=== PATIENT | male | born 1955 | race Caucasian/White ===

== ENCOUNTER 2017-08-27 12:43 | Emergency (ER) | payer OTHER ==
[2017-08-27] MEDS: DERMABOND TOPICAL SKIN ADHESIVE TOP (13:15)
[2017-08-27] MEDS: NS 1,000 ML IV (13:25)
[2017-08-27] MEDS: levETIRAcetam INJection 1,000 MG in D5W 100 ML IV (13:29)
[2017-08-27 13:32] LABS: BASO % 0.2 % (0.0-1.0); EOS % 0.2 % (0.0-3.0); HEMATOCRIT 36.1 % (42.0-52.0); HEMOGLOBIN 12.3 g/dl (13.5-17.5); IMMATURE GRANULOCYTE % 0.4 % (0-3.0); LYMPH # 0.7 10^3/uL (1.5-4.5); MEAN CORPUSCULAR HGB CONC 34.1 g/dl (32.0-36.5); MEAN CORPUSCULAR VOLUME 105.6 fl (80.0-96.0); MONO # 0.2 10^3/uL (0.0-0.8); MONO % 3.3 % (0.0-5.0); NEUTROPHILS # 4.6 10^3/uL (1.8-7.7); NEUTROPHILS % 83.9 % (36.0-66.0); PLATELET COUNT, AUTOMATED 140 10^3/uL (150-450); RED BLOOD COUNT 3.42 10^6/uL (4.30-6.10); RED CELL DISTRIBUTION WIDTH 13.7 % (11.5-14.5); WHITE BLOOD COUNT 5.4 10^3/uL (4.0-10.0)
[2017-08-27 14:31] LABS: LACTIC ACID SEPSIS PROTOCOL 1.2 MMOL/L (0.4-2.0)
[2017-08-27 14:34] LABS: ALBUMIN 3.8 GM/DL (3.2-5.2); ALBUMIN/GLOBULIN RATIO 1.03 (1.00-1.93); ALKALINE PHOSPHATASE 37 U/L (45-117); ALT/SGPT 77 U/L (12-78); ANION GAP 6 MEQ/L (8-16); AST/SGOT 67 U/L (7-37); BILIRUBIN,DIRECT 0.3 MG/DL (0.0-0.2); BILIRUBIN,TOTAL 0.6 MG/DL (0.2-1.0); BLOOD UREA NITROGEN 18 MG/DL (7-18); CALCIUM LEVEL 8.1 MG/DL (8.8-10.2); CARBON DIOXIDE LEVEL 29 MEQ/L (21-32); CHLORIDE LEVEL 107 MEQ/L (98-107); CPK CREATINE PHOSPHOKINASE 45 U/L (39-308); CREATININE FOR GFR 0.82 MG/DL (0.70-1.30); ETHYL ALCOHOL (ETHANOL) 0.007 % (0.000-0.010); GLOMERULAR FILTRATION RATE > 60.0 (>49); GLUCOSE, FASTING 134 MG/DL (70-100); POTASSIUM SERUM 4.5 MEQ/L (3.5-5.1); SALICYLATE LEVEL 3.4 MG/DL (5.0-30.0); SODIUM LEVEL 142 MEQ/L (136-145); TOTAL PROTEIN 7.5 GM/DL (6.4-8.2); TROPONIN I < 0.02 NG/ML (< 0.10)
[2017-08-27 14:37] LABS: ACETAMINOPHEN LEVEL < 2.0 UG/ML (10.0-30.0)
[2017-08-27 14:39] LABS: CK-MB VALUE MASS < 1.0 NG/ML (<3.6); MB/CK RELATIVE INDEX 2.22 (< OR =4); THYROID STIMULATING HORMONE 0.721 uIU/ML (0.358-3.740)
== END 2017-08-27 15:23 | disposition home or self-care (01) ==
LOC: M ED 12:43
DX: G40.209 Localization-related (focal) (partial) symptomatic epilepsy and epileptic syndromes with complex partial seizures, not intractable, without status epilepticus (principal); S01.81XA Laceration without foreign body of other part of head, initial encounter; X58.XXXA Exposure to other specified factors, initial encounter; Y92.89 Other specified places as the place of occurrence of the external cause; R00.1 Bradycardia, unspecified; I51.9 Heart disease, unspecified; Z87.891 Personal history of nicotine dependence
CPT/HCPCS: J1953

== ENCOUNTER 2020-10-27 16:31 | Inpatient (IN) | payer OTHER ==
[2020-10-27] VITALS (20 sets, daily range): BP systolic 70–131; BP diastolic 50–77
[~2020-10-27] VITALS: Ht 172.7 cm; Wt 75.2 kg
[2020-10-27] MEDS ORDERED: LORazepam 2 MG/ML VIAL IV STA (16:40)
[2020-10-27] MEDS ORDERED: LORazepam 2 MG/ML VIAL As Ordered ONE (16:41)
[2020-10-27] MEDS ORDERED: PROPOFOL 1,000 MG/100 ML VIAL As Ordered ONE (17:04)
[2020-10-27 17:13] LABS: BASO # 0.1 10^3/uL (0.0-0.2); BASO % 0.5 % (0.0-1.0); EOS # 0.1 10^3/uL (0.0-0.5); EOS % 0.7 % (0.0-3.0); HEMOGLOBIN 13.8 g/dl (13.5-17.5); LYMPH % 18.8 % (24.0-44.0); MEAN CORPUSCULAR HEMOGLOBIN 36.3 pg (27.0-33.0); MEAN CORPUSCULAR HGB CONC 32.1 g/dl (32.0-36.5); MEAN CORPUSCULAR VOLUME 113.2 fl (80.0-96.0); MONO # 1.2 10^3/uL (0.0-0.8); MONO % 11.3 % (2.0-8.0); NEUTROPHILS # 6.9 10^3/uL (1.5-8.5); NEUTROPHILS % 66.5 % (36.0-66.0); PLATELET COUNT, AUTOMATED 137 10^3/uL (150-450); WHITE BLOOD COUNT 10.4 10^3/uL (4.0-10.0)
[2020-10-27] MEDS ORDERED: propofoL 1,000 MG in IV 1 EA IV SCH (17:20)
[2020-10-27 17:47] LABS: ALBUMIN 3.9 GM/DL (3.2-5.2); ALT/SGPT 59 U/L (12-78); BILIRUBIN,DIRECT 0.3 MG/DL (0.0-0.2); BILIRUBIN,TOTAL 0.8 MG/DL (0.2-1.0); BLOOD UREA NITROGEN 10 MG/DL (7-18); CALCIUM LEVEL 9.4 MG/DL (8.8-10.2); CARBON DIOXIDE LEVEL 8 MEQ/L (21-32); CHLORIDE LEVEL 96 MEQ/L (98-107); CK-MB VALUE MASS 15.2 NG/ML (<3.6); CPK CREATINE PHOSPHOKINASE 526 U/L (39-308); CREATININE FOR GFR 1.32 MG/DL (0.70-1.30); GLOMERULAR FILTRATION RATE 58.1 (>49); GLUCOSE, FASTING 162 MG/DL (70-100); MB/CK RELATIVE INDEX 2.89 (< OR =4); SODIUM LEVEL 138 MEQ/L (136-145); TOTAL PROTEIN 7.5 GM/DL (6.4-8.2); TROPONIN I < 0.02 NG/ML (< 0.10)
--- NOTE | 2020-10-27 18:00 | REPVR ---
PROCEDURE INFORMATION: Exam: XR Chest Exam date and time: 10/27/2020 5:28 PM Age: 65 years old Clinical indication: Other: Post intubation TECHNIQUE: Imaging protocol: XR of the chest. Views: 1 view. COMPARISON: No relevant prior studies available. FINDINGS: Tubes, catheters and devices: Tip of endotracheal tube 4 cm proximal to the cruzito. Lungs: Well inflated lungs may indicate COPD. No acute infiltrates. Prominent pulmonary hilar bilaterally with increased density suggesting calcified lymphadenopathy. Pleural spaces: Unremarkable. No pleural effusion. No pneumothorax. Heart/Mediastinum: See "Lungs" finding. Bones/joints: Status post sternotomy. IMPRESSION: 1. Well inflated lungs may indicate COPD. 2. Prominent pulmonary hilar bilaterally with increased density suggesting calcified lymphadenopathy. 3. No acute findings. Electronically signed by: Toni Thompson On 10/27/2020 18:00:25 PM
--- NOTE | 2020-10-27 18:02 | REPVR ---
PROCEDURE INFORMATION: Exam: XR Chest Exam date and time: 10/27/2020 5:28 PM Age: 65 years old Clinical indication: Other: Change of the tube; Additional info: Change of tube position TECHNIQUE: Imaging protocol: XR of the chest. Views: 1 view. COMPARISON: No relevant prior studies available. FINDINGS: Tubes, catheters and devices: Tip of endotracheal tube 4.3 cm proximal to the cruzito. Lungs: COPD. Pleural spaces: Unremarkable. No pleural effusion. No pneumothorax. Heart/Mediastinum: Prominent pulmonary hilar bilaterally with probable bilateral calcified lymphadenopathy. Bones/joints: Status post sternotomy. IMPRESSION: 1. COPD. 2. Prominent pulmonary hilar bilaterally with probable bilateral calcified lymphadenopathy. 3. No acute findings. Electronically signed by: Toni Thompson On 10/27/2020 18:02:09 PM
[2020-10-27 18:04] LABS: ETHYL ALCOHOL (ETHANOL) 0.042 % (0.000-0.010)
--- NOTE | 2020-10-27 18:12 | REPVR ---
PROCEDURE INFORMATION: Exam: CT Chest Without Contrast; Diagnostic Exam date and time: 10/27/2020 5:38 PM Age: 65 years old Clinical indication: Injury or trauma; Fall; Blunt trauma (contusions or hematomas) TECHNIQUE: Imaging protocol: Diagnostic computed tomography of the chest without contrast. 3D rendering (Not supervised by radiologist): MIP and/or 3D reconstructed images were created by the technologist. Radiation optimization: All CT scans at this facility use at least one of these dose optimization techniques: automated exposure control; mA and/or kV adjustment per patient size (includes targeted exams where dose is matched to clinical indication); or iterative reconstruction. COMPARISON: CR Chest, 1 view 10/27/2020 4:55 PM FINDINGS: Tubes, catheters and devices: Tip of endotracheal tube 3.7 cm proximal to the cruzito. NG tube tip located in the stomach. Lungs: Coarse parenchymal stranding with small foci of ground-glass opacity demonstrated in the posterior segment of the right upper lobe, superior segment of the right lower lobe, and right middle lobe. Findings may represent a combination of chronic fibrotic scarring associated with atelectasis. A small focus of pneumonitis not absolutely excluded. Calcified granuloma right lower lobe. Pleural spaces: Unremarkable. No pneumothorax. No pleural effusion. Heart: There is moderate atherosclerotic calcification of the coronary arteries. Aorta: There is fusiform dilatation of the supravalvular ascending thoracic aorta which measures 3.7 cm. maximally. There is no saccular component. There is mild atherosclerosis in the thoracic aorta. Lymph nodes: Calcified right hilar lymphadenopathy. Bones/joints: The spine demonstrates mild degenerative changes. Status post sternotomy. Soft tissues: Unremarkable. IMPRESSION: 1. Coarse parenchymal infiltrates with ground-glass opacities as described above. Finding likely chronic although the possibility of an acute pneumonitis not absolutely excluded. 2. There is fusiform dilatation of the supravalvular ascending thoracic aorta which measures 3.7 cm. maximally. There is no saccular component. 3. Calcified right hilar lymphadenopathy. 4. Findings consistent with remote intrathoracic granulomatous infection. Electronically signed by: Toni Thompson On 10/27/2020 18:12:26 PM
--- NOTE | 2020-10-27 18:18 | REPVR ---
PROCEDURE INFORMATION: Exam: CT Head Without Contrast Exam date and time: 10/27/2020 5:38 PM Age: 65 years old Clinical indication: Injury or trauma; Fall; Blunt trauma (contusions or hematomas) TECHNIQUE: Imaging protocol: Computed tomography of the head without contrast. Axial and coronal reformatted images were created and reviewed. Radiation optimization: All CT scans at this facility use at least one of these dose optimization techniques: automated exposure control; mA and/or kV adjustment per patient size (includes targeted exams where dose is matched to clinical indication); or iterative reconstruction. COMPARISON: CT Head without contrast 08/27/2017 1:25 PM FINDINGS: Brain: Patchy areas of hypoattenuation in the periventricular and subcortical white matter, consistent with chronic small vessel ischemic disease. No CT evidence of acute intracranial hemorrhage or acute territorial infarction. No significant mass effect or midline shift. Basal cisterns patent. Cerebral ventricles: Prominence of the cortical sulci, cisterns and ventricular system, consistent with cerebral and cerebellar volume loss. Paranasal sinuses: Unremarkable. No fluid levels. Mastoid air cells: Partial opacification of the right mastoid air cells. Vasculature: Calcific atherosclerotic disease in the cavernous internal carotid arteries, as well as the vertebro-basilar system. Bones/joints: No acute osseous abnormality. Soft tissues: Grossly unremarkable. IMPRESSION: 1. No CT evidence of acute intracranial pathology. 2. Additional findings, as above. Electronically signed by: Jose Ordonez On 10/27/2020 18:18:15 PM
[2020-10-27] MEDS ORDERED: MIDAZOLAM INJ 2MG/2ML VIAL (J2250 PER 1MG) As Ordered ONE ×2 (18:19→18:20)
--- NOTE | 2020-10-27 18:23 | REPVR ---
PROCEDURE INFORMATION: Exam: CT Cervical Spine Without Contrast Exam date and time: 10/27/2020 5:38 PM Age: 65 years old Clinical indication: Injury or trauma; Fall; Blunt trauma TECHNIQUE: Imaging protocol: Computed tomography images of the cervical spine without contrast. Axial, coronal and sagittal reformatted images were created and reviewed. Radiation optimization: All CT scans at this facility use at least one of these dose optimization techniques: automated exposure control; mA and/or kV adjustment per patient size (includes targeted exams where dose is matched to clinical indication); or iterative reconstruction. COMPARISON: CT Head without contrast 08/27/2017 1:25 PM FINDINGS: Bones/joints: Osteopenia. Exaggeration of the normal cervical lordosis. No CT evidence of acute fracture, dislocation or subluxation. Alignment anatomic. Vertebral body heights maintained. Discs/Spinal canal/Neural foramina: Mild multilevel degenerative changes, characterized by disc space narrowing, osteophytosis and uncovertebral and facet joint hypertrophy. Mild multilevel spinal canal and neural foraminal narrowing. Lungs: Grossly unremarkable. Soft tissues: Grossly unremarkable. IMPRESSION: 1. No CT evidence of acute cervical spine traumatic injury. 2. Additional findings, as above. Electronically signed by: Jose Ordonez On 10/27/2020 18:22:31 PM
[2020-10-27 18:32] LABS: AMPHETAMINES LEVEL URINE NEGATIVE (NEGATIVE); BARBITURATES URINE NEGATIVE (NEGATIVE); BENZODIAZEPINES URINE NEGATIVE (NEGATIVE); CANNABINOIDS URINE POSITIVE (NEGATIVE); COCAINE METABOLITE URINE NEGATIVE (NEGATIVE); METHADONE URINE NEGATIVE (NEGATIVE); OPIATES URINE NEGATIVE (NEGATIVE); PHENCYCLIDINE URINE NEGATIVE (NEGATIVE)
[2020-10-27] MEDS ORDERED: MIDAZOLAM HCL 50 MG in D5W 40 ML IV SCH (18:35)
[2020-10-27 18:59] LABS: RSV AMPLIFICATION NEGATIVE (NEGATIVE)
[2020-10-27] MEDS ORDERED: LR 1,000 ML IV ONE (19:05)
--- NOTE | 2020-10-27 19:32 | HPEPDOC ---
[facility] Medical History & Physical Date of Admission Oct 27, 2020 Date of Service: Oct 27, 2020 Attending Physician: RAYMON CARLOS MD History and Physical CHIEF COMPLAINT: Seizure, altered mental status, respiratory failure HISTORY OF PRESENT ILLNESS: This is a 65-year-old gentleman with past medical history of heart valve replacement, polysubstance abuse, alcohol dependency, seizure disorder who was brought in by EMS for altered mental status and seizure. Per EMS report, patient was found in the hallway of his apartment having witnessed seizure by his neighbor. EMS administered Ativan and his seizure broke. However, when he was brought into the emergency department, he had another generalized tonic-clonic seizure that required Ativan and Versed. He was also intubated for airway protection by emergency department. No other information was able to be obtained as there was no family member. I spoke with Jocelyn Rojas who was his partner but broke up 3 years ago. I was not able to obtain any other useful information from her as they have been for the last 3 years. She did tell me that patient had a heart valve placed at [facility]. Based on chart review available, patient had history of polysubstance abuse most notable for cannabinoid and alcohol. He does frequently visit to the emergency department for alcohol intoxication. Upon arrival to the hospital, patient had a tonic-clonic seizure therefore patient was intubated for airway protection. Vital signs stable on admission other than tachycardia. CBC with slight leukocytosis of WBC 10,000. He has slight MITCH with creatinine of 1.3. However, his anion gap is 32. Lactic acid level is 27. He has slight mild rhabdomyolysis with CK of 500s. Serum alcohol level is 4 times the upper limit of normal. Urine toxicology also positive for cannabinoid. [id number] troponin was negative. CT scan of the brain chest and cervical spine showed no gross abnormality. ICU was consulted for further management. PAST MEDICAL HISTORY: Unverified, based on chart review, patient has history of heart valve repl acement, seizure disorder, history of polysubstance abuse and alcoholism. PAST SURGICAL HISTORY: Heart valve replacement SOCIAL HISTORY: Patient is from his partner. He has history of cannabinoid use. He is an alcoholic. FAMILY HISTORY: Unable to obtain as patient is currently intubated and sedated. ALLERGIES: Please see below. REVIEW OF SYSTEMS: Unable to obtain as patient is currently intubated and sedated. HOME MEDICATIONS: Please see below. PHYSICAL EXAMINATION: VITAL SIGNS: See below. GENERAL APPEARANCE: Chronically ill-appearing. Agitated. HEENT: No evidence of JVD or cervical adenopathy. Intubated. CARDIOVASCULAR: Systolic murmur with no evidence of extra heart sounds. LUNGS: Clear to auscultation bilaterally with no evidence of wheezing, rhonchi, crackles. ABDOMEN: Soft nontender with active bowel sounds. MUSCULOSKELETAL: No evident joint effusion or joint swelling. EXTREMITIES: No evidence of clubbing or pedal edema. NEUROLOGICAL: Nonfocal. PSYCHIATRIC: Cannot be assessed. LABORATORY DATA: See below. MICROBIOLOGY: Please see below. ASSESSMENT: This is a 65-year-old gentleman with past medical history of heart valve replacement, polysubstance abuse, alcohol dependency, seizure disorder who was brought in by EMS for altered mental status and seizure. #Acute respiratory failure secondary to inability to protect airway -We will remain intubated on mechanical ventilator. Setting at respiratory rate of 18, tidal volume 450, PEEP 5, FiO2 50%. Post intubation ABG has been ordered. #Metabolic encephalopathy secondary to postictal state -Patient will remain intubated and sedated with propofol and Versed plus Versed as needed. He will most likely need EEG. #MITCH -Likely secondary to prerenal component with intrinsic renal secondary from rh abdomyolysis. Patient received 1 L of isotonic crystalloid in the emergency department. He will receive additional 1 L of lactated Ringer's along with lactic ringer at 100 cc/h. We will continue monitor urine output. #Anion gap metabolic acidosis secondary to severe lactic acidosis -This is likely from seizure activity. We will continue to trend lactate until normalized. He will continue with maintenance IV fluid ministration. #Alcohol intoxication -Patient will be sedated on Versed and propofol at this point. He will need to be monitored for CIWA when she is extubated. #History of seizure disorder -It appears that patient was taking Keppra in the past as evident by supratherapeutic Keppra level. I have sent Keppra level. I will get a more information from [facility] neurology department which antiepileptic medication that he is taking. -He may need to have EEG before he gets extubated. #Rhabdomyolysis -From seizure activity. We will continue with maintenance IV fluid ministration. #Macrocytosis -Likely secondary to folate deficiency. Patient will receive thiamine and folate acid supplementation. #History of the heart valve replacement -It appears based on the CT scan of the chest he has a bioprosthetic mitral valve placed. However I do not have any information on this. I have requested [facility] to obtain and fax records of his heart surgery. It appears he is not on any anticoagulant. DVT prophylaxis: Heparin subcutaneous GI prophylaxis: Protonix Diet: N.p.o. Vital Signs Vital Signs Date Time Temp Pulse Resp B/P (MAP) Pulse Ox O2 Delivery O2 Flow Rate FiO2 10/27/20 18:52 146 115/70 99 Ventilator 10/27/20 17:20 40 10/27/20 17:19 98.8 10/27/20 17:15 16 Laboratory Data Labs 24H Laboratory Tests 2 10/27/20 16:53: Immature Granulocyte % (Auto) 2.2, Neutrophils (%) (Auto) 66.5H, Lymphocytes (%) (Auto) 18.8L, Monocytes (%) (Auto) 11.3H, Eosinophils (%) (Auto) 0.7, Basophils (%) (Auto) 0.5, Neutrophils # (Auto) 6.9, Lymphocytes # (Auto) 2.0, Monocytes # (Auto) 1.2H, Eosinophils # (Auto) 0.1, Basophils # (Auto) 0.1, Nucleated Red Blood Cells % (auto) 0.0, Anion Gap 34H, Glomerular Filtration Rate 58.1, Calcium Level 9.4, Total Bilirubin 0.8, Direct Bilirubin 0.3H, Aspartate Amino Transf (AST/SGOT) 65H, Alanine Aminotransferase (ALT/SGPT) 59, Alkaline Phosphatase 63, Total Creatine Kinase 526H, Creatine Kinase MB 15.2H, Creatine Kinase MB Relative Index 2.89, Troponin I < 0.02, Total Protein 7.5, Albumin 3.9, Albumin/Globulin Ratio 1.1, Thyroid Stimulating Hormone (TSH) 2.320, Ethyl Alcohol Level 0.042H 10/27/20 16:54: Urine Opiates Screen NEGATIVE, Urine Methadone Screen NEGATIVE, Urine Barbiturates Screen NEGATIVE, Urine Phencyclidine Screen NEGATIVE, Urine Amphetamines Screen NEGATIVE, Urine Benzodiazepines Screen NEGATIVE, Urine Cocaine Metabolite Screen NEGATIVE, Urine Cannabinoids Screen POSITIVEH 10/27/20 16:55: Lactic Acid Level 27.5*H 10/27/20 17:31: POC Troponin I (Misc) 0.01 10/27/20 17:36: Bedside Glucose (Misc Panel) 147H 10/27/20 17:41: Coronavirus (COVID-19)(PCR) NEGATIVE, Influenza Type A (RT-PCR) NEGATIVE, Influenza Type B (RT-PCR) NEGATIVE, Respiratory Syncytial Virus (PCR) NEGATIVE CBC/BMP Laboratory Tests 10/27/20 16:53 Allergies Coded Allergies: No Known Allergies (Unverified , 08/27/17) A-FIB/CHADSVASC A-FIB History Current/History of A-Fib/PAF?: No Current PO Anticoag Therapy: No RAYMON CARLOS MD Oct 27, 2020 19:31
[2020-10-27] MEDS ORDERED: ROCURONIUM BROMIDE 50 MG/5 ML VIAL IV SCH (19:40)
[2020-10-27] MEDS ORDERED: MIDAZOLAM INJ 2MG/2ML VIAL (J2250 PER 1MG) IV ONE (19:40)
[2020-10-27] MEDS ORDERED: ETOMIDATE INJ 20MG/10ML VIAL IV STA (19:40)
[2020-10-27] MEDS ORDERED: LR 1,000 ML IV SCH (19:45)
[2020-10-27 19:59] LABS: ACETAMINOPHEN LEVEL < 2.0 UG/ML (10.0-30.0); SALICYLATE LEVEL 3.6 MG/DL (5.0-30.0)
[2020-10-27] MEDS: HEPARIN SOD (PORCINE) 5000UNITS/ML 1ML VIAL/SYRINGE SC SCH (21:11)
[2020-10-27] MEDS: MIDAZOLAM INJ 2MG/2ML VIAL (J2250 PER 1MG) IV PRN (21:17)
[2020-10-27] MEDS: CHLORHEXIDINE GLUCONATE 0.12 % 15ML UDC (PERIDEX ORAL RINSE) MT SCH (21:18)
[2020-10-27] MEDS ORDERED: REFRIGERATOR IV KEYS XX PRN (21:30)
[2020-10-27] MEDS: NOREPINEPHRINE BITARTRATE 8 MG in D5W 492 ML IV SCH (21:46)
[2020-10-27] MEDS: MIDAZOLAM HCL 100 MG in D5W 80 ML IV SCH (22:14)
[2020-10-27] MEDS: propofoL 1,000 MG in IV 1 EA IV SCH (22:17)
[2020-10-28] VITALS (91 sets, daily range): BP systolic 87–144; BP diastolic 56–89
[2020-10-28] MEDS: propofoL 1,000 MG in IV 1 EA IV SCH ×3 (03:45→18:26)
[2020-10-28 05:24] LABS: BASO % 0.2 % (0.0-1.0); EOS % 0.2 % (0.0-3.0); HEMATOCRIT 33.1 % (42.0-52.0); HEMOGLOBIN 11.7 g/dl (13.5-17.5); LYMPH # 1.1 10^3/uL (1.5-5.0); LYMPH % 9.6 % (24.0-44.0); MEAN CORPUSCULAR HEMOGLOBIN 35.7 pg (27.0-33.0); MEAN CORPUSCULAR HGB CONC 35.3 g/dl (32.0-36.5); MEAN CORPUSCULAR VOLUME 100.9 fl (80.0-96.0); MONO # 1.1 10^3/uL (0.0-0.8); MONO % 9.6 % (2.0-8.0); NEUTROPHILS # 8.9 10^3/uL (1.5-8.5); PLATELET COUNT, AUTOMATED 101 10^3/uL (150-450); RED BLOOD COUNT 3.28 10^6/uL (4.30-6.10); WHITE BLOOD COUNT 11.2 10^3/uL (4.0-10.0)
[2020-10-28 05:53] LABS: ALT/SGPT 56 U/L (12-78); BLOOD UREA NITROGEN 13 MG/DL (7-18); CALCIUM LEVEL 8.2 MG/DL (8.8-10.2); CARBON DIOXIDE LEVEL 27 MEQ/L (21-32); CHLORIDE LEVEL 102 MEQ/L (98-107); CREATININE FOR GFR 0.92 MG/DL (0.70-1.30); GLOMERULAR FILTRATION RATE > 60.0 (>49); GLUCOSE, FASTING 118 MG/DL (70-100); POTASSIUM SERUM 3.2 MEQ/L (3.5-5.1); SODIUM LEVEL 138 MEQ/L (136-145); TOTAL PROTEIN 5.7 GM/DL (6.4-8.2)
[2020-10-28] MEDS: HEPARIN SOD (PORCINE) 5000UNITS/ML 1ML VIAL/SYRINGE SC SCH ×3 (06:15→21:15)
[2020-10-28] MEDS ORDERED: POTASSIUM CHLORIDE 10% LIQ 20 MEQ/15 ML UDC PO ONE (06:40)
[2020-10-28] MEDS ORDERED: ASPI-161 PO (07:10)
[2020-10-28] MEDS ORDERED: LEVE750T5 PO (07:10)
[2020-10-28] MEDS ORDERED: METO1TAB32 PO (07:10)
[2020-10-28] MEDS ORDERED: D31000TA2 PO (07:10)
[2020-10-28] MEDS ORDERED: ROSU40TA4 PO (07:10)
[2020-10-28] MEDS ORDERED: COMMENTS (07:11)
[2020-10-28] MEDS ORDERED: HOME MED LIST COMPLETE! XX SCH (07:15)
--- NOTE | 2020-10-28 08:09 | IPNPDOC ---
Subjective Date Seen The patient was seen on 10/28/20. Subjective Chief Complaint/HPI Patient remains intubated and sedated. General: Reports: ROS Unobtainable Objective Physical Examination General Exam: Positive: No Acute Distress Eye Exam: Negative: Sclera icteric ENT Exam: Positive: Atraumatic Neck Exam: Positive: Supple; Negative: JVD Chest Exam: Positive: Clear to auscultation, Normal air movement Heart Exam: Positive: Rate Normal, Regular Rhythm, Murmurs Abdomen Exam: Positive: Normal bowel sounds, Soft, Tenderness Extremity Exam: Negative: Clubbing, Cyanosis, Edema Skin Exam: Positive: Other skin issue (Multiple skin breakdown on his lower extremity and scalp); Negative: Rash Neuro Exam: Positive: Other (Unable to assess) Psych Exam: Positive: Other (Unable to assess) Assessment /Plan Assessment This is a 65-year-old gentleman with past medical history of heart valve replacement, hepatitis C treated, polysubstance abuse, alcohol dependency, seizure disorder who was brought in by EMS for altered mental status and seizure. Plan/VTE VTE Prophylaxis Ordered?: Yes Plan #Acute respiratory failure secondary to inability to protect airway -We will remain intubated on mechanical ventilator. Setting at respiratory rate of 18, tidal volume 450, PEEP 5, FiO2 50%. #Metabolic encephalopathy secondary to postictal state -Patient will remain intubated and sedated with propofol and Versed plus Versed as needed. He will most likely need EEG. -We will perform sedation holiday tomorrow. #MITCH - resolved -Likely secondary to prerenal component with intrinsic renal secondary from rhabdomyolysis. Patient received 1 L of isotonic crystalloid in the emergency department. He will receive additional 1 L of lactated Ringer's along with lactic ringer at 100 cc/h which has been discontinued. Creatinine back to normal. #Scalp laceration from mechanical fall -Surgery consulted for suture. #Anion gap metabolic acidosis secondary to severe lactic acidosis -This has been resolved with administration of IV fluid. #Alcohol intoxication -Patient will be sedated on Versed and propofol at this point. He will need to be monitored for CIWA when she is extubated. #History of seizure disorder -It appears that patient was taking Keppra in the past as evident by supratherapeutic Keppra level back in 2018. I have sent Keppra level. I will get a more information from [facility] on which antiepileptic medication that he was taking. -He may need to have EEG before he gets extubated. #Rhabdomyolysis -From seizure activity. #Macrocytosis -Likely secondary to folate deficiency. Patient will receive thiamine and fol ate acid supplementation. #History of the heart valve replacement -It appears based on the CT scan of the chest he has a bioprosthetic mitral valve placed. However I do not have any information on this. I have requested [facility] to obtain and fax records of his heart surgery. It appears he is not on any anticoagulant. #Hypokalemia-repleted #History of hepatitis C treated (treated) DVT prophylaxis: Heparin subcutaneous GI prophylaxis: Protonix Diet: N.p.o. Total critical care time excluding procedures 30 minutes. Disposition Continue ICU care. VS, I&O, 24H, Kory Vital Signs/I&O Vital Signs Date Time Temp Pulse Resp B/P (MAP) Pulse Ox O2 Delivery O2 Flow Rate FiO2 10/28/20 06:00 50 10/28/20 06:00 77 97/59 (72) 100 Ventilator 10/28/20 04:00 98.0 18 I&O- Last 24 Hours up to 6 AM 10/28/20 06:00 Intake Total 2019.5 ml Output Total 755 ml Balance 1264.5 ml Laboratory Data 24H LABS Laboratory Tests 2 10/27/20 16:53: Immature Granulocyte % (Auto) 2.2, Neutrophils (%) (Auto) 66.5H, Lymphocytes (%) (Auto) 18.8L, Monocytes (%) (Auto) 11.3H, Eosinophils (%) (Auto) 0.7, Basophils (%) (Auto) 0.5, Neutrophils # (Auto) 6.9, Lymphocytes # (Auto) 2.0, Monocytes # (Auto) 1.2H, Eosinophils # (Auto) 0.1, Basophils # (Auto) 0.1, Nucleated Red Blood Cells % (auto) 0.0, Anion Gap 34H, Glomerular Filtration Rate 58.1, Calcium Level 9.4, Total Bilirubin 0.8, Direct Bilirubin 0.3H, Aspartate Amino Transf (AST/SGOT) 65H, Alanine Aminotransferase (ALT/SGPT) 59, Alkaline Phosphatase 63, Total Creatine Kinase 526H, Creatine Kinase MB 15.2H, Creatine Kinase MB Relative Index 2.89, Troponin I < 0.02, Total Protein 7.5, Albumin 3.9, Albumin/Globulin Ratio 1.1, Thyroid Stimulating Hormone (TSH) 2.320, Salicylates Level 3.6L, Acetaminophen Level < 2.0L, Ethyl Alcohol Level 0.042H 10/27/20 16:54: Urine Opiates Screen NEGATIVE, Urine Methadone Screen NEGATIVE, Urine Barbiturates Screen NEGATIVE, Urine Phencyclidine Screen NEGATIVE, Urine Amphetamines Screen NEGATIVE, Urine Benzodiazepines Screen NEGATIVE, Urine Cocaine Metabolite Screen NEGATIVE, Urine Cannabinoids Screen POSITIVEH 10/27/20 16:55: Lactic Acid Level 27.5*H 10/27/20 17:31: POC Troponin I (Misc) 0.01 10/27/20 17:36: Bedside Glucose (Misc Panel) 147H 10/27/20 17:41: Coronavirus (COVID-19)(PCR) NEGATIVE, Influenza Type A (RT-PCR) NEGATIVE, Influenza Type B (RT-PCR) NEGATIVE, Respiratory Syncytial Virus (PCR) NEGATIVE 10/27/20 21:45: 10/27/20 23:01: Lactic Acid Followup at 4 Hours 1.7 10/28/20 05:09: Immature Granulocyte % (Auto) 0.4, Neutrophils (%) (Auto) 80.0H, Lymphocytes (%) (Auto) 9.6L, Monocytes (%) (Auto) 9.6H, Eosinophils (%) (Auto) 0.2, Basophils (%) (Auto) 0.2, Neutrophils # (Auto) 8.9H, Lymphocytes # (Auto) 1.1L, Monocytes # (Auto) 1.1H, Eosinophils # (Auto) 0.0, Basophils # (Auto) 0.0, Nucleated Red Blood Cells % (auto) 0.0, Anion Gap 9, Glomerular Filtration Rate > 60.0, Calcium Level 8.2L, Total Bilirubin 1.0, Aspartate Amino Transf (AST/SGOT) 108H, Alanine Aminotransferase (ALT/SGPT) 56, Alkaline Phosphatase 41L, Total Protein 5.7#L, Albumin 3.0#L, Albumin/Globulin Ratio 1.1 CBC/BMP Laboratory Tests 10/27/20 16:53 10/28/20 05:09 Microbiology Microbiology 10/27/20 Blood Culture, Received Pending 10/27/20 Blood Culture, Received Pending RAYMON CARLOS MD Oct 28, 2020 08:09
--- NOTE | 2020-10-28 08:55 | ROOPDOC ---
[facility] Report Of Operation Report of Operation DATE OF PROCEDURE: 10/28/20 PROCEDURE PERFORMED: Left subclavian central venous catheter insertion. PREPROCEDURE DIAGNOSES: Hypotension POSTPROCEDURE DIAGNOSES: Hypotension SURGEON: Dr. Stevenson MD Procedure consent obtained from: Jocelyn Crystal (verbal consent) ANESTHESIA: Local with 1% lidocaine. ESTIMATED BLOOD LOSS: Approximately 1 mL. COMPLICATIONS: None. PROCEDURE NOTE: A time out was performed. My hands were washed immediately prior to the procedure. I wore a surgical cap, mask with protective eyewear, sterile gown and sterile gloves throughout the procedure. The patient was placed in Trendelenburg position. The left chest region was prepped using chlorhexidine scrub and draped in sterile fashion using a full drape and sterile probe cover and sterile gel employed. Anesthesia was achieved with 1% lidocaine. The introducer needle was inserted approximately two centimeters lateral to and 1 cm inferior to the normal curvature of the patient's clavicle. Venous blood was withdrawn. The syringe was removed and a guidewire was advanced into the introducer needle. A small incision was made at the skin surface with a scalpel and the introducer needle was exchanged for a dilator over the guidewire. After appropriate dilation was obtained, the dilator was exchanged over the wire for a triple lumen central venous catheter. The wire was removed and the catheter was sutured in place at 18 cm. A sterile sorbaview shield was placed over the catheter at the insertion site. The patient tolerated the procedure without any hemodynamic compromise. At time of procedure completion, all ports aspirated and flushed properly. Post-procedure chest x-ray show catheter tip is in SVC and there is no evidence of pneumothorax. Estimaged blood loss is 1 cc. RAYMON CARLOS MD Oct 28, 2020 08:55
--- NOTE | 2020-10-28 08:59 | REP ---
INDICATION: Line insertion. COMPARISON: Portable chest, 10/27/2020. TECHNIQUE: Upright AP portable chest image was obtained. FINDINGS: The lungs are clear. There are benign calcified hilar lymph nodes bilaterally. Endotracheal tube is again noted in good position. There has been interval placement of a nasogastric tube the tip of which cannot be seen. There is also been placement of a left subclavian deep line with the tip in the area of the superior vena cava. The heart size is normal. There is calcific vascular disease of the thoracic aorta. Status post median sternotomy. IMPRESSION: Interval placement of nasogastric tube and left subclavian deep line. No evidence of acute cardiopulmonary pathology. Other findings as noted. <Electronically signed by Gómez Lin > 10/28/20 [id number]
[2020-10-28] MEDS: FOLIC ACID 1 MG TAB NG SCH (09:14)
[2020-10-28] MEDS: PANTOPRAZOLE 40MG VIAL (C9113 PER 1) IV SCH (09:14)
[2020-10-28] MEDS: THIAMINE 100 MG TAB NG SCH (09:15)
[2020-10-28] MEDS: CHLORHEXIDINE GLUCONATE 0.12 % 15ML UDC (PERIDEX ORAL RINSE) MT SCH ×2 (09:15→21:14)
[2020-10-28] MEDS: NOREPINEPHRINE BITARTRATE 8 MG in D5W 492 ML IV SCH (10:11)
[2020-10-28 10:32] LABS: CENTRAL VEN BASE EXCESS 1.4
[2020-10-28] MEDS: MIDAZOLAM HCL 100 MG in D5W 80 ML IV SCH (11:58)
[2020-10-28 14:51] LABS: VENOUS BASE EXCESS 2.3 (-2.0-2.0); VENOUS HCO3 27.1 MEQ/L (23.0-27.0); VENOUS O2 SATURATION 89.6 % (60.0-80.0); VENOUS PARTIAL PRESSURE CO2 42.7 mmHg (38.0-50.0); VENOUS STANDARD HCO3 26.3 MEQ/L; VENOUS TOTAL CO2 28.4 MEQ/L (24.0-28.0)
[2020-10-28] MEDS: MIDAZOLAM INJ 2MG/2ML VIAL (J2250 PER 1MG) IV PRN ×2 (20:08→22:42)
[2020-10-28] MEDS: levETIRAcetam ORAL SOLUTION 500 MG/5 ML UDC NG SCH (21:15)
[2020-10-29] VITALS (59 sets, daily range): BP systolic 82–129; BP diastolic 55–81
[2020-10-29] MEDS: propofoL 1,000 MG in IV 1 EA IV SCH ×5 (00:42→23:00)
[2020-10-29] MEDS: NOREPINEPHRINE BITARTRATE 8 MG in D5W 492 ML IV SCH (04:54)
[2020-10-29] MEDS: HEPARIN SOD (PORCINE) 5000UNITS/ML 1ML VIAL/SYRINGE SC SCH ×3 (05:34→20:29)
[2020-10-29 05:45] LABS: BASO % 0.2 % (0.0-1.0); EOS % 0.4 % (0.0-3.0); HEMATOCRIT 31.5 % (42.0-52.0); LYMPH # 1.3 10^3/uL (1.5-5.0); LYMPH % 11.8 % (24.0-44.0); MEAN CORPUSCULAR HEMOGLOBIN 35.8 pg (27.0-33.0); MEAN CORPUSCULAR HGB CONC 34.9 g/dl (32.0-36.5); MEAN CORPUSCULAR VOLUME 102.6 fl (80.0-96.0); MONO # 0.8 10^3/uL (0.0-0.8); MONO % 7.7 % (2.0-8.0); NEUTROPHILS # 8.5 10^3/uL (1.5-8.5); NEUTROPHILS % 79.1 % (36.0-66.0); PLATELET COUNT, AUTOMATED 108 10^3/uL (150-450); RED BLOOD COUNT 3.07 10^6/uL (4.30-6.10); WHITE BLOOD COUNT 10.7 10^3/uL (4.0-10.0)
[2020-10-29 06:00] LABS: ALBUMIN 2.5 GM/DL (3.2-5.2); ALT/SGPT 44 U/L (12-78); BLOOD UREA NITROGEN 12 MG/DL (7-18); CALCIUM LEVEL 8.1 MG/DL (8.8-10.2); CARBON DIOXIDE LEVEL 29 MEQ/L (21-32); CHLORIDE LEVEL 105 MEQ/L (98-107); GLOMERULAR FILTRATION RATE > 60.0 (>49); GLUCOSE, FASTING 136 MG/DL (70-100); SODIUM LEVEL 139 MEQ/L (136-145); TOTAL PROTEIN 5.9 GM/DL (6.4-8.2)
[2020-10-29] MEDS: MIDAZOLAM HCL 100 MG in D5W 80 ML IV SCH (06:50)
[2020-10-29] MEDS ORDERED: POTASSIUM CHLORIDE 10% LIQ 20 MEQ/15 ML UDC PO ONE ×2 (08:45→10:00)
[2020-10-29] MEDS: THIAMINE 100 MG TAB NG SCH (09:44)
[2020-10-29] MEDS: FOLIC ACID 1 MG TAB NG SCH (09:44)
[2020-10-29] MEDS: CHLORHEXIDINE GLUCONATE 0.12 % 15ML UDC (PERIDEX ORAL RINSE) MT SCH ×2 (09:44→20:26)
[2020-10-29] MEDS: PANTOPRAZOLE 40MG VIAL (C9113 PER 1) IV SCH (09:45)
[2020-10-29] MEDS: levETIRAcetam ORAL SOLUTION 500 MG/5 ML UDC NG SCH ×2 (09:45→20:26)
[2020-10-29] MEDS: MIDAZOLAM INJ 2MG/2ML VIAL (J2250 PER 1MG) IV PRN ×2 (12:04→15:37)
--- NOTE | 2020-10-29 12:53 | IPNPDOC ---
Subjective Date Seen The patient was seen on 10/29/20. Subjective Chief Complaint/HPI Patient does wake up and spontaneously move all 4 extremities, no sedation. There is no evidence of seizure. However she is still intubated. General: Reports: ROS Unobtainable Objective Physical Examination General Exam: Positive: No Acute Distress Eye Exam: Negative: Sclera icteric ENT Exam: Positive: Atraumatic Neck Exam: Positive: Supple; Negative: JVD Chest Exam: Positive: Clear to auscultation, Normal air movement Heart Exam: Positive: Rate Normal, Regular Rhythm, Murmurs Abdomen Exam: Positive: Normal bowel sounds, Soft; Negative: Tenderness Extremity Exam: Negative: Clubbing, Cyanosis, Edema Skin Exam: Positive: Other skin issue (Scalp laceration with kalee); Negative: Rash Neuro Exam: Positive: Other (Unable to assess) Psych Exam: Positive: Other (Unable to assess) Assessment /Plan Assessment This is a 65-year-old gentleman with past medical history of heart valve replacement, hepatitis C treated, polysubstance abuse, alcohol dependency, seizure disorder who was brought in by EMS for altered mental status and seizure. Plan/VTE VTE Prophylaxis Ordered?: Yes Plan #Acute respiratory failure secondary to inability to protect airway -We will remain intubated on mechanical ventilator. Setting at respiratory rate of 18, tidal volume 450, PEEP 5, FiO2 30%. #Metabolic encephalopathy secondary to postictal state -Patient will remain intubated and sedated with propofol and Versed plus Versed as needed. He will most likely need EEG. -Daily sedation holiday #MITCH - resolved -Likely secondary to prerenal component with intrinsic renal secondary from rhabdomyolysis. Patient received 1 L of isotonic crystalloid in the emergency department. He will receive additional 1 L of lactated Ringer's along with lactic ringer at 100 cc/h which has been discontinued. Creatinine back to normal. #Scalp laceration from mechanical fall -Appreciate surgery intervention/kalee. #Anion gap metabolic acidosis secondary to severe lactic acidosis -This has been resolved with administration of IV fluid. #Alcohol intoxication -Patient will be sedated on Versed and propofol at this point. He will need to be monitored for CIWA when he is extubated. #Seizure episode with history of seizure disorder -Records obtained from [facility] shows that patient was taking 700 mg of Keppra. This has been restarted yesterday. There is no evidence of clinical seizure noted today while coming off sedation. -We will continue to monitor. He may need EEG prior to extubation. #Sedation related hypotension -Low-dose Levophed support. #Rhabdomyolysis -From seizure activity. Resolved with IV fluid ministration. #Macrocytosis -Likely secondary to folate deficiency. Patient is receiving thiamine and folate acid supplementation. #History of the mitral heart valve repair -Records from [facility] cardiology department shows that patient had a mitral valve repair and chordae tendon repair back in [address] [facility]. Post operati ve echocardiogram show intact mitral valve with severely dilated left atrium. He was on beta-dante which you are currently being held due to hypotension #Hypokalemia-repleted #History of hepatitis C treated (treated) DVT prophylaxis: Heparin subcutaneous GI prophylaxis: Protonix Diet: N.p.o. Total critical care time excluding procedures 30 minutes. Disposition ICU care. [facility] Vital Signs Date Time Temp Pulse Resp B/P (MAP) Pulse Ox O2 Delivery O2 Flow Rate FiO2 10/29/20 11:56 108 22 125/67 (86) 94 Ventilator 21 10/29/20 08:00 98.6 I&O- Last 24 Hours up to 6 AM 10/29/20 06:00 Intake Total 836.1 ml Output Total 1965 ml Balance -1128.9 ml Laboratory Data 24H LABS Laboratory Tests 2 10/28/20 14:36: Blood Gas Bicarbonate Standard 26.3, Venous Blood pH 7.420, Venous Blood Partial Pressure CO2 42.7, Venous Blood Partial Pressure O2 59.0H, Venous Blood Total Carbon Dioxide 28.4H, Venous Blood HCO3 27.1H, Venous Blood Oxygen Saturation 89.6H, Venous Blood Base Excess 2.3H 10/29/20 05:27: Immature Granulocyte % (Auto) 0.8, Neutrophils (%) (Auto) 79.1H, Lymphocytes (%) (Auto) 11.8L, Monocytes (%) (Auto) 7.7, Eosinophils (%) (Auto) 0.4, Basophils (%) (Auto) 0.2, Neutrophils # (Auto) 8.5, Lymphocytes # (Auto) 1.3L, Monocytes # (Auto) 0.8, Eosinophils # (Auto) 0.0, Basophils # (Auto) 0.0, Nucleated Red Blood Cells % (auto) 0.0 10/29/20 05:28: Anion Gap 5L, Glomerular Filtration Rate > 60.0, Calcium Level 8.1L, Total Bilirubin 1.0, Aspartate Amino Transf (AST/SGOT) 61H, Alanine Aminotransferase (ALT/SGPT) 44, Alkaline Phosphatase 45, Total Protein 5.9L, Albumin 2.5L, Albumin/Globulin Ratio 0.7 CBC/BMP Laboratory Tests 10/29/20 05:27 10/29/20 05:28 Microbiology Microbiology 10/27/20 Blood Culture - Preliminary, Resulted No growth after 24 hours . All specim... 10/27/20 Blood Culture - Preliminary, Resulted No growth after 24 hours . All specim... RAYMON CARLOS MD Oct 29, 2020 12:53
[2020-10-29] MEDS ORDERED: ACETAMINOPHEN 325 MG TAB PO PRN (16:15)
[2020-10-29] MEDS: AMPICILLIN SOD/SULBACTAM SOD 1.5 GM in D5W MINI-BAG PLUS 50 ML IV SCH (18:32)
[2020-10-30] VITALS (14 sets, daily range): BP systolic 82–141; BP diastolic 56–83
[2020-10-30] MEDS: NOREPINEPHRINE BITARTRATE 8 MG in D5W 492 ML IV SCH ×2
[2020-10-30] MEDS: AMPICILLIN SOD/SULBACTAM SOD 1.5 GM in D5W MINI-BAG PLUS 50 ML IV SCH ×5 (00:31→23:19)
[2020-10-30 04:58] LABS: BASO % 0.2 % (0.0-1.0); EOS # 0.1 10^3/uL (0.0-0.5); EOS % 1.1 % (0.0-3.0); HEMATOCRIT 29.6 % (42.0-52.0); HEMOGLOBIN 10.1 g/dl (13.5-17.5); LYMPH # 0.8 10^3/uL (1.5-5.0); LYMPH % 12.2 % (24.0-44.0); MEAN CORPUSCULAR HEMOGLOBIN 35.6 pg (27.0-33.0); MEAN CORPUSCULAR HGB CONC 34.1 g/dl (32.0-36.5); MEAN CORPUSCULAR VOLUME 104.2 fl (80.0-96.0); MONO # 0.5 10^3/uL (0.0-0.8); MONO % 8.1 % (2.0-8.0); NEUTROPHILS # 4.8 10^3/uL (1.5-8.5); NEUTROPHILS % 78.1 % (36.0-66.0); RED BLOOD COUNT 2.84 10^6/uL (4.30-6.10); WHITE BLOOD COUNT 6.2 10^3/uL (4.0-10.0)
[2020-10-30 05:26] LABS: PLATELET COUNT, AUTOMATED 96 10^3/uL (150-450)
[2020-10-30 05:33] LABS: ALBUMIN 2.5 GM/DL (3.2-5.2); ALT/SGPT 42 U/L (12-78); BILIRUBIN,TOTAL 1.1 MG/DL (0.2-1.0); BLOOD UREA NITROGEN 17 MG/DL (7-18); CALCIUM LEVEL 8.4 MG/DL (8.8-10.2); CARBON DIOXIDE LEVEL 29 MEQ/L (21-32); CHLORIDE LEVEL 106 MEQ/L (98-107); CREATININE FOR GFR 0.92 MG/DL (0.70-1.30); GLOMERULAR FILTRATION RATE > 60.0 (>49); GLUCOSE, FASTING 81 MG/DL (70-100); POTASSIUM SERUM 3.6 MEQ/L (3.5-5.1); SODIUM LEVEL 141 MEQ/L (136-145); TOTAL PROTEIN 5.5 GM/DL (6.4-8.2)
[2020-10-30] MEDS: HEPARIN SOD (PORCINE) 5000UNITS/ML 1ML VIAL/SYRINGE SC SCH ×3 (06:12→21:22)
[2020-10-30] MEDS: propofoL 1,000 MG in IV 1 EA IV SCH (06:12)
[2020-10-30] MEDS: PANTOPRAZOLE 40MG VIAL (C9113 PER 1) IV SCH (08:05)
[2020-10-30] MEDS: THIAMINE 100 MG TAB NG SCH (08:06)
[2020-10-30] MEDS: FOLIC ACID 1 MG TAB NG SCH (08:06)
[2020-10-30] MEDS: levETIRAcetam ORAL SOLUTION 500 MG/5 ML UDC NG SCH (08:06)
[2020-10-30] MEDS: CHLORHEXIDINE GLUCONATE 0.12 % 15ML UDC (PERIDEX ORAL RINSE) MT SCH ×2 (08:06→21:00)
[2020-10-30] MEDS ORDERED: LORazepam 2 MG TAB PO PRN ×2 (09:40)
--- NOTE | 2020-10-30 10:18 | IPNPDOC ---
Subjective Date Seen The patient was seen on 10/30/20. Subjective Chief Complaint/HPI Patient was awake and alert this morning. He has a strong gag and cough. He is moving all 4 extremities and following commands. Therefore patient was extubated this morning. General: Reports: ROS Unobtainable (Patient was intubated at the time of my examination.) Objective Physical Examination General Exam: Positive: No Acute Distress Eye Exam: Negative: Sclera icteric ENT Exam: Positive: Atraumatic Neck Exam: Positive: Supple; Negative: JVD Chest Exam: Positive: Clear to auscultation, Normal air movement Heart Exam: Positive: Rate Normal, Regular Rhythm, Murmurs Abdomen Exam: Positive: Normal bowel sounds, Soft; Negative: Tenderness Extremity Exam: Negative: Clubbing, Cyanosis, Edema Skin Exam: Positive: Other skin issue (Scalp laceration with kalee); Negative: Rash Neuro Exam: Positive: Other (Unable to assess) Psych Exam: Positive: Other (Unable to assess) Assessment /Plan Assessment This is a 65-year-old gentleman with past medical history of heart valve replacement, hepatitis C treated, polysubstance abuse, alcohol dependency, seizure disorder who was brought in by EMS for altered mental status and seizure. Plan/VTE VTE Prophylaxis Ordered?: Yes Plan #Acute respiratory failure secondary to inability to protect airway -He has very good gas exchange. He was following command this morning and moving all 4 extremities. He has strong gag and cough this morning. Therefore patient was extubated. #Metabolic encephalopathy secondary to postictal state -Resolved #MITCH -resolved after IV fluid administration. #Scalp laceration from mechanical fall -Appreciate surgery intervention/kalee. #Anion gap metabolic acidosis secondary to severe lactic acidosis -This has been resolved with administration of IV fluid. #Alcohol intoxication -Monitor CIWA and withdrawal. Ativan as needed. #Seizure episode with history of seizure disorder -Patient was not compliant with Keppra. Keppra 750 mg twice daily home dose was restarted on admission. The level drawn on admission is pending. #Rhabdomyolysis -From seizure activity. Resolved with IV fluid ministration. #Macrocytosis -Likely secondary to folate deficiency. Patient is receiving thiamine and folate acid supplementation. #History of the mitral heart valve repair -Records from [facility] cardiology department shows that patient had a mitral valve repair and chordae tendon repair back in [address] [facility]. Post operative echocardiogram show intact mitral valve with severely dilated left atrium. He was on beta-dante which you are currently being held due to hypotension #Hypokalemia-repleted #History of hepatitis C treated (treated) DVT prophylaxis: Heparin subcutaneous GI prophylaxis: Not indicated Diet: N.p.o. until he passes bedside swallow eval. Disposition Continue ICU care. VS, I&O, 24H, Fishbone Vital Signs/I&O Vital Signs Date Time Temp Pulse Resp B/P (MAP) Pulse Ox O2 Delivery O2 Flow Rate FiO2 10/30/20 08:00 30 10/30/20 07:08 80 0 99 10/30/20 04:00 98.9 115/70 (85) Ventilator I&O- Last 24 Hours up to 6 AM 10/30/20 06:00 Intake Total 387 ml Output Total 1570 ml Balance -1183 ml Laboratory Data 24H LABS Laboratory Tests 2 10/30/20 04:41: Immature Granulocyte % (Auto) 0.3, Neutrophils (%) (Auto) 78.1H, Lymphocytes (%) (Auto) 12.2L, Monocytes (%) (Auto) 8.1H, Eosinophils (%) (Auto) 1.1, Basophils (%) (Auto) 0.2, Neutrophils # (Auto) 4.8, Lymphocytes # (Auto) 0.8L, Monocytes # (Auto) 0.5, Eosinophils # (Auto) 0.1, Basophils # (Auto) 0.0, Nucleated Red Blood Cells % (auto) 0.0, Immature Platelet Fraction 3.7, Anion Gap 6L, Glomerular Filtration Rate > 60.0, Calcium Level 8.4L, Total Bilirubin 1.1H, Aspartate Amino Transf (AST/SGOT) 102H, Alanine Aminotransferase (ALT/SGPT) 42, Alkaline Phosphatase 51, Total Protein 5.5L, Albumin 2.5L, Albumin/Globulin Ratio 0.8 CBC/BMP Laboratory Tests 10/30/20 04:41 Microbiology Microbiology 10/29/20 Gram Stain - Final, Resulted 10/29/20 Sputum Culture, Resulted Pending 10/27/20 Blood Culture - Preliminary, Resulted No Growth after 48 hours. All Specime... 10/27/20 Blood Culture - Preliminary, Resulted No Growth after 48 hours. All Specime... RAYMON CARLOS MD Oct 30, 2020 10:17
[2020-10-30] MEDS: levETIRAcetam ORAL SOLUTION 500 MG/5 ML UDC PO SCH (21:21)
[2020-10-30] MEDS: dexmedeTOMidine 200 MCG in IV 1 EA IV SCH (21:24)
[2020-10-31] VITALS (8 sets, daily range): BP systolic 107–142; BP diastolic 60–92
[2020-10-31] MEDS: dexmedeTOMidine 200 MCG in IV 1 EA IV SCH (03:27)
--- NOTE | 2020-10-31 04:26 | ECGEPIP ---
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
[2020-10-31 04:52] LABS: BASO % 0.2 % (0.0-1.0); EOS % 0.6 % (0.0-3.0); HEMATOCRIT 28.8 % (42.0-52.0); HEMOGLOBIN 9.9 g/dl (13.5-17.5); LYMPH # 0.5 10^3/uL (1.5-5.0); LYMPH % 9.8 % (24.0-44.0); MEAN CORPUSCULAR HEMOGLOBIN 35.6 pg (27.0-33.0); MEAN CORPUSCULAR HGB CONC 34.4 g/dl (32.0-36.5); MEAN CORPUSCULAR VOLUME 103.6 fl (80.0-96.0); MONO # 0.6 10^3/uL (0.0-0.8); NEUTROPHILS # 3.9 10^3/uL (1.5-8.5); PLATELET COUNT, AUTOMATED 130 10^3/uL (150-450); RED BLOOD COUNT 2.78 10^6/uL (4.30-6.10)
[2020-10-31 05:14] LABS: ALBUMIN 2.6 GM/DL (3.2-5.2); ALT/SGPT 64 U/L (12-78); BILIRUBIN,TOTAL 1.3 MG/DL (0.2-1.0); BLOOD UREA NITROGEN 17 MG/DL (7-18); CALCIUM LEVEL 8.3 MG/DL (8.8-10.2); CARBON DIOXIDE LEVEL 28 MEQ/L (21-32); CHLORIDE LEVEL 109 MEQ/L (98-107); CREATININE FOR GFR 0.67 MG/DL (0.70-1.30); GLOMERULAR FILTRATION RATE > 60.0 (>49); GLUCOSE, FASTING 96 MG/DL (70-100); POTASSIUM SERUM 3.8 MEQ/L (3.5-5.1); SODIUM LEVEL 143 MEQ/L (136-145); TOTAL PROTEIN 5.6 GM/DL (6.4-8.2)
[2020-10-31] MEDS: AMPICILLIN SOD/SULBACTAM SOD 1.5 GM in D5W MINI-BAG PLUS 50 ML IV SCH (05:29)
[2020-10-31] MEDS: HEPARIN SOD (PORCINE) 5000UNITS/ML 1ML VIAL/SYRINGE SC SCH ×3 (05:31→22:00)
[2020-10-31] MEDS: CHLORHEXIDINE GLUCONATE 0.12 % 15ML UDC (PERIDEX ORAL RINSE) MT SCH (09:00)
[2020-10-31] MEDS: cefTRIAXone SOD 2 GM in D5W MINI-BAG PLUS 50 ML IV SCH (10:06)
[2020-10-31] MEDS: levETIRAcetam ORAL SOLUTION 500 MG/5 ML UDC PO SCH (10:06)
[2020-10-31] MEDS: FOLIC ACID 1 MG TAB NG SCH (10:06)
[2020-10-31] MEDS: THIAMINE 100 MG TAB NG SCH (10:06)
--- NOTE | 2020-10-31 10:35 | IPNPDOC ---
Subjective Date Seen The patient was seen on 10/31/20. Subjective Chief Complaint/HPI Patient was reported to be confused last night trying to climb out of bed. He was transiently put on Precedex drip. This morning he is claiming that he was start drinking alcohol. He denies of everything else. General: Denies: Chills Constitutional: Denies: Chills, Fever Eyes: Denies: Pain ENT: Denies: Head Aches, Sore Throat Skin: Denies: Rash Pulmonary: Denies: Dyspnea, Cough Cardiovascular: Denies: Chest Pain, Palpitations, Orthopnea Gastrointestinal: Denies: Nausea, Vomiting, Abdominal Pain, Diarrhea Neurological: Denies: Weakness, Numbness Psych: Reports: Anxiety Objective Physical Examination General Exam: Positive: No Acute Distress Eye Exam: Negative: Sclera icteric ENT Exam: Positive: Atraumatic Neck Exam: Positive: Supple; Negative: JVD Chest Exam: Positive: Clear to auscultation, Normal air movement Heart Exam: Positive: Rate Normal, Regular Rhythm, Murmurs Abdomen Exam: Positive: Normal bowel sounds, Soft; Negative: Tenderness Extremity Exam: Negative: Clubbing, Cyanosis, Edema Skin Exam: Positive: Other skin issue (Scalp laceration with kalee); Negative: Rash Neuro Exam: Positive: Other (Unable to assess) Psych Exam: Positive: Other (Unable to assess) Assessment /Plan Assessment This is a 65-year-old gentleman with past medical history of heart valve replacement, hepatitis C treated, polysubstance abuse, alcohol dependency, seizure disorder who was brought in by EMS for altered mental status and seizure. Plan/VTE VTE Prophylaxis Ordered?: Yes Plan #Acute respiratory failure secondary to inability to protect airway due to seizure -He has been extubated and saturating well on room air. He is protecting his airway. #Metabolic encephalopathy secondary to postictal state -Resolved #MITCH -resolved after IV fluid administration. #Scalp laceration from mechanical fall -Appreciate surgery intervention/kalee. #Anion gap metabolic acidosis secondary to severe lactic acidosis -This has been resolved with administration of IV fluid. #Aspiration pneumonia -Sputum culture with Enterobacter Colace. He received 2 days of Unasyn. Based on sensitivity his antibiotic was switched to ceftriaxone. To complete for to zoe of 7 days. #Alcohol intoxication -Monitor CIWA and withdrawal. Ativan as needed. Frequent reorientation. Needs extensive counseling and referral to AA or rehab on discharge. #Seizure episode with history of seizure disorder -Patient was not compliant with Keppra. Keppra 750 mg twice daily home dose was restarted on admission. The level drawn on admission is pending. #Rhabdomyolysis -From seizure activity. Resolved with IV fluid ministration. #Macrocytosis -Likely secondary to folate deficiency. Patient is receiving thiamine and folate acid supplementation. #History of the mitral heart valve repair -Records from [facility] cardiology department shows that patient had a mitral valve repair and chordae tendon repair back in 2014 in [facility]. Post operative echocardiogram show intact mitral valve with severely dilated left atrium. He was on beta-dante which you are currently being held due to hypotension #Hypokalemia-repleted #History of hepatitis C treated (treated) DVT prophylaxis: Heparin subcutaneous GI prophylaxis: Not indicated Diet: Currently on clear liquid diet but will advance. Disposition Patient is stable to be transfer to [facility] floor. VS, I&O, 24H, [facility] Vital Signs/I&O Vital Signs Date Time Temp Pulse Resp B/P (MAP) Pulse Ox O2 Delivery O2 Flow Rate FiO2 10/31/20 08:00 97.7 75 17 121/76 (91) 98 Room Air 10/30/20 08:00 30 I&O- Last 24 Hours up to 6 AM 10/31/20 06:00 Intake Total 205 ml Output Total 1215 ml Balance -1010 ml Laboratory Data 24H LABS Laboratory Tests 2 10/31/20 04:26: Immature Granulocyte % (Auto) 0.4, Neutrophils (%) (Auto) 77.0H, Lymphocytes (%) (Auto) 9.8L, Monocytes (%) (Auto) 12.0H, Eosinophils (%) (Auto) 0.6, Basophils (%) (Auto) 0.2, Neutrophils # (Auto) 3.9, Lymphocytes # (Auto) 0.5L, Monocytes # (Auto) 0.6, Eosinophils # (Auto) 0.0, Basophils # (Auto) 0.0, Nucleated Red Blood Cells % (auto) 0.0, Anion Gap 6L, Glomerular Filtration Rate > 60.0, Calcium Level 8.3L, Total Bilirubin 1.3H, Aspartate Amino Transf (AST/SGOT) 247H, Alanine Aminotransferase (ALT/SGPT) 64, Alkaline Phosphatase 47, Total Protein 5.6L, Albumin 2.6L, Albumin/Globulin Ratio 0.9 CBC/BMP Laboratory Tests 10/31/20 04:26 Microbiology Microbiology 10/29/20 Gram Stain - Final, Complete 10/29/20 Sputum Culture - Final, Complete Enterobacter Cloacae Complex Corynebacterium Species 10/27/20 Blood Culture - Preliminary, Resulted No Growth after 72 hours. All specime... 10/27/20 Blood Culture - Preliminary, Resulted No Growth after 72 hours. All specime... RAYMON CARLOS MD Oct 31, 2020 10:35
--- NOTE | 2020-10-31 15:45 | IPNPDOC ---
Subjective Date Seen The patient was seen on 10/31/20. Subjective Chief Complaint/HPI Patient is awake and alert, cooperative and pleasant. He says that he drinks 2 6 packs of beer daily but indicates this is the end and he is nt going to drink any more. He also smokes but says he is quitting. Reports no appetite. Denies any cough or phlegm. Objective Physical Examination General Exam: Positive: Alert, Cooperative, No Acute Distress Eye Exam: Negative: Sclera icteric ENT Exam: Positive: Atraumatic, Mucous membr. moist/pink, Pharynx Normal Neck Exam: Positive: Supple; Negative: JVD Chest Exam: Positive: Clear to auscultation, Normal air movement Heart Exam: Positive: Rate Normal, Regular Rhythm, Normal S1, Normal S2 Abdomen Exam: Positive: Normal bowel sounds, Soft; Negative: Tenderness Extremity Exam: Negative: Clubbing, Cyanosis, Edema Skin Exam: Positive: Other skin issue (Scalp laceration with kalee); Negative: Rash Neuro Exam: Positive: Other (Unable to assess) Assessment /Plan Assessment This is a 65-year-old gentleman with past medical history of heart valve repair, hepatitis C treated, polysubstance abuse, alcohol dependency, seizure disorder who was brought in by EMS for altered mental status and seizure. Acute respiratory failure secondary to inability to protect airway due to seizure He has been extubated 0n 10/30/20 Seizure episode with history of seizure disorder Patient was not compliant with Keppra. Keppra 750 mg twice daily home dose was restarted on admission. The level drawn on admission is pending. Metabolic encephalopathy secondary to postictal state and alcohol withdrawal improving CIWA protocol Has a sitter. Aspiration pneumonia Sputum culture with Enterobacter Cloacae Continue ceftriaxone. To complete for total of 7 days. MITCH resolved Scalp laceration from mechanical fall Appreciate surgery intervention/kalee. Anion gap metabolic acidosis secondary to severe lactic acidosis resolved Alcohol Use disorder/ with withdrawal Monitor CIWA and withdrawal. Ativan as needed. Frequent reorientation. History of the mitral heart valve repair Records from [facility] cardiology department shows that patient had a mitral valve repair and chordae tendon repair back in 2014 in [facility]. Post operative echocardiogram show intact mitral valve with severely dilated left atrium. He was on beta-dante which is currently being held due to hypotension Hypokalemia-repleted History of hepatitis C treated (treated) Plan/VTE VTE Prophylaxis Ordered?: Yes VS, I&O, 24H, Fishbone Vital Signs/I&O Vital Signs Date Time Temp Pulse Resp B/P (MAP) Pulse Ox O2 Delivery O2 Flow Rate FiO2 10/31/20 08:00 97.7 75 17 121/76 (91) 98 Room Air 10/30/20 08:00 30 I&O- Last 24 Hours up to 6 AM 10/31/20 06:00 Intake Total 205 ml Output Total 1215 ml Balance -1010 ml Laboratory Data 24H LABS Laboratory Tests 2 10/31/20 04:26: Immature Granulocyte % (Auto) 0.4, Neutrophils (%) (Auto) 77.0H, Lymphocytes (%) (Auto) 9.8L, Monocytes (%) (Auto) 12.0H, Eosinophils (%) (Auto) 0.6, Basophils (%) (Auto) 0.2, Neutrophils # (Auto) 3.9, Lymphocytes # (Auto) 0.5L, Monocytes # (Auto) 0.6, Eosinophils # (Auto) 0.0, Basophils # (Auto) 0.0, Nucleated Red Blood Cells % (auto) 0.0, Anion Gap 6L, Glomerular Filtration Rate > 60.0, Calcium Level 8.3L, Total Bilirubin 1.3H, Aspartate Amino Transf (AST/SGOT) 2 47H, Alanine Aminotransferase (ALT/SGPT) 64, Alkaline Phosphatase 47, Total Protein 5.6L, Albumin 2.6L, Albumin/Globulin Ratio 0.9 CBC/BMP Laboratory Tests 10/31/20 04:26 Microbiology Microbiology 10/29/20 Gram Stain - Final, Complete 10/29/20 Sputum Culture - Final, Complete Enterobacter Cloacae Complex Corynebacterium Species 10/27/20 Blood Culture - Preliminary, Resulted No Growth after 72 hours. All specime... 10/27/20 Blood Culture - Preliminary, Resulted No Growth after 72 hours. All specime... Libby Benitez MD Oct 31, 2020 13:36
[2020-10-31] MEDS: levETIRAcetam 250MG TABLET (KEPPRA) PO SCH (22:00)
[2020-11-01] VITALS (9 sets, daily range): BP systolic 128–155; BP diastolic 76–93; O2SAT 97
[2020-11-01] MEDS: HEPARIN SOD (PORCINE) 5000UNITS/ML 1ML VIAL/SYRINGE SC SCH ×3 (05:04→20:36)
[2020-11-01 06:40] LABS: BASO % 0.2 % (0.0-1.0); EOS % 0.8 % (0.0-3.0); HEMATOCRIT 28.7 % (42.0-52.0); HEMOGLOBIN 10.2 g/dl (13.5-17.5); LYMPH # 0.6 10^3/uL (1.5-5.0); MEAN CORPUSCULAR HEMOGLOBIN 35.9 pg (27.0-33.0); MEAN CORPUSCULAR HGB CONC 35.5 g/dl (32.0-36.5); MEAN CORPUSCULAR VOLUME 101.1 fl (80.0-96.0); MONO # 0.8 10^3/uL (0.0-0.8); MONO % 16.6 % (2.0-8.0); NEUTROPHILS # 3.3 10^3/uL (1.5-8.5); PLATELET COUNT, AUTOMATED 162 10^3/uL (150-450); RED BLOOD COUNT 2.84 10^6/uL (4.30-6.10); WHITE BLOOD COUNT 4.8 10^3/uL (4.0-10.0)
[2020-11-01 07:13] LABS: ALBUMIN 2.7 GM/DL (3.2-5.2); ALT/SGPT 89 U/L (12-78); BILIRUBIN,TOTAL 1.1 MG/DL (0.2-1.0); BLOOD UREA NITROGEN 15 MG/DL (7-18); CALCIUM LEVEL 8.6 MG/DL (8.8-10.2); CARBON DIOXIDE LEVEL 26 MEQ/L (21-32); CHLORIDE LEVEL 105 MEQ/L (98-107); CREATININE FOR GFR 0.58 MG/DL (0.70-1.30); GLOMERULAR FILTRATION RATE > 60.0 (>49); GLUCOSE, FASTING 104 MG/DL (70-100); POTASSIUM SERUM 3.2 MEQ/L (3.5-5.1); SODIUM LEVEL 140 MEQ/L (136-145); TOTAL PROTEIN 5.7 GM/DL (6.4-8.2)
[2020-11-01] MEDS: THIAMINE 100 MG TAB NG SCH (09:49)
[2020-11-01] MEDS: FOLIC ACID 1 MG TAB NG SCH (09:49)
[2020-11-01] MEDS: levETIRAcetam 250MG TABLET (KEPPRA) PO SCH ×2 (09:49→20:36)
[2020-11-01] MEDS: cefTRIAXone SOD 2 GM in D5W MINI-BAG PLUS 50 ML IV SCH (09:50)
--- NOTE | 2020-11-01 11:48 | IPNPDOC ---
Subjective Date Seen The patient was seen on 11/01/20. Subjective Chief Complaint/HPI Patient seen and examined at bedside. This a.m. he was alert oriented x3 and conversing normally he was feeling okay to go home. Later in the morning about 2 hours later and care of you he was noted to be sitting up on the side of the bed and leaning forward to brain picker something from the floor so nurses were alerted when they went to check on him he was staring blankly was not talking though he was able to be redirected and followed commands but would not answer questions would not talk. I immediately went to the bedside he was following commands. He was able to move all his 4 extremities and hold them up against gravity. There was no facial asymmetry noted. Initially he was tachycardic to 120s. his other vitals were normal he was awake and tracking and initially was not speaking then he started saying 1 or 2 words and some mumbling and then suddenly started speaking clearly again. Whole episode lasted for about 20 minutes. He then said that food fell on the floor and he was trying to brain picker. He did not fall or hit his head or injure himself. I feel the this may have been seizure episode. Objective Physical Examination General Exam: Positive: Alert, Cooperative, No Acute Distress Eye Exam: Negative: Sclera icteric ENT Exam: Positive: Atraumatic, Mucous membr. moist/pink, Pharynx Normal Neck Exam: Positive: Supple; Negative: JVD Chest Exam: Positive: Clear to auscultation, Normal air movement Heart Exam: Positive: Rate Normal, Regular Rhythm, Normal S1, Normal S2 Abdomen Exam: Positive: Normal bowel sounds, Soft; Negative: Tenderness Extremity Exam: Negative: Clubbing, Cyanosis, Edema Skin Exam: Positive: Other skin issue (Scalp laceration with shari); Negative: Rash Neuro Exam: Positive: Other (Unable to assess) Assessment /Plan Assessment This is a 65-year-old gentleman with past medical history of heart valve repair, hepatitis C treated, polysubstance abuse, alcohol dependency, seizure disorder who was brought in by EMS for altered mental status and seizure. Acute respiratory failure secondary to inability to protect airway due to seizure He has been extubated 0n 10/30/20 Seizure episode with history of seizure disorder Patient was not compliant with Keppra. Keppra 750 mg twice daily home dose was restarted on admission. The level drawn on admission is pending. Likely had another seizure episode without any tonic-clonic features on 11/01/2020 Metabolic encephalopathy secondary to postictal state and alcohol withdrawal Improved CIWA protocol Sitter if needed Aspiration pneumonia Sputum culture with Enterobacter Cloacae Continue ceftriaxone. To complete for total of 7 days of antibiotics MITCH resolved Scalp laceration from mechanical fall Appreciate surgery intervention/shari. Shari to be removed in 10 days Anion gap metabolic acidosis secondary to severe lactic acidosis resolved Alcohol Use disorder/ with withdrawal Monitor CIWA and withdrawal. Ativan as needed. Frequent reorientation. History of the mitral heart valve repair Records from [facility] cardiology department shows that patient had a mitral valve repair and chordae tendon repair back in 2014 in [facility]. Post operative echocardiogram show intact mitral valve with severely dilated left atrium. He was on beta-dante which is currently being held due to hypotension. Will resume beta-dante when blood pressure improves Hypokalemia-repleted History of hepatitis C treated (treated) Plan/VTE VTE Prophylaxis Ordered?: Yes VS, I&O, 24H, [facility] Vital Signs/I&O Vital Signs Date Time Temp Pulse Resp B/P (MAP) Pulse Ox O2 Delivery O2 Flow Rate FiO2 11/01/20 06:00 98.3 97 18 128/81 (97) 97 Room Air 10/30/20 08:00 30 I&O- Last 24 Hours up to 6 AM 11/01/20 06:00 Intake Total 685.5 ml Output Total 350 ml Balance 335.5 ml Laboratory Data 24H LABS Laboratory Tests 2 11/01/20 06:21: Immature Granulocyte % (Auto) 0.4, Neutrophils (%) (Auto) 70.0H, Lymphocytes (%) (Auto) 12.0L, Monocytes (%) (Auto) 16.6H, Eosinophils (%) (Auto) 0.8, Basophils (%) (Auto) 0.2, Neutrophils # (Auto) 3.3, Lymphocytes # (Auto) 0.6L, Monocytes # (Auto) 0.8, Eosinophils # (Auto) 0.0, Basophils # (Auto) 0.0, Nucleated Red Blood Cells % (auto) 0.0, Anion Gap 9, Glomerular Filtration Rate > 60.0, Calcium Level 8.6L, Total Bilirubin 1.1H, Aspartate Amino Transf (AST/SGOT) 275H, Alanine Aminotransferase (ALT/SGPT) 89H, Alkaline Phosphatase 47, Total Protein 5.7L, Albumin 2.7L, Albumin/Globulin Ratio 0.9 11/01/20 09:31: Bedside Glucose (Misc Panel) 131H CBC/BMP Laboratory Tests 11/01/20 06:21 Microbiology Microbiology 10/29/20 Gram Stain - Final, Complete 10/29/20 Sputum Culture - Final, Complete Enterobacter Cloacae Complex Corynebacterium Species 10/27/20 Blood Culture - Preliminary, Resulted No Growth after 72 hours. All specime... 10/27/20 Blood Culture - Preliminary, Resulted No Growth after 72 hours. All specime... Libby Benitez MD Nov 01, 2020 11:48
[2020-11-01] MEDS ORDERED: LORazepam 2 MG/ML VIAL IV ONE (13:05)
[2020-11-01] MEDS ORDERED: OXAZEPAM 10 MG CAP PO SCH ×2 (13:30→21:00)
--- NOTE | 2020-11-01 14:36 | REP ---
INDICATION: AMS, not talking intermittent episodes.. COMPARISON: 10/27/2020. TECHNIQUE: CT brain performed in the axial plane. Coronal reconstruction images are performed. FINDINGS: There is again mild atrophy. There is no midline shift or mass effect. There are stable chronic periventricular small vessel ischemic changes. There is no acute intracranial hemorrhage. There is no extra-axial fluid collection. Vascular calcifications are again seen in the carotid siphons. The visualized paranasal sinuses demonstrate no abnormal opacification. There is partial opacification of right mastoid air cells unchanged. IMPRESSION: Stable exam. No evidence of acute intracranial hemorrhage, midline shift or mass effect. <Electronically signed by Ildefonso Giles > 11/01/20 [id number]
[2020-11-01] MEDS ORDERED: POTASSIUM CHLORIDE 10MEQ SR TABLET PO ONE (16:45)
[2020-11-01] MEDS ORDERED: OXAZEPAM 15 MG CAP PO ONE (18:25)
[2020-11-01] MEDS ORDERED: OLANZapine 5 MG TAB PO PRN (22:25)
[2020-11-01] MEDS ORDERED: LORazepam 2 MG/ML VIAL IV STA (22:27)
[2020-11-02] VITALS (63 sets, daily range): BP systolic 69–175; BP diastolic 40–98
[2020-11-02] MEDS ORDERED: LORazepam 2 MG/ML VIAL IV PRN (01:15)
[2020-11-02] MEDS ORDERED: dexmedeTOMidine 200 MCG in IV 1 EA IV SCH (01:35)
[2020-11-02] MEDS ORDERED: LORazepam 2 MG/ML VIAL IV STA ×2 (01:35→15:26)
[2020-11-02] MEDS ORDERED: NS 1,000 ML IV SCH (01:55)
--- NOTE | 2020-11-02 01:58 | IPNPDOC ---
Text Note Date of Service The patient was seen on 11/02/20. NOTE CODE 25 was called because the patient was agitated, fighting with staff and trying to escape from his room. Prior to the code he receive 2mg of IV ativan, 2mg of PO ativan and olanzapine. Per d/w his RN his CIWA score was approximately 22. #metabolic encephalopathy / alcohol w/d We transferred him to ICU and start Precedex drip. #tachycardia IVF / EKG / troponin LATE ENTRY #Hypotension Likely 2/2 meds Per d/w the patient's RN Juan the patient fell asleep while on the Precedex drip and shortly thereafter his MAP dropped to the 50s; the patient also vomited. The trop was 0.08 and the EKG didn't show ST elevation Plan: wean off the drip Precedex drip as tolerated, & administer 2L of IVF / f/u chest xray. #QTC prolongation 480 Plan: f/u repeat EKG tomorrow VS,Flexe, I+O VS, Lokibone, I+O Laboratory Tests 11/01/20 06:21 Vital Signs Date Time Temp Pulse Resp B/P (MAP) Pulse Ox O2 Delivery O2 Flow Rate FiO2 11/02/20 01:15 142 141/98 (112) Room Air 11/01/20 14:00 97.7 18 95 10/30/20 08:00 30 I&O- Last 24 Hours up to 6 AM 11/02/20 06:00 Intake Total 660 ml Output Total 100 ml Balance 560 ml ISHMAEL OLIVEIRA MD Nov 02, 2020 01:58
[2020-11-02] MEDS: NICOTINE 14 MG/24 HR TRANSDERMAL TD SCH ×2 (02:50→21:18)
[2020-11-02 05:08] LABS: BASO % 0.1 % (0.0-1.0); EOS % 0.1 % (0.0-3.0); HEMATOCRIT 30.1 % (42.0-52.0); HEMOGLOBIN 10.5 g/dl (13.5-17.5); LYMPH # 0.8 10^3/uL (1.5-5.0); LYMPH % 11.4 % (24.0-44.0); MEAN CORPUSCULAR HEMOGLOBIN 35.8 pg (27.0-33.0); MEAN CORPUSCULAR HGB CONC 34.9 g/dl (32.0-36.5); MEAN CORPUSCULAR VOLUME 102.7 fl (80.0-96.0); MONO # 1.3 10^3/uL (0.0-0.8); MONO % 18.4 % (2.0-8.0); NEUTROPHILS # 4.7 10^3/uL (1.5-8.5); NEUTROPHILS % 69.7 % (36.0-66.0); PLATELET COUNT, AUTOMATED 206 10^3/uL (150-450); RED BLOOD COUNT 2.93 10^6/uL (4.30-6.10); WHITE BLOOD COUNT 6.8 10^3/uL (4.0-10.0)
[2020-11-02 05:21] LABS: BLOOD UREA NITROGEN 14 MG/DL (7-18); CALCIUM LEVEL 8.9 MG/DL (8.8-10.2); CARBON DIOXIDE LEVEL 29 MEQ/L (21-32); CHLORIDE LEVEL 108 MEQ/L (98-107); CREATININE FOR GFR 0.73 MG/DL (0.70-1.30); GLOMERULAR FILTRATION RATE > 60.0 (>49); GLUCOSE, FASTING 85 MG/DL (70-100); POTASSIUM SERUM 3.5 MEQ/L (3.5-5.1); SODIUM LEVEL 144 MEQ/L (136-145)
[2020-11-02] MEDS ORDERED: NS 1,000 ML IV ONE ×2 (05:50→06:15)
[2020-11-02] MEDS: HEPARIN SOD (PORCINE) 5000UNITS/ML 1ML VIAL/SYRINGE SC SCH ×3 (06:53→21:18)
--- NOTE | 2020-11-02 08:14 | REPVR ---
PROCEDURE INFORMATION: Exam: XR Chest Exam date and time: 11/02/2020 6:34 AM Age: 65 years old Clinical indication: Other: Vomit/suspect aspiration pna; Additional info: Vomiting / suspect aspiration pna TECHNIQUE: Imaging protocol: XR of the chest. Views: 1 view. COMPARISON: CR PORTABLE CHEST X-RAY 10/28/2020 8:37 AM FINDINGS: Tubes, catheters and devices: Left-sided central line just into the SVC as before. Monitoring leads. Interval removal of the endotracheal tube and enteric tube. Lungs: Lungs are hyperinflated with mild prominence of markings but no dense consolidation. Few calcified granulomatous nodes in the chest. Pleural spaces: Apical pleural thickening without pneumothorax or effusion. Heart/Mediastinum: See "Vasculature" finding. Vasculature: Stable cardiomediastinal silhouette and ectatic aorta. Bones/joints: Sternotomy wires. Degenerative changes and osteopenia without acute fracture. IMPRESSION: Interstitial coarsening and hyperinflation. Interval extubation. No focal infiltrate. Follow-up recommended. Electronically signed by: Claus Ag On 11/02/2020 08:13:49 AM
[2020-11-02] MEDS: cefTRIAXone SOD 2 GM in D5W MINI-BAG PLUS 50 ML IV SCH (09:11)
[2020-11-02] MEDS: levETIRAcetam 250MG TABLET (KEPPRA) PO SCH ×2 (09:11→21:17)
[2020-11-02] MEDS: THIAMINE 100 MG TAB NG SCH (09:11)
[2020-11-02] MEDS: LORazepam 2 MG TAB PO PRN ×2 (09:53→14:39)
[2020-11-02] MEDS: OXAZEPAM 15 MG CAP PO SCH ×3 (11:55→23:31)
[2020-11-02] MEDS: MULTIVITAMIN -ADULT INJECTION 10 ML, THIAMINE INJection 100 MG, FOLIC ACID 1 MG in NS 1... IV SCH (11:55)
--- NOTE | 2020-11-02 13:17 | IPNPDOC ---
Subjective Date Seen The patient was seen on 11/02/20. Subjective Chief Complaint/HPI Patient is undergoing through alcohol withdrawal. He has been intermittently agitated trying to get out of bed combative overnight. He was put on Precedex and then we successfully weaned him off in the morning. Objective Physical Examination General Exam: Positive: Alert, No Acute Distress, Other (Intermittently confused and combative.) Eye Exam: Negative: Sclera icteric ENT Exam: Positive: Atraumatic, Mucous membr. moist/pink, Pharynx Normal Neck Exam: Positive: Supple; Negative: JVD Chest Exam: Positive: Clear to auscultation, Normal air movement Heart Exam: Positive: Tachycardic, Regular Rhythm, Normal S1, Normal S2 Abdomen Exam: Positive: Normal bowel sounds, Soft; Negative: Tenderness Extremity Exam: Negative: Clubbing, Cyanosis, Edema Skin Exam: Positive: Other skin issue (Scalp laceration with kalee); Negative: Rash Neuro Exam: Positive: Other (Unable to assess) Psych Exam: Positive: Oriented x 3 Assessment /Plan Assessment This is a 65-year-old gentleman with past medical history of heart valve repair, hepatitis C treated, polysubstance abuse, alcohol dependency, seizure disorder who was brought in by EMS for altered mental status and seizure. Alcohol use disorder/alcohol withdrawal Patient is at present going through withdrawals Was again put on Precedex last night however we have been able to wean him off Precedex We will continue with Serax every 6 hours and Ativan as needed Continue CIWA protocol Will give banana bag 1 daily Acute metabolic encephalopathy Initially due to seizure now due to alcohol withdrawal Sitter as needed Acute respiratory failure resolved secondary to inability to protect airway due to seizure He has been extubated 0n 10/30/20 Seizure episode with history of seizure disorder Patient was not compliant with Keppra. Keppra 750 mg twice daily home dose was restarted on admission. The level drawn on admission is pending. Likely had another seizure episode without any tonic-clonic features on 11/01/2020 Aspiration pneumonia Sputum culture with Enterobacter Cloacae Continue ceftriaxone. To complete for total of 7 days of antibiotics MITCH resolved Scalp laceration from mechanical fall Appreciate surgery intervention/kalee. [place] to be removed in 10 days Anion gap metabolic acidosis secondary to severe lactic acidosis resolved History of the mitral heart valve repair Records from [facility] cardiology department shows that patient had a mitral valve repair and chordae tendon repair back in 2014 in [facility]. Post operative echocardiogram show intact mitral valve with severely dilated left atrium. He was on beta-dante which is currently being held due to hypotension. Will resume beta-dante when blood pressure improves Hypokalemia-repleted History of hepatitis C treated (treated) Plan/VTE VTE Prophylaxis Ordered?: Yes VS, I&O, 24H, Fishbone Vital Signs/I&O Vital Signs Date Time Temp Pulse Resp B/P (MAP) Pulse Ox O2 Delivery O2 Flow Rate FiO2 11/02/20 09:30 108 115/80 (92) 11/02/20 09:15 99 Room Air 11/02/20 08:01 99.7 22 10/30/20 08:00 30 I&O- Last 24 Hours up to 6 AM 11/02/20 06:00 Intake Total 1230 ml Output Total 300 ml Balance 930 ml Laboratory Data 24H LABS Laboratory Tests 2 11/02/20 02:18: Bedside Glucose (Misc Panel) 103 11/02/20 04:50: Immature Granulocyte % (Auto) 0.3, Neutrophils (%) (Auto) 69.7H, Lymphocytes (%) (Auto) 11.4L, Monocytes (%) (Auto) 18.4H, Eosinophils (%) (Auto) 0.1, Basophils (%) (Auto) 0.1, Neutrophils # (Auto) 4.7, Lymphocytes # (Auto) 0.8L, Monocytes # (Auto) 1.3H, Eosinophils # (Auto) 0.0, Basophils # (Auto) 0.0, Nucleated Red Blood Cells % (auto) 0.0, Anion Gap 7L, Glomerular Filtration Rate > 60.0, Calcium Level 8.9, Troponin I 0.08 11/02/20 11:53: Troponin I 0.08 CBC/BMP Laboratory Tests 11/02/20 04:50 Microbiology Microbiology 10/29/20 Gram Stain - Final, Complete 10/29/20 Sputum Culture - Final, Complete Enterobacter Cloacae Complex Corynebacterium Species 10/27/20 Blood Culture - Final, Complete NO GROWTH AFTER 5 DAYS 10/27/20 Blood Culture - Final, Complete NO GROWTH AFTER 5 DAYS Libby Benitez MD Nov 02, 2020 13:17
[2020-11-02] MEDS ORDERED: HALOPERIDOL 5MG/ML VIAL (J1630 PER 1) IV PRN (14:45)
[2020-11-02] MEDS: LORazepam 2 MG/ML VIAL IV PRN ×2 (15:03→22:37)
[2020-11-02] MEDS ORDERED: diphenhydrAMINE 50MG/ML VIAL (J1200) IV STA (15:42)
--- NOTE | 2020-11-02 16:26 | IPNPDOC ---
Text Note Date of Service The patient was seen on 11/02/20. NOTE On going Alcohol withdrawal. Unable to be managed with po and iv benzos, iv h aldol, will have to put back on precedex. Will transfer back to ICU. VS,Fishbone, I+O VS, Fishbone, I+O Laboratory Tests 11/02/20 04:50 Vital Signs Date Time Temp Pulse Resp B/P (MAP) Pulse Ox O2 Delivery O2 Flow Rate FiO2 11/02/20 09:30 108 115/80 (92) 11/02/20 09:15 99 Room Air 11/02/20 08:01 99.7 22 10/30/20 08:00 30 I&O- Last 24 Hours up to 6 AM 11/02/20 06:00 Intake Total 1230 ml Output Total 300 ml Balance 930 ml Libby Benitez MD Nov 02, 2020 16:26
[2020-11-02] MEDS: dexmedeTOMidine 200 MCG in IV 1 EA IV SCH ×2 (16:59→21:46)
[2020-11-03] VITALS (28 sets, daily range): BP systolic 82–144; BP diastolic 51–76
--- NOTE | 2020-11-03 00:28 | ECGEPIP ---
[facility] Test Date: 2020-11-02 Pat Name: VANDA MARES Department: Room: [place] [address] Gender: Male Institutional Custodian: zeinab : 1955 Requested By: ISHMAEL OLIVEIRA Order Number: [id number] Reading MD: Kwadwo Clinton Measurements Intervals [place] Rate: 87 P: 64 ND: 184 QRS: 68 QRSD: 86 T: 67 QT: 400 QTc: 481 Interpretive Statements Normal sinus rhythm Last tracing on 10/27/20 at 18:06, a narrow complex tachycardia was noted Electronically Signed on 11-03-2020 0:27:55 EDT by Kwadwo Clinton
[2020-11-03] MEDS ORDERED: NS 1,000 ML IV ONE (01:15)
[2020-11-03] MEDS: dexmedeTOMidine 200 MCG in IV 1 EA IV SCH ×2 (04:38→18:10)
[2020-11-03] MEDS: OXAZEPAM 15 MG CAP PO SCH ×3 (05:50→18:07)
[2020-11-03] MEDS: HEPARIN SOD (PORCINE) 5000UNITS/ML 1ML VIAL/SYRINGE SC SCH ×3 (05:50→22:13)
[2020-11-03 06:14] LABS: BASO % 0.4 % (0.0-1.0); EOS # 0.1 10^3/uL (0.0-0.5); EOS % 1.4 % (0.0-3.0); HEMATOCRIT 28.4 % (42.0-52.0); HEMOGLOBIN 9.6 g/dl (13.5-17.5); LYMPH # 1.1 10^3/uL (1.5-5.0); LYMPH % 19.6 % (24.0-44.0); MEAN CORPUSCULAR HEMOGLOBIN 35.4 pg (27.0-33.0); MEAN CORPUSCULAR HGB CONC 33.8 g/dl (32.0-36.5); MEAN CORPUSCULAR VOLUME 104.8 fl (80.0-96.0); MONO # 0.8 10^3/uL (0.0-0.8); MONO % 14.9 % (2.0-8.0); NEUTROPHILS # 3.5 10^3/uL (1.5-8.5); NEUTROPHILS % 63.3 % (36.0-66.0); PLATELET COUNT, AUTOMATED 213 10^3/uL (150-450); RED BLOOD COUNT 2.71 10^6/uL (4.30-6.10); WHITE BLOOD COUNT 5.6 10^3/uL (4.0-10.0)
[2020-11-03 06:39] LABS: BLOOD UREA NITROGEN 11 MG/DL (7-18); CALCIUM LEVEL 8.1 MG/DL (8.8-10.2); CARBON DIOXIDE LEVEL 26 MEQ/L (21-32); CHLORIDE LEVEL 112 MEQ/L (98-107); CREATININE FOR GFR 0.54 MG/DL (0.70-1.30); GLOMERULAR FILTRATION RATE > 60.0 (>49); GLUCOSE, FASTING 60 MG/DL (70-100); POTASSIUM SERUM 3.5 MEQ/L (3.5-5.1); SODIUM LEVEL 147 MEQ/L (136-145)
[2020-11-03] MEDS: levETIRAcetam 250MG TABLET (KEPPRA) PO SCH ×2 (08:12→20:46)
[2020-11-03] MEDS: cefTRIAXone SOD 2 GM in D5W MINI-BAG PLUS 50 ML IV SCH (08:12)
[2020-11-03] MEDS: THIAMINE 100 MG TAB NG SCH (08:12)
--- NOTE | 2020-11-03 11:00 | IPNPDOC ---
Subjective Date Seen The patient was seen on 11/03/20. Subjective Chief Complaint/HPI Better this morning with the Precedex. He is very sensitive to Precedex and requiring only minimal dose. But he is alert oriented calm and cooperative. He was asking to go home however seem to understand that he is going through withdrawal and he needs to stay for 3 few more days. Objective Physical Examination General Exam: Positive: Alert, Cooperative, No Acute Distress, Other (Calm and cooperative this morning) Eye Exam: Negative: Sclera icteric ENT Exam: Positive: Atraumatic, Mucous membr. moist/pink, Pharynx Normal Neck Exam: Positive: Supple; Negative: JVD Chest Exam: Positive: Clear to auscultation, Normal air movement Heart Exam: Positive: Tachycardic, Regular Rhythm, Normal S1, Normal S2 Abdomen Exam: Positive: Normal bowel sounds, Soft; Negative: Tenderness Extremity Exam: Negative: Clubbing, Cyanosis, Edema Skin Exam: Positive: Other skin issue (Scalp laceration with shari, large bruising on the left hip and buttock. Bruising on the left side of the leg.); Negative: Rash Neuro Exam: Positive: Other (Unable to assess) Psych Exam: Positive: Oriented x 3 Assessment /Plan Assessment This is a 65-year-old gentleman with past medical history of heart valve repair, hepatitis C treated, polysubstance abuse, alcohol dependency, seizure disorder who was brought in by EMS for altered mental status and seizure. Alcohol use disorder/alcohol withdrawal Patient is at present going through withdrawals Continue Precedex today and will try to take him off overnight. We will continue with Serax every 6 hours and Ativan as needed Continue CIWA protocol Will give banana bag 1 daily Acute metabolic encephalopathy Initially due to seizure now due to alcohol withdrawal Sitter as needed Acute respiratory failure resolved secondary to inability to protect airway due to seizure He has been extubated 0n 10/30/20 Seizure episode with history of seizure disorder Patient was not compliant with Keppra. Keppra 750 mg twice daily home dose was restarted on admission. The level drawn on admission is pending. Likely had another seizure episode without any tonic-clonic features on 11/01/2020 Aspiration pneumonia Sputum culture with Enterobacter Cloacae Continue ceftriaxone. To complete for total of 7 days of antibiotics MITCH resolved Scalp laceration from mechanical fall Appreciate surgery intervention/shari. Shari to be removed in 10 days Anion gap metabolic acidosis secondary to severe lactic acidosis resolved History of the mitral heart valve repair Records from [facility] cardiology department shows that patient had a mitral valve repair and chordae tendon repair back in 2014 in [facility]. Post operative echocardiogram show intact mitral valve with severely dilated left atrium. He was on beta-dante which is currently being held due to hypotension. Will resume beta-dante when blood pressure improves Hypokalemia-repleted History of hepatitis C treated (treated) Plan/VTE VTE Prophylaxis Ordered?: Yes VS, I&O, 24H, Fishbone Vital Signs/I&O Vital Signs Date Time Temp Pulse Resp B/P (MAP) Pulse Ox O2 Delivery O2 Flow Rate FiO2 11/03/20 08:00 86 99/60 11/03/20 02:15 98 Nasal Cannula 2.0 11/03/20 02:00 24 11/03/20 00:00 97.5 10/30/20 08:00 30 I&O- Last 24 Hours up to 6 AM 11/03/20 05:59 Intake Total 5311.6 ml Output Total 1705 ml Balance 3606.6 ml Laboratory Data 24H LABS Laboratory Tests 2 11/02/20 11:53: Troponin I 0.08 11/03/20 05:04: Immature Granulocyte % (Auto) 0.4, Neutrophils (%) (Auto) 63.3, Lymphocytes (%) (Auto) 19.6L, Monocytes (%) (Auto) 14.9H, Eosinophils (%) (Auto) 1.4, Basophils (%) (Auto) 0.4, Neutrophils # (Auto) 3.5, Lymphocytes # (Auto) 1.1L, Monocytes # (Auto) 0.8, Eosinophils # (Auto) 0.1, Basophils # (Auto) 0.0, Nucleated Red Blood Cells % (auto) 0.0, Anion Gap 9, Glomerular Filtration Rate > 60.0, Calcium Level 8.1L CBC/BMP Laboratory Tests 11/03/20 05:04 Microbiology Microbiology 10/29/20 Gram Stain - Final, Complete 10/29/20 Sputum Culture - Final, Complete Enterobacter Cloacae Complex Corynebacterium Species 10/27/20 Blood Culture - Final, Complete NO GROWTH AFTER 5 DAYS 10/27/20 Blood Culture - Final, Complete NO GROWTH AFTER 5 DAYS Libby Benitez MD Nov 03, 2020 11:00
[2020-11-03] MEDS: MULTIVITAMIN -ADULT INJECTION 10 ML, THIAMINE INJection 100 MG, FOLIC ACID 1 MG in NS 1... IV SCH (11:14)
--- NOTE | 2020-11-03 16:57 | ECGEPIP ---
[facility] Test Date: 2020-11-03 Pat Name: VANDA MARES Department: Room: [place] [address] Gender: Male Pheresis Nurse: kirk : 1955 Requested By: IHSMAEL OLIVEIRA Order Number: [id number] Reading MD: Abhay Fan Measurements Intervals [place] Rate: 96 P: 33 OR: 174 QRS: 39 QRSD: 86 T: 52 QT: 392 QTc: 495 Interpretive Statements Sinus rhythm with Frequent premature supraventricular complexes Electronically Signed on 11-03-2020 16:57:23 EDT by Abhay Fan
[2020-11-03] MEDS: NICOTINE 14 MG/24 HR TRANSDERMAL TD SCH (20:52)
[2020-11-04] VITALS (20 sets, daily range): BP systolic 86–145; BP diastolic 53–77; O2SAT 89–96
[2020-11-04] MEDS: OXAZEPAM 15 MG CAP PO SCH ×2 (00:18→05:54)
[2020-11-04 03:29] LABS: BASO % 0.4 % (0.0-1.0); EOS # 0.1 10^3/uL (0.0-0.5); EOS % 2.3 % (0.0-3.0); HEMATOCRIT 26.3 % (42.0-52.0); HEMOGLOBIN 9.2 g/dl (13.5-17.5); LYMPH # 1.1 10^3/uL (1.5-5.0); LYMPH % 21.6 % (24.0-44.0); MEAN CORPUSCULAR HEMOGLOBIN 35.8 pg (27.0-33.0); MEAN CORPUSCULAR VOLUME 102.3 fl (80.0-96.0); MONO # 0.7 10^3/uL (0.0-0.8); NEUTROPHILS # 3.2 10^3/uL (1.5-8.5); NEUTROPHILS % 61.3 % (36.0-66.0); PLATELET COUNT, AUTOMATED 250 10^3/uL (150-450); RED BLOOD COUNT 2.57 10^6/uL (4.30-6.10); WHITE BLOOD COUNT 5.3 10^3/uL (4.0-10.0)
[2020-11-04 04:30] LABS: BLOOD UREA NITROGEN 9 MG/DL (7-18); CALCIUM LEVEL 8.1 MG/DL (8.8-10.2); CARBON DIOXIDE LEVEL 26 MEQ/L (21-32); CHLORIDE LEVEL 110 MEQ/L (98-107); CREATININE FOR GFR 0.45 MG/DL (0.70-1.30); GLOMERULAR FILTRATION RATE > 60.0 (>49); GLUCOSE, FASTING 80 MG/DL (70-100); POTASSIUM SERUM 2.8 MEQ/L (3.5-5.1); SODIUM LEVEL 143 MEQ/L (136-145)
[2020-11-04] MEDS ORDERED: POTASSIUM CHLORIDE 10MEQ SR TABLET PO ONE ×2 (04:35→21:45)
[2020-11-04] MEDS: dexmedeTOMidine 200 MCG in IV 1 EA IV SCH (05:57)
[2020-11-04] MEDS: KCL 10MEQ/100ML SWI (KRUN) 10 MEQ in IV 1 EA IV SCH ×2 (06:00→08:44)
--- NOTE | 2020-11-04 08:34 | REP ---
INDICATION: cough. COMPARISON: 11/02/2020. TECHNIQUE: Single portable AP view of the chest was performed. FINDINGS: Bilateral interstitial prominence is unchanged. No new infiltrate is seen. The heart is normal in size. There is atherosclerotic calcification of the thoracic aorta. The mediastinal silhouette is unchanged. Multiple sternal wires are present. Left central venous catheter has been removed. IMPRESSION: Removal of left central venous catheter. Otherwise no change. <Electronically signed by Ildefonso Giles > 11/04/20 1555
[2020-11-04] MEDS: levETIRAcetam 250MG TABLET (KEPPRA) PO SCH ×2 (09:17→20:38)
[2020-11-04] MEDS: cefTRIAXone SOD 2 GM in D5W MINI-BAG PLUS 50 ML IV SCH (09:17)
[2020-11-04] MEDS: THIAMINE 100 MG TAB NG SCH (09:17)
--- NOTE | 2020-11-04 10:41 | IPNPDOC ---
Subjective Date Seen The patient was seen on 11/04/20. Subjective Chief Complaint/HPI Calm and cooperative this am. Remains on minimal precedex. Will discontinue precedex and increase serax. Objective Physical Examination General Exam: Positive: Alert, Cooperative, No Acute Distress, Other (Calm and cooperative this morning) Eye Exam: Positive: Conjunctiva & lids normal; Negative: Sclera icteric ENT Exam: Positive: Atraumatic, Mucous membr. moist/pink, Pharynx Normal Neck Exam: Positive: Supple; Negative: JVD Chest Exam: Positive: Clear to auscultation, Normal air movement Heart Exam: Positive: Tachycardic, Regular Rhythm, Normal S1, Normal S2 Abdomen Exam: Positive: Normal bowel sounds, Soft; Negative: Tenderness Extremity Exam: Negative: Clubbing, Cyanosis, Edema Skin Exam: Positive: Other skin issue (Scalp laceration with shari, large bruising on the left hip and buttock. Bruising on the left side of the leg.); Negative: Rash Neuro Exam: Positive: Other (Unable to assess) Psych Exam: Positive: Oriented x 3 Assessment /Plan Assessment This is a 65-year-old gentleman with past medical history of heart valve repair, hepatitis C treated, polysubstance abuse, alcohol dependency, seizure disorder who was brought in by EMS for altered mental status and seizure. Alcohol use disorder/alcohol withdrawal Patient is at present going through withdrawals We will continue with Serax every 6 hours and Ativan as needed Will give banana bag 1 daily ativan q 4 hours prn. will discontinue precedex will restart metoprolol Acute metabolic encephalopathy Initially due to seizure now due to alcohol withdrawal Sitter as needed Acute respiratory failure resolved secondary to inability to protect airway due to seizure He has been extubated 0n 10/30/20 Seizure episode with history of seizure disorder Patient was not compliant with Keppra. Keppra 750 mg twice daily home dose was restarted on admission. The level drawn on admission is pending. Likely had another seizure episode without any tonic-clonic features on 11/01/2020 Aspiration pneumonia Sputum culture with Enterobacter Cloacae Continue ceftriaxone. To complete for total of 7 days of antibiotics MITCH resolved Scalp laceration from mechanical fall Appreciate surgery intervention/shari. Shari to be removed in 10 days Anion gap metabolic acidosis secondary to severe lactic acidosis resolved History of the mitral heart valve repair Records from [facility] cardiology department shows that patient had a mitral valve repair and chordae tendon repair back in 2014 in [facility]. Post operative echocardiogram show intact mitral valve with severely dilated left atrium. He was on beta-dante which is currently being held due to hyp otension. Will resume beta-dante when blood pressure improves Hypokalemia-repleted History of hepatitis C treated (treated) Plan/VTE VTE Prophylaxis Ordered?: Yes VS, I&O, 24H, Fishbone Vital Signs/I&O Vital Signs Date Time Temp Pulse Resp B/P (MAP) Pulse Ox O2 Delivery O2 Flow Rate FiO2 11/04/20 06:00 97 145/68 (93) 92 11/04/20 04:00 2.0 11/04/20 04:00 98.0 Nasal Cannula 11/04/20 00:00 27 10/30/20 08:00 30 I&O- Last 24 Hours up to 6 AM 11/04/20 05:59 Intake Total 1066.9 ml Output Total 1480 ml Balance -413.1 ml Laboratory Data 24H LABS Laboratory Tests 2 11/04/20 02:45: Immature Granulocyte % (Auto) 0.4, Neutrophils (%) (Auto) 61.3, Lymphocytes (%) (Auto) 21.6L, Monocytes (%) (Auto) 14.0H, Eosinophils (%) (Auto) 2.3, Basophils (%) (Auto) 0.4, Neutrophils # (Auto) 3.2, Lymphocytes # (Auto) 1.1L, Monocytes # (Auto) 0.7, Eosinophils # (Auto) 0.1, Basophils # (Auto) 0.0, Nucleated Red Blood Cells % (auto) 0.4H, Anion Gap 7L, Glomerular Filtration Rate > 60.0, Calcium Level 8.1L CBC/BMP Laboratory Tests 11/04/20 02:45 Microbiology Microbiology 11/04/20 Stool Occult Blood (SOFIYA) - Final, Complete 10/29/20 Gram Stain - Final, Complete 10/29/20 Sputum Culture - Final, Complete Enterobacter Cloacae Complex Corynebacterium Species 10/27/20 Blood Culture - Final, Complete NO GROWTH AFTER 5 DAYS 10/27/20 Blood Culture - Final, Complete NO GROWTH AFTER 5 DAYS Libby Benitez MD Nov 04, 2020 10:41
[2020-11-04] MEDS: LORazepam 2 MG TAB PO PRN (10:51)
[2020-11-04] MEDS: METOPROLOL TART 12.5 MG PER 1/2 TAB PO SCH ×2 (11:00→20:39)
[2020-11-04] MEDS: MULTIVITAMIN -ADULT INJECTION 10 ML, THIAMINE INJection 100 MG, FOLIC ACID 1 MG in NS 1... IV SCH ×2 (11:00→18:30)
[2020-11-04] MEDS: OXAZEPAM 10 MG CAP PO SCH ×3 (11:04→23:10)
[2020-11-04] MEDS ORDERED: OLANZapine INTRAMUSCULAR 10MG VIAL IM ONE (12:00)
[2020-11-04 20:35] LABS: BLOOD UREA NITROGEN 10 MG/DL (7-18); CALCIUM LEVEL 8.6 MG/DL (8.8-10.2); CARBON DIOXIDE LEVEL 28 MEQ/L (21-32); CHLORIDE LEVEL 110 MEQ/L (98-107); CREATININE FOR GFR 0.58 MG/DL (0.70-1.30); GLOMERULAR FILTRATION RATE > 60.0 (>49); GLUCOSE, FASTING 127 MG/DL (70-100); MAGNESIUM LEVEL 1.4 MG/DL (1.8-2.4); POTASSIUM SERUM 3.5 MEQ/L (3.5-5.1); SODIUM LEVEL 144 MEQ/L (136-145)
[2020-11-04] MEDS: THIAMINE 100 MG TAB PO SCH (20:39)
[2020-11-04] MEDS: HEPARIN SOD (PORCINE) 5000UNITS/ML 1ML VIAL/SYRINGE SQ SCH (20:40)
[2020-11-04] MEDS: NICOTINE 14 MG/24 HR TRANSDERMAL TD SCH (20:40)
[2020-11-04] MEDS ORDERED: MAG SULF 1GM/100ML (MAG RUN) 1 GM in IV 1 EA IV ONE ×2 (21:40→22:40)
[2020-11-05] VITALS (12 sets, daily range): BP systolic 125–147; BP diastolic 68–84; O2SAT 91–96
[2020-11-05] MEDS: OXAZEPAM 10 MG CAP PO SCH ×4 (05:04→22:31)
[2020-11-05 05:23] LABS: BASO % 0.4 % (0.0-1.0); EOS # 0.1 10^3/uL (0.0-0.5); EOS % 2.2 % (0.0-3.0); HEMATOCRIT 27.6 % (42.0-52.0); HEMOGLOBIN 9.5 g/dl (13.5-17.5); LYMPH % 19.3 % (24.0-44.0); MEAN CORPUSCULAR HEMOGLOBIN 35.6 pg (27.0-33.0); MEAN CORPUSCULAR HGB CONC 34.4 g/dl (32.0-36.5); MEAN CORPUSCULAR VOLUME 103.4 fl (80.0-96.0); MONO # 0.7 10^3/uL (0.0-0.8); MONO % 13.4 % (2.0-8.0); NEUTROPHILS # 3.3 10^3/uL (1.5-8.5); NEUTROPHILS % 64.1 % (36.0-66.0); PLATELET COUNT, AUTOMATED 279 10^3/uL (150-450); RED BLOOD COUNT 2.67 10^6/uL (4.30-6.10); WHITE BLOOD COUNT 5.1 10^3/uL (4.0-10.0)
[2020-11-05 05:37] LABS: BLOOD UREA NITROGEN 8 MG/DL (7-18); CALCIUM LEVEL 8.1 MG/DL (8.8-10.2); CARBON DIOXIDE LEVEL 29 MEQ/L (21-32); CHLORIDE LEVEL 110 MEQ/L (98-107); CREATININE FOR GFR 0.46 MG/DL (0.70-1.30); GLOMERULAR FILTRATION RATE > 60.0 (>49); GLUCOSE, FASTING 97 MG/DL (70-100); POTASSIUM SERUM 3.5 MEQ/L (3.5-5.1); SODIUM LEVEL 144 MEQ/L (136-145)
[2020-11-05 08:23] LABS: MAGNESIUM LEVEL 1.8 MG/DL (1.8-2.4); PHOSPHORUS LEVEL 2.6 MG/DL (2.5-4.9)
[2020-11-05] MEDS: levETIRAcetam 250MG TABLET (KEPPRA) PO SCH ×2 (10:14→20:17)
[2020-11-05] MEDS: cefTRIAXone SOD 2 GM in D5W MINI-BAG PLUS 50 ML IV SCH (10:14)
[2020-11-05] MEDS: METOPROLOL TART 12.5 MG PER 1/2 TAB PO SCH ×2 (10:15→20:16)
[2020-11-05] MEDS: HEPARIN SOD (PORCINE) 5000UNITS/ML 1ML VIAL/SYRINGE SQ SCH ×2 (10:15→20:17)
[2020-11-05] MEDS: THIAMINE 100 MG TAB PO SCH ×2 (10:15→20:17)
--- NOTE | 2020-11-05 11:16 | EEG ---
ELECTROENCEPHALOGRAM DATE: 11/01/2020 REFERRING PHYSICIAN: Jericho Gamino MD DIAGNOSIS: Seizure. EEG#: [id number] HISTORY: The patient is a 65-year-old man who was admitted to [facility] due to possible seizure. He has a history of polysubstance abuse, alcohol dependence, seizures. He is currently taking Keppra, oxazepam, thiamine, Ativan, etc. TECHNICAL DESCRIPTION: This digital electroencephalogram (EEG) was recorded by 21 scalp, ear, and two electrocardiogram (EKG) electrodes and was reviewed in bipolar and referential montages following reformatting in 10-20 international electrode placement system. INTERPRETATION: The patient was noted to be in awake and drowsy states during this EEG. Resting and awake background rhythm consisted of 10 Hz alpha activity measuring 15-40 microvolts in amplitude which was symmetric and reactive to eye opening. Attenuation of posterior dominant rhythm was seen during transition to drowsiness. No sleep was achieved. Hyperventilation was not performed. Photic stimulation remained unremarkable. EKG revealed normal sinus rhythm. No focal, lateralizing, or epileptiform abnormalities were seen. No relevant clinical activity was noted. Excessive muscle artifact was noted throughout this EEG, especially on the right side. CONCLUSION: This EEG in awake and drowsy states is within normal limits.
--- NOTE | 2020-11-05 12:39 | IPNPDOC ---
Subjective Date Seen The patient was seen on 11/05/20. Subjective Chief Complaint/HPI Patient is awake, alert and oriented this morning asking when he can go home. He does understand why he cannot go home today. He is agreeing to work with physical therapy. Mcmahon will be discontinued today. Objective Physical Examination General Exam: Positive: Alert, Cooperative, No Acute Distress, Other (Calm and cooperative this morning) Eye Exam: Positive: Conjunctiva & lids normal; Negative: Sclera icteric ENT Exam: Positive: Atraumatic, Mucous membr. moist/pink, Pharynx Normal Neck Exam: Positive: Supple; Negative: JVD Chest Exam: Positive: Clear to auscultation, Normal air movement Heart Exam: Positive: Tachycardic, Regular Rhythm, Normal S1, Normal S2 Abdomen Exam: Positive: Normal bowel sounds, Soft; Negative: Tenderness Extremity Exam: Negative: Clubbing, Cyanosis, Edema Skin Exam: Positive: Other skin issue (Scalp laceration with kalee, large bruising on the left hip and buttock. Bruising on the left side of the leg.); Negative: Rash Neuro Exam: Positive: Other (Unable to assess) Psych Exam: Positive: Oriented x 3 Assessment /Plan Assessment This is a 65-year-old gentleman with past medical history of heart valve repair, hepatitis C treated, polysubstance abuse, alcohol dependency, seizure disorder w ho was brought in by EMS for altered mental status and seizure. Alcohol use disorder with alcohol withdrawal Patient is at present going through withdrawals We will continue with Serax every 6 hours and Ativan as needed. thiamine, folate PT/OT Acute metabolic encephalopathy Initially due to seizure now due to alcohol withdrawal Sitter as needed Acute respiratory failure resolved secondary to inability to protect airway due to seizure He has been extubated 0n 10/30/20 Seizure episode with history of seizure disorder On Keppra 750 mg twice daily home dose was restarted on admission. The level drawn on admission is in normal range which suggests patient has been taking it. The break through seizure may have been due to alcohol withdrawal. EEG as inpatient was normal. Aspiration pneumonia Sputum culture with Enterobacter Cloacae Continue ceftriaxone. To complete for total of 7 days of antibiotics MITCH resolved Scalp laceration from mechanical fall/ Large bruising on the left hip and back and also on legs Appreciate surgery intervention/kalee. [place] to be removed in 10 days Anion gap metabolic acidosis secondary to severe lactic acidosis resolved History of the mitral heart valve repair Records from [facility] cardiology department shows that patient had a mitral valve repair and chordae tendon repair back in 2014 in [facility]. Post operative echocardiogram show intact mitral valve with severely dilated left atrium. He was on beta-dante which is currently being held due to hypotension. Will resume beta-dante when blood pressure improves Hypomagnesemia and Hypokalemia replaced History of hepatitis C treated (treated) Plan/VTE VTE Prophylaxis Ordered?: Yes [facility]O Vital Signs Date Time Temp Pulse Resp B/P (MAP) Pulse Ox O2 Delivery O2 Flow Rate FiO2 11/05/20 11:15 96 94 Room Air 11/05/20 10:15 26 2.0 11/05/20 10:15 160/77 11/05/20 08:00 99.1 10/30/20 08:00 30 I&O- Last 24 Hours up to 6 AM 11/05/20 05:59 Intake Total 1960 ml Output Total 975 ml Balance 985 ml Laboratory Data 24H LABS Laboratory Tests 2 11/04/20 19:58: Anion Gap 6L, Glomerular Filtration Rate > 60.0, Calcium Level 8.6L, Magnesium Level 1.4L 11/05/20 05:02: Anion Gap 5L, Glomerular Filtration Rate > 60.0, Calcium Level 8.1L, Magnesium Level 1.8, Immature Granulocyte % (Auto) 0.6, Neutrophils (%) (Auto) 64.1, Lymphocytes (%) (Auto) 19.3L, Monocytes (%) (Auto) 13.4H, Eosinophils (%) (Auto) 2.2, Basophils (%) (Auto) 0.4, Neutrophils # (Auto) 3.3, Lymphocytes # (Auto) 1.0L, Monocytes # (Auto) 0.7, Eosinophils # (Auto) 0.1, Basophils # (Auto) 0.0, Nucleated Red Blood Cells % (auto) 0.0, Phosphorus Level 2.6 CBC/BMP Laboratory Tests 11/04/20 19:58 11/05/20 05:02 Microbiology Microbiology 11/04/20 Stool Occult Blood (SOFIYA) - Final, Complete 10/29/20 Gram Stain - Final, Complete 10/29/20 Sputum Culture - Final, Complete Enterobacter Cloacae Complex Corynebacterium Species 10/27/20 Blood Culture - Final, Complete NO GROWTH AFTER 5 DAYS 10/27/20 Blood Culture - Final, Complete NO GROWTH AFTER 5 DAYS Libby Benitez MD Nov 05, 2020 12:39
[2020-11-05] MEDS: LORazepam 2 MG TAB PO PRN (14:35)
[2020-11-05] MEDS: NICOTINE 14 MG/24 HR TRANSDERMAL TD SCH (20:16)
[2020-11-06 06:00] VITALS: BP 134/86
[2020-11-06] MEDS: OXAZEPAM 10 MG CAP PO SCH (06:08)
[2020-11-06 06:21] LABS: BASO % 0.5 % (0.0-1.0); EOS # 0.1 10^3/uL (0.0-0.5); EOS % 2.2 % (0.0-3.0); HEMOGLOBIN 9.6 g/dl (13.5-17.5); LYMPH # 1.1 10^3/uL (1.5-5.0); LYMPH % 17.7 % (24.0-44.0); MEAN CORPUSCULAR HGB CONC 34.3 g/dl (32.0-36.5); MEAN CORPUSCULAR VOLUME 102.2 fl (80.0-96.0); MONO # 0.7 10^3/uL (0.0-0.8); MONO % 10.2 % (2.0-8.0); NEUTROPHILS # 4.4 10^3/uL (1.5-8.5); NEUTROPHILS % 68.9 % (36.0-66.0); PLATELET COUNT, AUTOMATED 337 10^3/uL (150-450); RED BLOOD COUNT 2.74 10^6/uL (4.30-6.10); WHITE BLOOD COUNT 6.4 10^3/uL (4.0-10.0)
[2020-11-06 06:50] LABS: BLOOD UREA NITROGEN 8 MG/DL (7-18); CALCIUM LEVEL 8.9 MG/DL (8.8-10.2); CARBON DIOXIDE LEVEL 28 MEQ/L (21-32); CHLORIDE LEVEL 106 MEQ/L (98-107); CREATININE FOR GFR 0.47 MG/DL (0.70-1.30); GLOMERULAR FILTRATION RATE > 60.0 (>49); GLUCOSE, FASTING 88 MG/DL (70-100); POTASSIUM SERUM 3.2 MEQ/L (3.5-5.1); SODIUM LEVEL 140 MEQ/L (136-145)
[2020-11-06] MEDS: levETIRAcetam 250MG TABLET (KEPPRA) PO SCH (08:04)
[2020-11-06] MEDS: cefTRIAXone SOD 2 GM in D5W MINI-BAG PLUS 50 ML IV SCH (08:04)
[2020-11-06] MEDS: THIAMINE 100 MG TAB PO SCH (08:04)
[2020-11-06] MEDS: HEPARIN SOD (PORCINE) 5000UNITS/ML 1ML VIAL/SYRINGE SQ SCH (08:04)
[2020-11-06 08:06] VITALS: BP 132/77
[2020-11-06] MEDS: METOPROLOL TART 12.5 MG PER 1/2 TAB PO SCH (08:06)
[2020-11-06] MEDS ORDERED: POTASSIUM CHLORIDE 10MEQ SR TABLET PO ONE (09:45)
[2020-11-06] MEDS ORDERED: OXAZEPAM 10 MG CAP PO SCH (14:00)
== END 2020-11-06 11:25 | disposition left against medical advice (07) | DRG 208 ==
LOC: M ED 16:31 → EDBD 16:31 → M ED INP 19:01 → M PCU 20:28 → M MSPAV 10-31 16:45 → M PCU 11-02 01:50 → M MSPAV 11-05 23:20
PROVIDERS: ADMIT Internal Medicine Critical Care Medicine; ATTEND Internal Medicine
PROC: 5A1945Z Respiratory Ventilation, 24-96 Consecutive Hours (ICD-10-PCS; principal; 2020-10-27)
PROC: 0BH17EZ Insertion of Endotracheal Airway into Trachea, Via Natural or Artificial Opening (ICD-10-PCS; 2020-10-27)
PROC: 02HV33Z Insertion of Infusion Device into Superior Vena Cava, Percutaneous Approach (ICD-10-PCS; 2020-10-28)
DX: J96.00 Acute respiratory failure, unspecified whether with hypoxia or hypercapnia (principal); G93.41 Metabolic encephalopathy; J69.0 Pneumonitis due to inhalation of food and vomit; N17.9 Acute kidney failure, unspecified; E87.2 Acidosis; M62.82 Rhabdomyolysis; F10.139 Alcohol abuse with withdrawal, unspecified; G40.909 Epilepsy, unspecified, not intractable, without status epilepticus; Z95.2 Presence of prosthetic heart valve; F10.120 Alcohol abuse with intoxication, uncomplicated; D75.89 Other specified diseases of blood and blood-forming organs; Z20.822 Contact with and (suspected) exposure to COVID-19; Z79.82 Long term (current) use of aspirin; Z79.899 Other long term (current) drug therapy; S01.01XA Laceration without foreign body of scalp, initial encounter; W01.0XXA Fall on same level from slipping, tripping and stumbling without subsequent striking against object, initial encounter; Y92.9 Unspecified place or not applicable; E87.6 Hypokalemia; I95.2 Hypotension due to drugs; F17.210 Nicotine dependence, cigarettes, uncomplicated

== ENCOUNTER 2021-08-20 07:32 | Emergency (ER) | payer MEDICARE, OTHER ==
[~2021-08-20] VITALS: Ht 182.9 cm; Wt 67.5 kg
[~2021-08-20 07:32] MED LIST: ASPI-161 PO; COMMENTS; LEVE750T5 PO; METO1TAB32 PO; ROSU40TA4 PO; VITA100093 PO
[2021-08-20] MEDS ORDERED: ACETAMINOPHEN 500 MG TAB PO ONE (08:55)
[2021-08-20 09:19] VITALS: BP 135/68
== END 2021-08-20 09:21 | disposition home or self-care (01) ==
LOC: M ED 07:32
DX: S22.41XA Multiple fractures of ribs, right side, initial encounter for closed fracture (principal); J44.9 Chronic obstructive pulmonary disease, unspecified; W07.XXXA Fall from chair, initial encounter; I10 Essential (primary) hypertension; I25.2 Old myocardial infarction; R56.9 Unspecified convulsions; E78.5 Hyperlipidemia, unspecified; F17.200 Nicotine dependence, unspecified, uncomplicated; Z79.82 Long term (current) use of aspirin; Z79.899 Other long term (current) drug therapy

== ENCOUNTER 2021-09-02 20:52 | Emergency (ER) | payer MEDICARE, OTHER ==
[~2021-09-02] VITALS: Ht 182.9 cm; Wt 71.0 kg
[2021-09-02 22:01] LABS: BASO # 0.1 10^3/uL (0.0-0.2); BASO % 0.5 % (0.0-1.0); EOS % 0.4 % (0.0-3.0); HEMATOCRIT 36.9 % (42.0-52.0); HEMOGLOBIN 13.1 g/dl (13.5-17.5); LYMPH # 1.5 10^3/uL (1.5-5.0); LYMPH % 15.8 % (24.0-44.0); MEAN CORPUSCULAR HEMOGLOBIN 36.1 pg (27.0-33.0); MEAN CORPUSCULAR HGB CONC 35.5 g/dl (32.0-36.5); MEAN CORPUSCULAR VOLUME 101.7 fl (80.0-96.0); MONO # 0.8 10^3/uL (0.0-0.8); NEUTROPHILS # 7.3 10^3/uL (1.5-8.5); PLATELET COUNT, AUTOMATED 203 10^3/uL (150-450); RED BLOOD COUNT 3.63 10^6/uL (4.30-6.10); WHITE BLOOD COUNT 9.8 10^3/uL (4.0-10.0)
[2021-09-02 22:24] LABS: BLOOD UREA NITROGEN 8 MG/DL (7-18); CALCIUM LEVEL 8.7 MG/DL (8.8-10.2); CARBON DIOXIDE LEVEL 27 MEQ/L (21-32); CHLORIDE LEVEL 102 MEQ/L (98-107); CREATININE FOR GFR 0.67 MG/DL (0.70-1.30); ETHYL ALCOHOL (ETHANOL) 0.311 % (0.000-0.010); GLOMERULAR FILTRATION RATE > 60.0 (>49); GLUCOSE, FASTING 91 MG/DL (70-100); POTASSIUM SERUM 3.9 MEQ/L (3.5-5.1); SODIUM LEVEL 138 MEQ/L (136-145)
[2021-09-02 22:33] LABS: AMPHETAMINES URINE REFLEX NEGATIVE (NEGATIVE); BARBITURATES URINE REFLEX NEGATIVE (NEGATIVE); BENZODIAZEPINES URINE REFLEX NEGATIVE (NEGATIVE); COCAINE METABOLITE URINE REFLE NEGATIVE (NEGATIVE); METHADONE URINE REFLEX NEGATIVE (NEGATIVE); OPIATES URINE REFLEX NEGATIVE (NEGATIVE); PHENCYCLIDINE URINE REFLEX NEGATIVE (NEGATIVE)
[2021-09-02 22:34] LABS: CANNABINOIDS URINE REFLEX PENDING CONFIRMATION (NEGATIVE)
[2021-09-02 23:03] VITALS: BP 136/75
== END 2021-09-02 23:21 | disposition home or self-care (01) ==
LOC: M ED 20:52 → EDBD 20:52 → M ED 23:21
DX: S00.03XA Contusion of scalp, initial encounter (principal); S80.211A Abrasion, right knee, initial encounter; W19.XXXA Unspecified fall, initial encounter; Y92.099 Unspecified place in other non-institutional residence as the place of occurrence of the external cause; I51.9 Heart disease, unspecified; R56.9 Unspecified convulsions; F17.200 Nicotine dependence, unspecified, uncomplicated; Z79.82 Long term (current) use of aspirin; Z79.899 Other long term (current) drug therapy
CPT/HCPCS: 70450; 72125; 80048; 80307; 82077; 85025; 93005; 99284; G0480

== ENCOUNTER 2021-10-14 07:22 | Emergency (ER) | payer MEDICARE, OTHER ==
[~2021-10-14] VITALS: Ht 182.9 cm; Wt 67.5 kg
[2021-10-14 07:22] VITALS: BP 145/80
[2021-10-14 08:45] LABS: BASO % 0.5 % (0.0-1.0); EOS % 0.6 % (0.0-3.0); HEMATOCRIT 39.7 % (42.0-52.0); HEMOGLOBIN 14.1 g/dl (13.5-17.5); LYMPH # 1.1 10^3/uL (1.5-5.0); LYMPH % 16.2 % (24.0-44.0); MEAN CORPUSCULAR HEMOGLOBIN 36.1 pg (27.0-33.0); MEAN CORPUSCULAR HGB CONC 35.5 g/dl (32.0-36.5); MEAN CORPUSCULAR VOLUME 101.5 fl (80.0-96.0); MONO # 0.6 10^3/uL (0.0-0.8); MONO % 9.5 % (2.0-8.0); NEUTROPHILS # 4.8 10^3/uL (1.5-8.5); PLATELET COUNT, AUTOMATED 202 10^3/uL (150-450); RED BLOOD COUNT 3.91 10^6/uL (4.30-6.10); WHITE BLOOD COUNT 6.5 10^3/uL (4.0-10.0)
[2021-10-14 09:49] LABS: INR 1.13; PROTHROMBIN TIME 14.9 SECONDS (12.7-14.5)
[2021-10-14 09:50] LABS: PARTIAL THROMBOPLASTIN TIME 25.7 SECONDS (25.9-37.0)
[2021-10-14 10:04] LABS: ALBUMIN 4.2 GM/DL (3.2-5.2); BILIRUBIN,DIRECT 0.3 MG/DL (0.0-0.2); BILIRUBIN,TOTAL 0.8 MG/DL (0.2-1.0); TOTAL PROTEIN 7.7 GM/DL (6.4-8.2)
== END 2021-10-14 10:24 | disposition home or self-care (01) ==
LOC: M ED 07:22
DX: R58 Hemorrhage, not elsewhere classified (principal); I25.2 Old myocardial infarction; I10 Essential (primary) hypertension; R56.9 Unspecified convulsions; Z87.442 Personal history of urinary calculi; Z79.899 Other long term (current) drug therapy

== ENCOUNTER 2021-10-16 18:57 | Emergency (ER) | payer MEDICARE, OTHER ==
[~2021-10-16] VITALS: Ht 182.9 cm; Wt 65.0 kg
[2021-10-16 19:45] VITALS: BP 121/74
[2021-10-16 22:17] VITALS: O2SAT 98
== END 2021-10-16 21:15 | disposition home or self-care (01) ==
LOC: M ED 18:57
DX: S42.002A Fracture of unspecified part of left clavicle, initial encounter for closed fracture (principal); W19.XXXA Unspecified fall, initial encounter; F10.129 Alcohol abuse with intoxication, unspecified; F19.10 Other psychoactive substance abuse, uncomplicated; G40.909 Epilepsy, unspecified, not intractable, without status epilepticus; Z79.899 Other long term (current) drug therapy

== ENCOUNTER 2021-10-20 17:11 | Emergency (ER) | payer MEDICARE, OTHER ==
[~2021-10-20] VITALS: Ht 182.9 cm; Wt 73.0 kg
== END 2021-10-20 19:17 | disposition left against medical advice (07) ==
LOC: M ED 17:11
DX: Z53.21 Procedure and treatment not carried out due to patient leaving prior to being seen by health care provider (principal)

== ENCOUNTER 2021-10-22 18:59 | Emergency (ER) | payer MEDICARE, OTHER ==
[2021-10-22] MEDS ORDERED: NS 500 ML IV ONE (19:30)
[2021-10-22] MEDS ORDERED: levETIRAcetam INJection 1,000 MG in D5W 100 ML IV ONE (19:35)
[2021-10-22 19:53] LABS: BASO % 0.8 % (0.0-1.0); EOS # 0.1 10^3/uL (0.0-0.5); EOS % 1.5 % (0.0-3.0); HEMATOCRIT 35.6 % (42.0-52.0); HEMOGLOBIN 12.9 g/dl (13.5-17.5); LYMPH # 1.6 10^3/uL (1.5-5.0); LYMPH % 29.2 % (24.0-44.0); MEAN CORPUSCULAR HEMOGLOBIN 35.9 pg (27.0-33.0); MEAN CORPUSCULAR HGB CONC 36.2 g/dl (32.0-36.5); MEAN CORPUSCULAR VOLUME 99.2 fl (80.0-96.0); MONO # 0.6 10^3/uL (0.0-0.8); MONO % 11.3 % (2.0-8.0); PLATELET COUNT, AUTOMATED 212 10^3/uL (150-450); RED BLOOD COUNT 3.59 10^6/uL (4.30-6.10); WHITE BLOOD COUNT 5.3 10^3/uL (4.0-10.0)
[2021-10-22 20:21] LABS: RSV AMPLIFICATION NEGATIVE (NEGATIVE)
[2021-10-22 20:24] LABS: CK-MB VALUE MASS 3.1 NG/ML (<3.6); MB/CK RELATIVE INDEX 1.4 (< OR =4)
[2021-10-22 20:33] LABS: OSMOLALITY SERUM 353 MOSM/KG (280-301)
[2021-10-22 20:46] LABS: ACETAMINOPHEN LEVEL < 2.0 UG/ML (10.0-30.0); ALBUMIN 3.5 GM/DL (3.2-5.2); ALT/SGPT 33 U/L (12-78); BILIRUBIN,DIRECT 0.4 MG/DL (0.0-0.2); BILIRUBIN,TOTAL 0.9 MG/DL (0.2-1.0); BLOOD UREA NITROGEN 9 MG/DL (7-18); CALCIUM LEVEL 8.5 MG/DL (8.8-10.2); CARBON DIOXIDE LEVEL 26 MEQ/L (21-32); CHLORIDE LEVEL 103 MEQ/L (98-107); CREATININE FOR GFR 0.66 MG/DL (0.70-1.30); ETHYL ALCOHOL (ETHANOL) 0.286 % (0.000-0.010); GLOMERULAR FILTRATION RATE > 60.0 (>49); GLUCOSE, FASTING 91 MG/DL (70-100); POTASSIUM SERUM 3.8 MEQ/L (3.5-5.1); SALICYLATE LEVEL 4.1 MG/DL (5.0-30.0); SODIUM LEVEL 138 MEQ/L (136-145); THYROID STIMULATING HORMONE 0.671 uIU/ML (0.358-3.740); TOTAL PROTEIN 7.1 GM/DL (6.4-8.2)
[2021-10-22 21:27] LABS: AMPHETAMINES LEVEL URINE NEGATIVE (NEGATIVE); BARBITURATES URINE NEGATIVE (NEGATIVE); BENZODIAZEPINES URINE NEGATIVE (NEGATIVE); CANNABINOIDS URINE POSITIVE (NEGATIVE); COCAINE METABOLITE URINE NEGATIVE (NEGATIVE); METHADONE URINE NEGATIVE (NEGATIVE); OPIATES URINE NEGATIVE (NEGATIVE); PHENCYCLIDINE URINE NEGATIVE (NEGATIVE)
[2021-10-22 23:15] VITALS: BP 124/70
== END 2021-10-23 00:24 | disposition home or self-care (01) ==
LOC: M ED 18:59 → EDBD 18:59 → M ED 10-23 00:24
DX: G40.909 Epilepsy, unspecified, not intractable, without status epilepticus (principal); F10.129 Alcohol abuse with intoxication, unspecified; B88.9 Infestation, unspecified; Z79.899 Other long term (current) drug therapy
CPT/HCPCS: 70450; 71045; 80048; 80076; 80143; 80180; 80307; 82077; 82550; 82553; 83930; 84443; 84484; 85025; 87040; 87631; 93005; 93041; 94760; 96365; 96366; 99285; J1953

== ENCOUNTER 2021-11-25 19:14 | Inpatient (IN) | payer MEDICARE, OTHER ==
[~2021-11-25] VITALS: Ht 182.9 cm; Wt 67.1 kg
[2021-11-25] MEDS ORDERED: NS 1,000 ML IV ONE (21:40)
[2021-11-25] MEDS ORDERED: NORCO, ANEXSIA 5/325MG TABLET (HYDROcodone/ACETAMINOPHEN) PO ONE (21:40)
[2021-11-25 22:28] LABS: BASO % 0.2 % (0.0-1.0); HEMATOCRIT 36.9 % (42.0-52.0); HEMOGLOBIN 12.5 g/dl (13.5-17.5); LYMPH # 1.2 10^3/uL (1.5-5.0); LYMPH % 13.1 % (24.0-44.0); MEAN CORPUSCULAR HEMOGLOBIN 35.4 pg (27.0-33.0); MEAN CORPUSCULAR HGB CONC 33.9 g/dl (32.0-36.5); MEAN CORPUSCULAR VOLUME 104.5 fl (80.0-96.0); MONO # 0.6 10^3/uL (0.0-0.8); MONO % 6.2 % (2.0-8.0); NEUTROPHILS # 7.1 10^3/uL (1.5-8.5); NEUTROPHILS % 80.2 % (36.0-66.0); PLATELET COUNT, AUTOMATED 221 10^3/uL (150-450); RED BLOOD COUNT 3.53 10^6/uL (4.30-6.10); WHITE BLOOD COUNT 8.9 10^3/uL (4.0-10.0)
[2021-11-25 22:31] LABS: APPEARANCE, URINE MANUAL CLEAR (CLEAR); COLOR, URINE MANUAL YELLOW (YELLOW)
[2021-11-25 22:32] LABS: SPECIFIC GRAVITY,URINE MANUAL 1.015 (1.002-1.035)
[2021-11-25 22:33] LABS: GLUCOSE, URINE (UA) MANUAL NEGATIVE (NEGATIVE); KETONE, URINE MANUAL NEGATIVE (NEGATIVE); PROTEIN, URINE MANUAL NEGATIVE (NEGATIVE)
[2021-11-25 22:34] LABS: BILIRUBIN, URINE MANUAL NEGATIVE (NEGATIVE); BLOOD URINE MANUAL NEGATIVE (NEGATIVE); LEUKOCYTE ESTERASE, URINE MAN TRACE (NEGATIVE); NITRITE, URINE MANUAL NEGATIVE (NEGATIVE); UROBILINOGEN, URINE MANUAL NORMAL (NORMAL)
[2021-11-25 22:40] LABS: INR 1.18; PARTIAL THROMBOPLASTIN TIME 28.1 SECONDS (25.9-37.0); PROTHROMBIN TIME 15.4 SECONDS (12.7-14.5)
[2021-11-25 22:48] LABS: RBC, URINE NONE SEEN /hpf (0-3); SQUAMOUS EPITHELIAL CELL URINE SMALL AMOUNT /hpf (SMALL AMT); WBC, URINE 0-1 /hpf (0-3)
[2021-11-25 22:49] LABS: AMORPHOUS SEDIMENT, URINE SMALL AMOUNT (NEGATIVE); BACTERIA, URINE NONE SEEN; HYALINE CAST, URINE NONE SEEN /lpf (0-1); MUCUS, URINE SMALL AMOUNT (NEGATIVE)
[2021-11-25 22:55] LABS: ALBUMIN 3.9 GM/DL (3.2-5.2); BILIRUBIN,DIRECT 0.1 MG/DL (0.0-0.2); BILIRUBIN,TOTAL 0.5 MG/DL (0.2-1.0); ETHYL ALCOHOL (ETHANOL) 0.144 % (0.000-0.010); TOTAL PROTEIN 7.1 GM/DL (6.4-8.2)
[2021-11-25 22:56] LABS: CK-MB VALUE MASS 2.1 NG/ML (<3.6); MB/CK RELATIVE INDEX 0.97 (< OR =4)
[2021-11-25 23:05] LABS: AMPHETAMINES LEVEL URINE NEGATIVE (NEGATIVE); BARBITURATES URINE NEGATIVE (NEGATIVE); BENZODIAZEPINES URINE NEGATIVE (NEGATIVE); CANNABINOIDS URINE POSITIVE (NEGATIVE); COCAINE METABOLITE URINE POSITIVE (NEGATIVE); METHADONE URINE NEGATIVE (NEGATIVE); OPIATES URINE NEGATIVE (NEGATIVE); PHENCYCLIDINE URINE NEGATIVE (NEGATIVE)
[2021-11-25] MEDS ORDERED: ISOVUE-370 76% 100ML VIAL As Ordered ONE (23:19)
[2021-11-25] MEDS ORDERED: NS 1,000 ML IV SCH (23:35)
[2021-11-26] VITALS (15 sets, daily range): BP systolic 138–149; BP diastolic 70–84; O2SAT 90–96
[2021-11-26] MEDS ORDERED: ONDANSETRON 4MG 2ML VIAL IV PRN (01:20)
[2021-11-26] MEDS ORDERED: MORPHINE 2 MG/ML 1ML VIAL IV PRN (01:20)
[2021-11-26] MEDS ORDERED: LEVE750T5 PO (01:57)
[2021-11-26] MEDS ORDERED: ROSU40TA4 PO (01:57)
[2021-11-26] MEDS ORDERED: METO1TAB32 PO (01:57)
[2021-11-26] MEDS ORDERED: VITA100093 PO (01:57)
[2021-11-26] MEDS ORDERED: HOME MED LIST COMPLETE! XX SCH (02:00)
[2021-11-26] MEDS: KETOROLAC 30 MG/ML 1ML VIAL IV PRN ×2 (02:47→09:24)
[2021-11-26] MEDS ORDERED: NORCO, ANEXSIA 5/325MG TABLET (HYDROcodone/ACETAMINOPHEN) PO PRN (04:00)
[2021-11-26] MEDS ORDERED: NS 1,000 ML IV SCH (04:55)
[2021-11-26] MEDS ORDERED: levETIRAcetam 250MG TABLET (KEPPRA) PO SCH (09:00)
[2021-11-26] MEDS ORDERED: PANTOPRAZOLE 40MG TAB (PROTONIX) PO SCH (09:00)
[2021-11-26] MEDS ORDERED: ROSUVASTATIN 10 MG TAB (CRESTOR) PO SCH (09:00)
[2021-11-26] MEDS ORDERED: ENOXAPARIN 40MG/0.4ML SYRINGE (J1650 PER 10MG) SC SCH (09:00)
[2021-11-26] MEDS ORDERED: VITAMIN D 1,000 INTERNATIONAL UNITS TABLET PO SCH (09:00)
[2021-11-26] MEDS ORDERED: ALBUTEROL SULFATE 2.5 MG/0.5 ML INH NEB SOLN NEB PRN (10:20)
[2021-11-26 10:43] LABS: HEMOGLOBIN 13.1 g/dl (13.5-17.5); MEAN CORPUSCULAR HEMOGLOBIN 36.1 pg (27.0-33.0); MEAN CORPUSCULAR HGB CONC 34.5 g/dl (32.0-36.5); MEAN CORPUSCULAR VOLUME 104.7 fl (80.0-96.0); PLATELET COUNT, AUTOMATED 206 10^3/uL (150-450); RED BLOOD COUNT 3.63 10^6/uL (4.30-6.10)
[2021-11-26] MEDS ORDERED: METOPROLOL SUCC *XL* 12.5MG PER 1/2 TAB (TopROL *XL*) PO SCH (21:00)
[2021-11-27] MEDS ORDERED: FLUBLOK(EGG FREE)(QUAD)INFLUENZA VACC 0.5ML SYRINGE 18YRS & OLDER IM.IMMUN ONE (09:00)
[2021-11-27] MEDS ORDERED: PREVNAR-20 VACCINE 0.5ML SYRINGE IM.IMMUN ONE (09:00)
== END 2021-11-26 16:18 | disposition left against medical advice (07) | DRG 183 ==
LOC: M ED 19:14 → M ED INP 11-26 01:16 → ENRESERV 11-26 01:34 → M PCU 11-26 02:14
PROVIDERS: ADMIT Surgery; ATTEND Surgery
DX: S22.42XA Multiple fractures of ribs, left side, initial encounter for closed fracture (principal); S27.1XXA Traumatic hemothorax, initial encounter; E87.20 Acidosis, unspecified; I48.91 Unspecified atrial fibrillation; F17.210 Nicotine dependence, cigarettes, uncomplicated; Z95.1 Presence of aortocoronary bypass graft; E78.5 Hyperlipidemia, unspecified; Y04.2XXA Assault by strike against or bumped into by another person, initial encounter; J45.909 Unspecified asthma, uncomplicated; G40.909 Epilepsy, unspecified, not intractable, without status epilepticus; Z79.899 Other long term (current) drug therapy; Z79.01 Long term (current) use of anticoagulants; Z20.822 Contact with and (suspected) exposure to COVID-19; Z91.199 Patient's noncompliance with other medical treatment and regimen due to unspecified reason

== ENCOUNTER 2022-01-25 08:29 | Inpatient (IN) | payer MEDICARE, OTHER ==
[~2022-01-25] VITALS: Ht 180.3 cm; Wt 62.6 kg
[2022-01-25] MEDS ORDERED: LORazepam 2 MG TAB PO PRN (08:50)
[2022-01-25] MEDS ORDERED: NS 1,000 ML IV ONE ×2 (08:50→12:00)
[2022-01-25] MEDS: levETIRAcetam 250MG TABLET (KEPPRA) PO SCH ×2 (09:00→19:47)
[2022-01-25] MEDS ORDERED: FOLIC ACID 1MG TAB PO SCH (09:00)
[2022-01-25] MEDS ORDERED: THIAMINE 100 MG TAB PO SCH (09:00)
[2022-01-25] MEDS ORDERED: MULTIVITAMINS/MINERALS THERAP 1 TAB PO SCH (09:00)
[2022-01-25 09:45] LABS: BASO % 0.1 % (0.0-1.0); HEMATOCRIT 29.7 % (42.0-52.0); HEMOGLOBIN 10.7 g/dl (13.5-17.5); LYMPH # 0.4 10^3/uL (1.5-5.0); MEAN CORPUSCULAR HEMOGLOBIN 35.4 pg (27.0-33.0); MEAN CORPUSCULAR VOLUME 98.3 fl (80.0-96.0); MONO # 0.9 10^3/uL (0.0-0.8); MONO % 7.9 % (2.0-8.0); NEUTROPHILS # 10.3 10^3/uL (1.5-8.5); NEUTROPHILS % 88.7 % (36.0-66.0); PLATELET COUNT, AUTOMATED 156 10^3/uL (150-450); RED BLOOD COUNT 3.02 10^6/uL (4.30-6.10); VENOUS BASE EXCESS 2.5 (-2.0-2.0); VENOUS HCO3 26.1 MEQ/L (23.0-27.0); VENOUS O2 SATURATION 86.1 % (60.0-80.0); VENOUS PARTIAL PRESSURE CO2 36.9 mmHg (38.0-50.0); VENOUS PARTIAL PRESSURE O2 48.1 mmHg (30.0-50.0); VENOUS PH 7.468 UNITS (7.330-7.430); VENOUS STANDARD HCO3 26.5 MEQ/L; VENOUS TOTAL CO2 27.3 MEQ/L (24.0-28.0); WHITE BLOOD COUNT 11.6 10^3/uL (4.0-10.0)
[2022-01-25 10:13] LABS: INR 1.12; PROTHROMBIN TIME 14.6 SECONDS (12.5-14.5)
[2022-01-25 10:22] LABS: ETHYL ALCOHOL (ETHANOL) 0.004 % (0.000-0.010); RSV AMPLIFICATION NEGATIVE (NEGATIVE)
[2022-01-25 10:24] LABS: BILIRUBIN,DIRECT 0.6 MG/DL (<0.4)
[2022-01-25 10:28] LABS: THYROID STIMULATING HORMONE 0.819 uIU/ML (0.55-4.78)
[2022-01-25 10:39] LABS: AMPHETAMINES LEVEL URINE NEGATIVE (NEGATIVE); BARBITURATES URINE NEGATIVE (NEGATIVE); BENZODIAZEPINES URINE NEGATIVE (NEGATIVE)
[2022-01-25 10:40] LABS: METHADONE URINE NEGATIVE (NEGATIVE); OPIATES URINE NEGATIVE (NEGATIVE); PHENCYCLIDINE URINE NEGATIVE (NEGATIVE)
[2022-01-25 10:41] LABS: OSMOLALITY SERUM 270 MOSM/KG (280-301)
[2022-01-25 10:51] LABS: ALBUMIN 3.6 G/DL (3.2-5.2); ALKALINE PHOSPHATASE 75 U/L (46-116); ALT/SGPT 30 U/L (7.0-40); AST/SGOT 35 U/L (<34); BILIRUBIN,TOTAL 1.5 MG/DL (0.3-1.2); BLOOD UREA NITROGEN 14 MG/DL (9-23); CALCIUM LEVEL 8.9 MG/DL (8.3-10.6); CANNABINOIDS URINE POSITIVE (NEGATIVE); CARBON DIOXIDE LEVEL 27 MMOL/L (20-31); CHLORIDE LEVEL 94 MMOL/L (98-107); COCAINE METABOLITE URINE POSITIVE (NEGATIVE); CREATININE FOR GFR 0.58 MG/DL (0.70-1.30); GLOMERULAR FILTRATION RATE > 60.0 (>49); GLUCOSE, FASTING 109 MG/DL (74-106); POTASSIUM SERUM 3.7 MMOL/L (3.5-5.1); SODIUM LEVEL 132 MMOL/L (136-145); TOTAL PROTEIN 6.4 G/DL (5.7-8.2)
[2022-01-25 11:56] LABS: CPK CREATINE PHOSPHOKINASE 219 U/L (46-171)
[2022-01-25] MEDS ORDERED: MAG SULF 1GM/100ML (MAG RUN) 1 GM in IV 1 EA IV ONE (12:00)
[2022-01-25] MEDS ORDERED: BOOSTRIX/ADACEL VACCINE (DIPHTH/PERTUSS/ACELL/TETANUS) 0.5ML SYR IM.IMMUN ONE (14:25)
[2022-01-25] MEDS ORDERED: ACETAMINOPHEN TAB 650MG DOSE (2X325MG) PO PRN (14:45)
[2022-01-25] MEDS ORDERED: HOME MED LIST COMPLETE! XX SCH (15:25)
[2022-01-25] MEDS: ENOXAPARIN 40MG/0.4ML SYRINGE (J1650 PER 10MG) SC SCH (16:41)
[2022-01-25] MEDS: KETOROLAC 30 MG/ML 1ML VIAL IV PRN (16:42)
[2022-01-25] MEDS: NS 1,000 ML IV SCH (16:43)
[2022-01-25] MEDS: NICOTINE 21MG/24HR 1 EA TRANSDERMAL TD SCH (16:43)
[2022-01-25 17:40] VITALS: BP 108/75
[2022-01-25 18:28] VITALS: BP_SYST 102; BP_SYST 104; BP_SYST 95; BP_DIAS 64; BP_DIAS 71; BP_DIAS 72
[2022-01-25] MEDS: THIAMINE 100 MG TAB PO SCH (19:47)
[2022-01-25] MEDS: PANTOPRAZOLE 40MG TAB (PROTONIX) PO SCH (19:48)
[2022-01-25 20:20] VITALS: BP 112/69
[2022-01-25 21:08] VITALS: BP 112/69
[2022-01-26] MEDS: NS 1,000 ML IV SCH (00:59)
[2022-01-26] MEDS ORDERED: TEMAZEPAM 7.5 MG CAP PO PRN (02:00)
[2022-01-26] MEDS: KETOROLAC 30 MG/ML 1ML VIAL IV PRN ×2 (05:55→18:22)
[2022-01-26 06:00] VITALS: BP 109/68
[2022-01-26 06:19] LABS: BASO % 0.2 % (0.0-1.0); HEMATOCRIT 23.5 % (42.0-52.0); LYMPH # 0.8 10^3/uL (1.5-5.0); LYMPH % 12.9 % (24.0-44.0); MEAN CORPUSCULAR HEMOGLOBIN 36.6 pg (27.0-33.0); MEAN CORPUSCULAR HGB CONC 36.2 g/dl (32.0-36.5); MEAN CORPUSCULAR VOLUME 101.3 fl (80.0-96.0); MONO # 0.7 10^3/uL (0.0-0.8); MONO % 11.4 % (2.0-8.0); NEUTROPHILS # 4.9 10^3/uL (1.5-8.5); NEUTROPHILS % 75.2 % (36.0-66.0); PLATELET COUNT, AUTOMATED 128 10^3/uL (150-450); RED BLOOD COUNT 2.32 10^6/uL (4.30-6.10); WHITE BLOOD COUNT 6.5 10^3/uL (4.0-10.0)
[2022-01-26 06:21] LABS: HEMOGLOBIN 8.5 g/dl (13.5-17.5)
[2022-01-26 06:40] LABS: MAGNESIUM LEVEL 1.6 MG/DL (1.8-2.4)
[2022-01-26 06:42] LABS: BLOOD UREA NITROGEN 17 MG/DL (9-23); CALCIUM LEVEL 7.9 MG/DL (8.3-10.6); CARBON DIOXIDE LEVEL 25 MMOL/L (20-31); CHLORIDE LEVEL 99 MMOL/L (98-107); CREATININE FOR GFR 0.53 MG/DL (0.70-1.30); GLOMERULAR FILTRATION RATE > 60.0 (>49); GLUCOSE, FASTING 99 MG/DL (74-106); IRON (FE) 21 UG/DL (65-175); POTASSIUM SERUM 3.3 MMOL/L (3.5-5.1); SODIUM LEVEL 133 MMOL/L (136-145); TOTAL IRON BINDING CAPACITY 211 UG/DL (250-425)
[2022-01-26 06:44] LABS: FERRITIN 284.6 NG/ML (10.5-307.3); FOLATE 18.93 NG/ML (>5.4); VITAMIN B12 LEVEL 279 PG/ML (211-911)
[2022-01-26] MEDS ORDERED: MAG SULF 1GM/100ML (MAG RUN) 1 GM in IV 1 EA IV ONE (08:05)
[2022-01-26] MEDS ORDERED: MAGNESIUM OXIDE 400MG TAB (MAG-OX) PO SCH (09:00)
[2022-01-26 09:04] VITALS: BP 108/68
[2022-01-26] MEDS: POTASSIUM CHLORIDE 10MEQ SR TABLET PO SCH (09:06)
[2022-01-26] MEDS: THIAMINE 100 MG TAB PO SCH ×2 (09:06→20:20)
[2022-01-26] MEDS: MULTIVITAMINS/MINERALS THERAP 1 TAB PO SCH (09:06)
[2022-01-26] MEDS: levETIRAcetam 250MG TABLET (KEPPRA) PO SCH ×2 (09:07→20:20)
[2022-01-26] MEDS: FOLIC ACID 1MG TAB PO SCH (09:07)
[2022-01-26] MEDS: CYANOCOBALAMIN 500 MCG TAB PO SCH (09:08)
[2022-01-26] MEDS: NICOTINE 21MG/24HR 1 EA TRANSDERMAL TD SCH (09:08)
[2022-01-26] MEDS: ENOXAPARIN 40MG/0.4ML SYRINGE (J1650 PER 10MG) SC SCH (09:08)
[2022-01-26 14:00] VITALS: BP 107/67
[2022-01-26] MEDS: PANTOPRAZOLE 40MG TAB (PROTONIX) PO SCH (20:20)
[2022-01-26] MEDS: FERROUS GLUCONATE 324 MG TAB PO SCH (20:20)
[2022-01-26 20:51] VITALS: BP_SYST 117; BP_SYST 121; BP_SYST 126; BP_DIAS 75; BP_DIAS 77; BP_DIAS 79
[2022-01-26 21:02] VITALS: BP 117/79
[2022-01-26 22:00] VITALS: BP 118/75
[2022-01-27 06:00] VITALS: BP_SYST 106; BP_SYST 111; BP_SYST 117; BP_DIAS 66; BP_DIAS 72; BP_DIAS 74
[2022-01-27 06:07] LABS: BASO % 0.5 % (0.0-1.0); EOS # 0.1 10^3/uL (0.0-0.5); EOS % 1.1 % (0.0-3.0); HEMATOCRIT 24.1 % (42.0-52.0); HEMOGLOBIN 8.3 g/dl (13.5-17.5); LYMPH # 0.8 10^3/uL (1.5-5.0); LYMPH % 18.6 % (24.0-44.0); MEAN CORPUSCULAR HEMOGLOBIN 36.1 pg (27.0-33.0); MEAN CORPUSCULAR HGB CONC 34.4 g/dl (32.0-36.5); MEAN CORPUSCULAR VOLUME 104.8 fl (80.0-96.0); MONO # 0.6 10^3/uL (0.0-0.8); MONO % 12.6 % (2.0-8.0); NEUTROPHILS # 2.9 10^3/uL (1.5-8.5); NEUTROPHILS % 66.7 % (36.0-66.0); PLATELET COUNT, AUTOMATED 149 10^3/uL (150-450); WHITE BLOOD COUNT 4.4 10^3/uL (4.0-10.0)
[2022-01-27 06:28] LABS: MAGNESIUM LEVEL 1.7 MG/DL (1.8-2.4)
[2022-01-27 06:30] LABS: BLOOD UREA NITROGEN 16 MG/DL (9-23); CALCIUM LEVEL 8.3 MG/DL (8.3-10.6); CARBON DIOXIDE LEVEL 27 MMOL/L (20-31); CHLORIDE LEVEL 100 MMOL/L (98-107); CREATININE FOR GFR 0.59 MG/DL (0.70-1.30); GLOMERULAR FILTRATION RATE > 60.0 (>49); GLUCOSE, FASTING 84 MG/DL (74-106); PHOSPHORUS LEVEL 2.9 MG/DL (2.4-5.1); POTASSIUM SERUM 3.6 MMOL/L (3.5-5.1); SODIUM LEVEL 135 MMOL/L (136-145)
[2022-01-27] MEDS ORDERED: MAG SULF 1GM/100ML (MAG RUN) 1 GM in IV 1 EA IV ONE (08:00)
[2022-01-27] MEDS: FERROUS GLUCONATE 324 MG TAB PO SCH ×2 (08:29→20:10)
[2022-01-27] MEDS: CYANOCOBALAMIN 500 MCG TAB PO SCH (08:30)
[2022-01-27] MEDS: levETIRAcetam 250MG TABLET (KEPPRA) PO SCH ×2 (08:30→20:10)
[2022-01-27] MEDS: THIAMINE 100 MG TAB PO SCH ×2 (08:30→20:10)
[2022-01-27] MEDS: MULTIVITAMINS/MINERALS THERAP 1 TAB PO SCH (08:30)
[2022-01-27] MEDS: POTASSIUM CHLORIDE 10MEQ SR TABLET PO SCH (08:31)
[2022-01-27] MEDS: ENOXAPARIN 40MG/0.4ML SYRINGE (J1650 PER 10MG) SC SCH (08:31)
[2022-01-27] MEDS: FOLIC ACID 1MG TAB PO SCH (08:31)
[2022-01-27] MEDS: NICOTINE 21MG/24HR 1 EA TRANSDERMAL TD SCH (08:36)
[2022-01-27 14:00] VITALS: BP_SYST 107; BP_SYST 117; BP_DIAS 70; BP_DIAS 74
[2022-01-27] MEDS: PANTOPRAZOLE 40MG TAB (PROTONIX) PO SCH (20:10)
[2022-01-27 20:15] VITALS: BP 129/75
[2022-01-27 20:55] VITALS: BP 129/75
[2022-01-27 21:40] VITALS: BP 144/87
[2022-01-27] MEDS ORDERED: guaiFENesin SYRUP 200MG 10ML UDC PO PRN (21:45)
[2022-01-27] MEDS ORDERED: levETIRAcetam 250MG TABLET (KEPPRA) PO ONE (22:20)
[2022-01-27] MEDS ORDERED: IPRATROPIUM 0.02% SOLN 0.5MG 2.5ML NEB INH PRN (23:45)
[2022-01-27] MEDS ORDERED: LEVALBUTEROL 1.25MG 0.5ML CONCENTRATE NEB INH PRN (23:45)
[2022-01-28] VITALS (11 sets, daily range): BP systolic 107–135; BP diastolic 65–85; O2SAT 92
[2022-01-28] MEDS: LORazepam 2 MG TAB PO PRN ×4 (05:19→14:15)
[2022-01-28 06:12] LABS: BASO % 0.2 % (0.0-1.0); EOS # 0.1 10^3/uL (0.0-0.5); EOS % 1.3 % (0.0-3.0); HEMATOCRIT 24.5 % (42.0-52.0); HEMOGLOBIN 8.6 g/dl (13.5-17.5); LYMPH # 0.8 10^3/uL (1.5-5.0); LYMPH % 16.7 % (24.0-44.0); MEAN CORPUSCULAR HEMOGLOBIN 36.4 pg (27.0-33.0); MEAN CORPUSCULAR HGB CONC 35.1 g/dl (32.0-36.5); MEAN CORPUSCULAR VOLUME 103.8 fl (80.0-96.0); MONO # 0.7 10^3/uL (0.0-0.8); MONO % 15.6 % (2.0-8.0); NEUTROPHILS # 3.1 10^3/uL (1.5-8.5); NEUTROPHILS % 65.6 % (36.0-66.0); PLATELET COUNT, AUTOMATED 196 10^3/uL (150-450); RED BLOOD COUNT 2.36 10^6/uL (4.30-6.10); WHITE BLOOD COUNT 4.7 10^3/uL (4.0-10.0)
[2022-01-28 06:47] LABS: MAGNESIUM LEVEL 1.5 MG/DL (1.8-2.4)
[2022-01-28 06:48] LABS: BLOOD UREA NITROGEN 13 MG/DL (9-23); CALCIUM LEVEL 8.3 MG/DL (8.3-10.6); CARBON DIOXIDE LEVEL 26 MMOL/L (20-31); CHLORIDE LEVEL 99 MMOL/L (98-107); CREATININE FOR GFR 0.57 MG/DL (0.70-1.30); GLOMERULAR FILTRATION RATE > 60.0 (>49); GLUCOSE, FASTING 108 MG/DL (74-106); POTASSIUM SERUM 3.7 MMOL/L (3.5-5.1); SODIUM LEVEL 135 MMOL/L (136-145)
[2022-01-28] MEDS ORDERED: MAGNESIUM OXIDE 400MG TAB (MAG-OX) PO ONE (07:55)
[2022-01-28] MEDS: FOLIC ACID 1MG TAB PO SCH (08:18)
[2022-01-28] MEDS: MULTIVITAMINS/MINERALS THERAP 1 TAB PO SCH (08:18)
[2022-01-28] MEDS: THIAMINE 100 MG TAB PO SCH (08:18)
[2022-01-28] MEDS: CYANOCOBALAMIN 500 MCG TAB PO SCH (08:19)
[2022-01-28] MEDS: FERROUS GLUCONATE 324 MG TAB PO SCH ×2 (08:19→21:00)
[2022-01-28] MEDS: levETIRAcetam 250MG TABLET (KEPPRA) PO SCH ×2 (08:20→21:00)
[2022-01-28] MEDS: NICOTINE 21MG/24HR 1 EA TRANSDERMAL TD SCH (08:23)
[2022-01-28] MEDS: ENOXAPARIN 40MG/0.4ML SYRINGE (J1650 PER 10MG) SC SCH (09:00)
[2022-01-28] MEDS: OXAZEPAM 10MG CAP PO SCH ×2 (11:45→18:00)
[2022-01-28] MEDS ORDERED: LORazepam 2 MG/ML VIAL IV ONE (12:50)
[2022-01-28] MEDS ORDERED: LORazepam 2 MG/ML VIAL IV PRN (14:35)
[2022-01-28] MEDS: PANTOPRAZOLE 40MG TAB (PROTONIX) PO SCH (21:00)
[2022-01-29] VITALS (11 sets, daily range): BP systolic 93–118; BP diastolic 62–78; O2SAT 93
[2022-01-29] MEDS ORDERED: levETIRAcetam INJection 1,000 MG in D5W 100 ML IV ONE (02:30)
[2022-01-29] MEDS: OXAZEPAM 10MG CAP PO SCH ×4 (04:51→22:03)
[2022-01-29 06:19] LABS: BASO % 0.2 % (0.0-1.0); EOS # 0.1 10^3/uL (0.0-0.5); EOS % 1.8 % (0.0-3.0); HEMATOCRIT 25.9 % (42.0-52.0); HEMOGLOBIN 8.8 g/dl (13.5-17.5); LYMPH % 20.2 % (24.0-44.0); MEAN CORPUSCULAR HEMOGLOBIN 35.6 pg (27.0-33.0); MEAN CORPUSCULAR VOLUME 104.9 fl (80.0-96.0); MONO # 0.9 10^3/uL (0.0-0.8); NEUTROPHILS % 59.2 % (36.0-66.0); PLATELET COUNT, AUTOMATED 242 10^3/uL (150-450); RED BLOOD COUNT 2.47 10^6/uL (4.30-6.10); WHITE BLOOD COUNT 5.1 10^3/uL (4.0-10.0)
[2022-01-29 07:31] LABS: MAGNESIUM LEVEL 1.5 MG/DL (1.8-2.4)
[2022-01-29 07:32] LABS: BLOOD UREA NITROGEN 12 MG/DL (9-23); CALCIUM LEVEL 8.8 MG/DL (8.3-10.6); CARBON DIOXIDE LEVEL 28 MMOL/L (20-31); CHLORIDE LEVEL 99 MMOL/L (98-107); CREATININE FOR GFR 0.54 MG/DL (0.70-1.30); GLOMERULAR FILTRATION RATE > 60.0 (>49); GLUCOSE, FASTING 101 MG/DL (74-106); POTASSIUM SERUM 3.6 MMOL/L (3.5-5.1); SODIUM LEVEL 136 MMOL/L (136-145)
[2022-01-29] MEDS ORDERED: MAGNESIUM OXIDE 400MG TAB (MAG-OX) PO ONE (07:45)
[2022-01-29] MEDS: FERROUS GLUCONATE 324 MG TAB PO SCH ×2 (10:44→22:03)
[2022-01-29] MEDS: FOLIC ACID 1MG TAB PO SCH (10:44)
[2022-01-29] MEDS: MULTIVITAMINS/MINERALS THERAP 1 TAB PO SCH (10:45)
[2022-01-29] MEDS: CYANOCOBALAMIN 500 MCG TAB PO SCH (10:45)
[2022-01-29] MEDS: levETIRAcetam 250MG TABLET (KEPPRA) PO SCH ×2 (10:45→22:03)
[2022-01-29] MEDS: ENOXAPARIN 40MG/0.4ML SYRINGE (J1650 PER 10MG) SC SCH (10:45)
[2022-01-29] MEDS: NICOTINE 21MG/24HR 1 EA TRANSDERMAL TD SCH (10:45)
[2022-01-29] MEDS: NS 1,000 ML IV SCH (12:47)
[2022-01-29] MEDS: PANTOPRAZOLE 40MG TAB (PROTONIX) PO SCH (22:03)
[2022-01-30 02:00] VITALS: BP 112/78
[2022-01-30] MEDS: NS 1,000 ML IV SCH (03:49)
[2022-01-30 05:40] VITALS: BP 113/78
[2022-01-30 06:13] VITALS: BP 113/78
[2022-01-30] MEDS: OXAZEPAM 10MG CAP PO SCH (06:14)
[2022-01-30 06:37] LABS: BASO % 0.6 % (0.0-1.0); EOS # 0.1 10^3/uL (0.0-0.5); EOS % 2.4 % (0.0-3.0); HEMATOCRIT 25.9 % (42.0-52.0); HEMOGLOBIN 8.8 g/dl (13.5-17.5); LYMPH % 28.7 % (24.0-44.0); MEAN CORPUSCULAR HEMOGLOBIN 36.2 pg (27.0-33.0); MEAN CORPUSCULAR VOLUME 106.6 fl (80.0-96.0); MONO # 0.6 10^3/uL (0.0-0.8); NEUTROPHILS # 1.7 10^3/uL (1.5-8.5); NEUTROPHILS % 49.7 % (36.0-66.0); PLATELET COUNT, AUTOMATED 217 10^3/uL (150-450); RED BLOOD COUNT 2.43 10^6/uL (4.30-6.10); WHITE BLOOD COUNT 3.4 10^3/uL (4.0-10.0)
[2022-01-30 07:09] LABS: MAGNESIUM LEVEL 1.6 MG/DL (1.8-2.4)
[2022-01-30 07:19] LABS: BLOOD UREA NITROGEN 7 MG/DL (9-23); CALCIUM LEVEL 8.2 MG/DL (8.3-10.6); CARBON DIOXIDE LEVEL 24 MMOL/L (20-31); CHLORIDE LEVEL 104 MMOL/L (98-107); CREATININE FOR GFR 0.51 MG/DL (0.70-1.30); GLOMERULAR FILTRATION RATE > 60.0 (>49); GLUCOSE, FASTING 91 MG/DL (74-106); POTASSIUM SERUM 4.1 MMOL/L (3.5-5.1); SODIUM LEVEL 136 MMOL/L (136-145)
[2022-01-30 08:00] VITALS: BP 100/60
[2022-01-30] MEDS ORDERED: MAGNESIUM OXIDE 400MG TAB (MAG-OX) PO ONE (08:00)
[2022-01-30] MEDS: FERROUS GLUCONATE 324 MG TAB PO SCH (08:12)
[2022-01-30] MEDS: NICOTINE 21MG/24HR 1 EA TRANSDERMAL TD SCH (08:13)
[2022-01-30] MEDS: MULTIVITAMINS/MINERALS THERAP 1 TAB PO SCH (08:13)
[2022-01-30] MEDS: ENOXAPARIN 40MG/0.4ML SYRINGE (J1650 PER 10MG) SC SCH (08:13)
[2022-01-30] MEDS: FOLIC ACID 1MG TAB PO SCH (08:13)
[2022-01-30] MEDS: levETIRAcetam 250MG TABLET (KEPPRA) PO SCH (08:13)
[2022-01-30] MEDS: CYANOCOBALAMIN 500 MCG TAB PO SCH (08:13)
[2022-01-30] MEDS: KETOROLAC 30 MG/ML 1ML VIAL IV PRN (08:20)
[2022-01-30 14:00] VITALS: BP 110/72
[2022-01-30] MEDS ORDERED: VITMTA PO (16:05)
[2022-01-30] MEDS ORDERED: FOLI1TAB11 PO (16:05)
[2022-01-30] MEDS ORDERED: ACET1TAB55 PO (16:05)
[2022-01-30] MEDS ORDERED: VITA500T40 PO (16:05)
[2022-01-30] MEDS ORDERED: FERR32TA PO (16:05)
[2022-01-30] MEDS ORDERED: KEPP250T5 PO (16:07)
== END 2022-01-30 17:14 | disposition home or self-care (01) | DRG 563 ==
LOC: M ED 08:29 → EDBD 08:29 → M ED INP 14:42 → ENRESERV 16:33 → M MSPAV 18:31
PROVIDERS: ADMIT Internal Medicine Nephrology; ATTEND Family Medicine
DX: S42.212A Unspecified displaced fracture of surgical neck of left humerus, initial encounter for closed fracture (principal); F10.139 Alcohol abuse with withdrawal, unspecified; S42.022A Displaced fracture of shaft of left clavicle, initial encounter for closed fracture; J44.9 Chronic obstructive pulmonary disease, unspecified; G40.909 Epilepsy, unspecified, not intractable, without status epilepticus; I10 Essential (primary) hypertension; R29.6 Repeated falls; K80.20 Calculus of gallbladder without cholecystitis without obstruction; S00.03XA Contusion of scalp, initial encounter; W19.XXXA Unspecified fall, initial encounter; Y92.039 Unspecified place in apartment as the place of occurrence of the external cause; Y93.9 Activity, unspecified; Y99.8 Other external cause status; F17.200 Nicotine dependence, unspecified, uncomplicated; I95.9 Hypotension, unspecified; E86.0 Dehydration; E83.42 Hypomagnesemia; E53.8 Deficiency of other specified B group vitamins; R19.7 Diarrhea, unspecified; D53.9 Nutritional anemia, unspecified; Z79.899 Other long term (current) drug therapy

== ENCOUNTER → 2022-02-06 | Outpatient (CLI) | payer MEDICARE, OTHER ==
[~2022-02-06] MED LIST changes: +ACET1TAB55 PO; +FERR32TA PO; +FOLI1TAB11 PO; +KEPP250T5 PO; +VITA500T40 PO; +VITMTA PO
== END ==
LOC: M SOG 08:24
PROVIDERS: ATTEND Orthopaedic Surgery
DX: Z47.89 Encounter for other orthopedic aftercare (principal); S42.002A Fracture of unspecified part of left clavicle, initial encounter for closed fracture; Z53.9 Procedure and treatment not carried out, unspecified reason

== ENCOUNTER 2022-08-29 21:25 | Emergency (ER) | payer MEDICARE, OTHER ==
[~2022-08-29] VITALS: Ht 182.9 cm; Wt 66.4 kg
[2022-08-29 22:26] LABS: BASO % 0.3 % (0.0-1.0); EOS # 0.1 10^3/uL (0.0-0.5); EOS % 0.8 % (0.0-3.0); HEMATOCRIT 37.7 % (42.0-52.0); HEMOGLOBIN 13.3 g/dl (13.5-17.5); LYMPH # 1.6 10^3/uL (1.5-5.0); MEAN CORPUSCULAR HEMOGLOBIN 35.2 pg (27.0-33.0); MEAN CORPUSCULAR HGB CONC 35.3 g/dl (32.0-36.5); MEAN CORPUSCULAR VOLUME 99.7 fl (80.0-96.0); MONO # 0.7 10^3/uL (0.0-0.8); MONO % 8.5 % (2.0-8.0); NEUTROPHILS # 6.3 10^3/uL (1.5-8.5); NEUTROPHILS % 71.9 % (36.0-66.0); PLATELET COUNT, AUTOMATED 170 10^3/uL (150-450); RED BLOOD COUNT 3.78 10^6/uL (4.30-6.10); WHITE BLOOD COUNT 8.7 10^3/uL (4.0-10.0)
[2022-08-29 22:30] LABS: LIPASE 47 U/L (12-53)
[2022-08-29 22:32] LABS: ALBUMIN 3.4 G/DL (3.2-5.2); ALKALINE PHOSPHATASE 64 U/L (46-116); ALT/SGPT 16 U/L (7.0-40); AST/SGOT 22 U/L (<34); BILIRUBIN,TOTAL 0.9 MG/DL (0.3-1.2); BLOOD UREA NITROGEN 8 MG/DL (9-23); CALCIUM LEVEL 9.2 MG/DL (8.3-10.6); CARBON DIOXIDE LEVEL 24 MMOL/L (20-31); CHLORIDE LEVEL 102 MMOL/L (98-107); CREATININE FOR GFR 0.55 MG/DL (0.70-1.30); GLOMERULAR FILTRATION RATE > 60.0 (>49); GLUCOSE, FASTING 81 MG/DL (74-106); POTASSIUM SERUM 3.8 MMOL/L (3.5-5.1); SODIUM LEVEL 136 MMOL/L (136-145); TOTAL PROTEIN 6.5 G/DL (5.7-8.2)
[2022-08-29 22:35] LABS: THYROID STIMULATING HORMONE 1.101 uIU/ML (0.55-4.78)
[2022-08-29] MEDS ORDERED: NS 1,000 ML IV ONE (23:20)
[2022-08-29] MEDS ORDERED: THIAMINE 200MG 2ML VIAL IM ONE (23:55)
[2022-08-30] MEDS ORDERED: levETIRAcetam INJection 3,000 MG in D5W 100 ML IV ONE (01:00)
[2022-08-30 02:40] VITALS: BP 116/74; TEMP 97; O2SAT 90
== END 2022-08-30 02:44 | disposition home or self-care (01) ==
LOC: M ED 21:25 → EDBD 21:25 → M ED 08-30 02:44
DX: R56.9 Unspecified convulsions (principal); F10.129 Alcohol abuse with intoxication, unspecified; M50.30 Other cervical disc degeneration, unspecified cervical region; M53.84 Other specified dorsopathies, thoracic region; I25.10 Atherosclerotic heart disease of native coronary artery without angina pectoris; I10 Essential (primary) hypertension; E78.5 Hyperlipidemia, unspecified; F17.200 Nicotine dependence, unspecified, uncomplicated; Z79.899 Other long term (current) drug therapy
CPT/HCPCS: 36415; 70450; 71045; 72125; 72190; 80053; 80180; 83605; 83690; 83880; 84443; 85025; 87040; 87077; 87186; 93005; 96372; 96374; 99285; J1953; J3411

== ENCOUNTER 2024-04-11 11:34 | Emergency (ER) | payer OTHER, MEDICARE ==
[~2024-04-11] VITALS: Ht 182.9 cm; Wt 66.1 kg
[~2024-04-11 11:34] MED LIST changes: -ASPI-161 PO; +ASPI-615 PO; -ROSU40TA4 PO; +ROSU40TA81 PO
[2024-04-11] MEDS: NS 500 ML IV ONE (11:55)
[2024-04-11 11:59] VITALS: TEMP 98.1
[2024-04-11] MEDS: ONDANSETRON 4MG 2ML VIAL IV ONE (12:21)
[2024-04-11 12:29] LABS: VENOUS BASE EXCESS 5.6 (-2.0-2.0); VENOUS HCO3 26.8 MMOL/L (23.0-27.0); VENOUS O2 SATURATION 96.7 % (60.0-80.0); VENOUS PARTIAL PRESSURE CO2 29.3 mmHg (38.0-50.0); VENOUS PARTIAL PRESSURE O2 84.1 mmHg (30.0-50.0); VENOUS PH 7.579 UNITS (7.330-7.430); VENOUS STANDARD HCO3 29.5 MMOL/L; VENOUS TOTAL CO2 27.7 MMOL/L (24.0-28.0)
[2024-04-11] MEDS ORDERED: ISOVUE-370 76% 100ML VIAL As Ordered ONE (12:34)
[2024-04-11 12:38] LABS: BASO % 0.1 % (0.0-1.0); EOS % 0.1 % (0.0-3.0); HEMATOCRIT 36.8 % (42.0-52.0); HEMOGLOBIN 13.4 g/dl (13.5-17.5); LYMPH # 0.2 10^3/uL (1.5-5.0); MEAN CORPUSCULAR HEMOGLOBIN 35.2 pg (27.0-33.0); MEAN CORPUSCULAR HGB CONC 36.4 g/dl (32.0-36.5); MEAN CORPUSCULAR VOLUME 96.6 fl (80.0-96.0); MONO # 0.3 10^3/uL (0.0-0.8); MONO % 3.6 % (2.0-8.0); NEUTROPHILS # 7.1 10^3/uL (1.5-8.5); NEUTROPHILS % 93.9 % (36.0-66.0); PLATELET COUNT, AUTOMATED 143 10^3/uL (150-450); RED BLOOD COUNT 3.81 10^6/uL (4.30-6.10); WHITE BLOOD COUNT 7.6 10^3/uL (4.0-10.0)
[2024-04-11 12:48] LABS: INR 1.17; PARTIAL THROMBOPLASTIN TIME 25.6 SECONDS (24.8-34.2); PROTHROMBIN TIME 15.2 SECONDS (12.5-14.5)
[2024-04-11 13:06] LABS: LIPASE 33 U/L (12-53)
[2024-04-11 13:09] LABS: SALICYLATE LEVEL < 3.0 MG/DL (<30)
[2024-04-11 13:14] LABS: ETHYL ALCOHOL (ETHANOL) < 0.003 % (0.000-0.010)
[2024-04-11 13:26] LABS: CPK CREATINE PHOSPHOKINASE 656 U/L (46-171)
[2024-04-11 13:36] LABS: AMYLASE 97 U/L (30-118)
[2024-04-11 13:41] LABS: ALBUMIN 3.7 G/DL (3.2-5.2); ALKALINE PHOSPHATASE 70 U/L (40-129); ALT/SGPT 42 U/L (7.0-40); AST/SGOT 62 U/L (<34); BILIRUBIN,DIRECT 0.5 MG/DL (<0.4); BILIRUBIN,TOTAL 1.4 MG/DL (0.3-1.2); BLOOD UREA NITROGEN 12 MG/DL (9-23); CARBON DIOXIDE LEVEL 25 MMOL/L (20-31); CHLORIDE LEVEL 100 MMOL/L (98-107); CK-MB VALUE MASS 2.9 NG/ML (<3.6); CREATININE FOR GFR 0.67 MG/DL (0.70-1.30); FREE T4 1.19 NG/DL (0.89-1.76); GLOMERULAR FILTRATION RATE > 60.0 (>49); GLUCOSE, FASTING 206 MG/DL (74-106); MB/CK RELATIVE INDEX 0.44 (< OR =4); POTASSIUM SERUM 3.5 MMOL/L (3.5-5.1); SODIUM LEVEL 139 MMOL/L (136-145)
[2024-04-11 13:57] LABS: CK-MB VALUE MASS 2.7 NG/ML (<3.6)
[2024-04-11 13:58] LABS: APPEARANCE, URINE CLEAR (CLEAR); BACTERIA, URINE AUTO NEGATIVE (NEGATIVE); BILIRUBIN, URINE AUTO NEGATIVE (NEGATIVE); BLOOD, URINE BLOOD 1+ (NEGATIVE); COLOR, URINE YELLOW (YELLOW); GLUCOSE, URINE (UA) AUTO 1+ mg/dL (NEGATIVE); KETONE, URINE AUTO 1+ mg/dL (NEGATIVE); LEUKOCYTE ESTERASE, URINE AUTO NEGATIVE (NEGATIVE); MUCUS, URINE SMALL (NEGATIVE); NITRITE, URINE AUTO NEGATIVE (NEGATIVE); PROTEIN, URINE AUTO 1+ mg/dL (NEGATIVE); RBC, URINE AUTO 1 /HPF (0-3); SPECIFIC GRAVITY URINE AUTO 1.028 (1.002-1.035); SQUAMOUS EPITHELIAL CELL UR AU 0 /HPF (0-6); WBC, URINE AUTO 2 /HPF (0-3)
[2024-04-11 14:04] LABS: MB/CK RELATIVE INDEX 0.45 (< OR =4)
[2024-04-11 14:19] LABS: AMPHETAMINES LEVEL URINE NEGATIVE (NEGATIVE)
[2024-04-11 14:20] LABS: BARBITURATES URINE NEGATIVE (NEGATIVE); BENZODIAZEPINES URINE NEGATIVE (NEGATIVE); COCAINE METABOLITE URINE NEGATIVE (NEGATIVE); METHADONE URINE NEGATIVE (NEGATIVE); OPIATES URINE NEGATIVE (NEGATIVE); PHENCYCLIDINE URINE NEGATIVE (NEGATIVE)
[2024-04-11] MEDS ORDERED: NS 500 ML IV ONE (14:25)
[2024-04-11 14:29] LABS: CANNABINOIDS URINE POSITIVE (NEGATIVE)
[2024-04-11 14:30] VITALS: O2SAT 98
[2024-04-11 14:31] VITALS: BP 139/72
== END 2024-04-11 14:56 | disposition left against medical advice (07) ==
LOC: M ED 11:34 → EDBD 11:34 → M ED 14:56
DX: S02.831A Fracture of medial orbital wall, right side, initial encounter for closed fracture (principal); S02.2XXA Fracture of nasal bones, initial encounter for closed fracture; W00.0XXA Fall on same level due to ice and snow, initial encounter; Y92.89 Other specified places as the place of occurrence of the external cause; Y93.9 Activity, unspecified; Y99.9 Unspecified external cause status; R91.8 Other nonspecific abnormal finding of lung field; M85.88 Other specified disorders of bone density and structure, other site; M47.812 Spondylosis without myelopathy or radiculopathy, cervical region; Z53.9 Procedure and treatment not carried out, unspecified reason; K76.0 Fatty (change of) liver, not elsewhere classified; K80.20 Calculus of gallbladder without cholecystitis without obstruction; N28.1 Cyst of kidney, acquired; I25.10 Atherosclerotic heart disease of native coronary artery without angina pectoris; I50.9 Heart failure, unspecified; I25.2 Old myocardial infarction; I48.91 Unspecified atrial fibrillation; F10.10 Alcohol abuse, uncomplicated; J44.9 Chronic obstructive pulmonary disease, unspecified; F17.200 Nicotine dependence, unspecified, uncomplicated; Z79.899 Other long term (current) drug therapy
CPT/HCPCS: 70450; 70486; 71045; 71260; 72125; 74177; 80047; 80048; 80076; 80143; 80307; 81001; 82077; 82150; 82550; 82553; 82803; 83605; 83690; 84439; 84443; 84484; 85025; 85610; 85730; 93005; 93041; 94760; 96374; 99285; J2405; Q9967

== ENCOUNTER 2025-01-25 21:17 | Emergency (ER) | payer MEDICARE, OTHER ==
[~2025-01-25] VITALS: Ht 182.9 cm; Wt 66.1 kg
[~2025-01-25 21:17] MED LIST changes: +ALBU8.5H INH; +AMOX875T2 PO; +BACI1CAP PO; +BUDE90AE INH; +CARA1TAB6 PO; +CEFD1CAP9 PO; +COMBAER6 INH; +DOXY100T PO; +NICO14DI24 TD; +PRED10TA2 PO; +PRED20TA PO; +PROT1TAB2 PO; +SPIR1CAP INH; +THIA100TA PO
[2025-01-25] MEDS: levETIRAcetam INJection 1,000 MG in IV 1 EA IV ONE (22:14)
[2025-01-25 22:31] VITALS: TEMP 97.7
[2025-01-25 22:33] LABS: BASO # 0.0 10^3/uL (0.0-0.2); BASO % 0.2 % (0.0-1.0); EOS # 0.0 10^3/uL (0.0-0.5); EOS % 0.0 % (0.0-3.0); LYMPH # 0.6 10^3/uL (1.5-5.0); LYMPH % 3.9 % (24.0-44.0); MONO # 0.8 10^3/uL (0.0-0.8); MONO % 5.7 % (2.0-8.0); NEUTROPHILS # 12.9 10^3/uL (1.5-8.5); NEUTROPHILS % 90.0 % (36.0-66.0); PLATELET COUNT, AUTOMATED 222 10^3/uL (150-450)
[2025-01-25 22:58] LABS: CK-MB VALUE MASS 11.1 NG/ML (<3.6)
[2025-01-25 22:59] LABS: ETHYL ALCOHOL (ETHANOL) 0.157 % (0.000-0.010)
[2025-01-25 23:01] LABS: ALT/SGPT 19 U/L (7.0-40); AST/SGOT 48 U/L (<34); CALCIUM LEVEL 9.0 MG/DL (8.3-10.6); CARBON DIOXIDE LEVEL 23 MMOL/L (20-31); CHLORIDE LEVEL 104 MMOL/L (98-107); CREATININE FOR GFR 0.88 MG/DL (0.70-1.30); GLOMERULAR FILTRATION RATE > 90.0 (>49); MAGNESIUM LEVEL 1.9 MG/DL (1.8-2.4); PHOSPHORUS LEVEL 3.8 MG/DL (2.4-5.1); POTASSIUM SERUM 4.6 MMOL/L (3.5-5.1); SODIUM LEVEL 144 MMOL/L (136-145)
[2025-01-25 23:03] LABS: CPK CREATINE PHOSPHOKINASE 660 U/L (46-171); FREE T4 1.11 NG/DL (0.89-1.76); MB/CK RELATIVE INDEX 1.68 (< OR =4)
[2025-01-25 23:33] LABS: KETONE, URINE AUTO RFX TRACE mg/dL (NEGATIVE); LEUKOCYTE ESTERASE UR AUTO RFX NEGATIVE (NEGATIVE); MUCUS, URINE RFX SMALL (NEGATIVE); NITRITE, URINE AUTO RFX NEGATIVE (NEGATIVE); RBC, URINE AUTO RFX 1 /HPF (0-3); SQUAM EPITHELIAL CELL UR AURFX 0 /HPF (0-6); WBC, URINE AUTO RFX 3 /HPF (0-3)
[2025-01-25 23:45] LABS: CK-MB VALUE MASS 13.6 NG/ML (<3.6)
[2025-01-25 23:46] LABS: CPK CREATINE PHOSPHOKINASE 679.0 U/L (46-171); MB/CK RELATIVE INDEX 2.0 (< OR =4)
[2025-01-26 00:01] LABS: AMPHETAMINES LEVEL URINE NEGATIVE (NEGATIVE); BARBITURATES URINE NEGATIVE (NEGATIVE); BENZODIAZEPINES URINE NEGATIVE (NEGATIVE); COCAINE METABOLITE URINE NEGATIVE (NEGATIVE); METHADONE URINE NEGATIVE (NEGATIVE); OPIATES URINE NEGATIVE (NEGATIVE); PHENCYCLIDINE URINE NEGATIVE (NEGATIVE)
[2025-01-26 00:10] LABS: CANNABINOIDS URINE POSITIVE (NEGATIVE)
[2025-01-26 05:15] VITALS: BP 151/65; O2SAT 93
== END 2025-01-26 05:27 | disposition home or self-care (01) ==
LOC: M ED 21:17
DX: R07.9 Chest pain, unspecified (principal); I25.10 Atherosclerotic heart disease of native coronary artery without angina pectoris; I25.2 Old myocardial infarction; I10 Essential (primary) hypertension; G40.909 Epilepsy, unspecified, not intractable, without status epilepticus; Z86.19 Personal history of other infectious and parasitic diseases; F19.10 Other psychoactive substance abuse, uncomplicated; F12.10 Cannabis abuse, uncomplicated; Z79.899 Other long term (current) drug therapy
CPT/HCPCS: 51701; 70450; 71045; 80048; 80076; 80177; 80307; 81001; 82077; 82550; 82553; 83735; 84100; 84439; 84443; 84484; 85025; 93005; 94760; 96365; 99285; J1953

== ENCOUNTER 2025-01-28 09:18 | Emergency (ER) | payer MEDICARE, OTHER ==
[~2025-01-28] VITALS: Ht 182.9 cm; Wt 63.3 kg
[2025-01-28] MEDS: CYCLOBENZAPRINE 5 MG TABLET PO ONE (11:33)
[2025-01-28] MEDS: KETOROLAC 30 MG/ML 1 ML VIAL IM ONE (11:33)
[2025-01-28] MEDS: ACETAMINOPHEN 500 MG TAB PO ONE (11:33)
[2025-01-28] MEDS ORDERED: CYCL5TAB4 PO (12:36)
[2025-01-28] MEDS ORDERED: KETO-204 PO (12:36)
[2025-01-28 12:42] VITALS: BP 104/62; TEMP 97.4; O2SAT 94
== END 2025-01-28 12:44 | disposition home or self-care (01) ==
LOC: EDBD 09:18 → EDUNIT# 09:18 → M ED 09:18
DX: S79.911A Unspecified injury of right hip, initial encounter (principal); W10.8XXA Fall (on) (from) other stairs and steps, initial encounter; Y92.009 Unspecified place in unspecified non-institutional (private) residence as the place of occurrence of the external cause; Y93.9 Activity, unspecified; Y99.9 Unspecified external cause status; I10 Essential (primary) hypertension; Z86.19 Personal history of other infectious and parasitic diseases; Z87.442 Personal history of urinary calculi; F17.200 Nicotine dependence, unspecified, uncomplicated; Z79.899 Other long term (current) drug therapy

== ENCOUNTER 2025-01-30 09:04 | Inpatient (IN) | payer OTHER, MEDICARE ==
[~2025-01-30] VITALS: Ht 182.9 cm; Wt 67.7 kg
[~2025-01-30 09:04] MED LIST changes: +CYCL5TAB4 PO; +KETO-204 PO
[2025-01-30 09:43] LABS: VENOUS BASE EXCESS 0.2 (-2.0-2.0); VENOUS HCO3 25.1 MMOL/L (23.0-27.0); VENOUS O2 SATURATION 86.4 % (60.0-80.0); VENOUS PARTIAL PRESSURE CO2 41.5 mmHg (38.0-50.0); VENOUS PARTIAL PRESSURE O2 51.9 mmHg (30.0-50.0); VENOUS PH 7.399 UNITS (7.330-7.430); VENOUS STANDARD HCO3 24.4 MMOL/L; VENOUS TOTAL CO2 26.3 MMOL/L (24.0-28.0)
[2025-01-30] MEDS: ASPIRIN 81 MG CHEWABLE TABLET PO ONE (09:44)
[2025-01-30] MEDS: NS 500 ML IV ONE ×2 (09:45→10:33)
[2025-01-30 09:48] LABS: BASO # 0.0 10^3/uL (0.0-0.2); BASO % 0.1 % (0.0-1.0); EOS # 0.0 10^3/uL (0.0-0.5); EOS % 0.1 % (0.0-3.0); LYMPH # 0.7 10^3/uL (1.5-5.0); LYMPH % 4.5 % (24.0-44.0); MONO # 1.1 10^3/uL (0.0-0.8); MONO % 7.5 % (2.0-8.0); NEUTROPHILS # 12.7 10^3/uL (1.5-8.5); NEUTROPHILS % 87.4 % (36.0-66.0); PLATELET COUNT, AUTOMATED 216 10^3/uL (150-450)
[2025-01-30] MEDS ORDERED: CYCL5TAB4 PO (09:51)
[2025-01-30 10:07] LABS: ETHYL ALCOHOL (ETHANOL) < 0.003 % (0.000-0.010); MAGNESIUM LEVEL 1.8 MG/DL (1.8-2.4)
[2025-01-30 10:22] LABS: ALT/SGPT 17 U/L (7.0-40); AST/SGOT 29 U/L (<34); CALCIUM LEVEL 8.1 MG/DL (8.3-10.6); CARBON DIOXIDE LEVEL 27 MMOL/L (20-31); CHLORIDE LEVEL 100 MMOL/L (98-107); CK-MB VALUE MASS 1.2 NG/ML (<3.6); CREATININE FOR GFR 0.79 MG/DL (0.70-1.30); GLOMERULAR FILTRATION RATE > 90.0 (>49); POTASSIUM SERUM 4.3 MMOL/L (3.5-5.1); SODIUM LEVEL 135 MMOL/L (136-145)
[2025-01-30 10:26] LABS: FREE T4 1.38 NG/DL (0.89-1.76)
[2025-01-30 10:46] LABS: CPK CREATINE PHOSPHOKINASE 127 U/L (46-171); MB/CK RELATIVE INDEX 0.94 (< OR =4)
[2025-01-30] MEDS: NS (Normal Saline) 0.9% 1,000 ML IV SCH ×2 (11:06→15:40)
[2025-01-30] MEDS ORDERED: ISOVUE-370 76% 100 ML VIAL As Ordered ONE (11:30)
[2025-01-30 11:41] LABS: CK-MB VALUE MASS < 1.0 NG/ML (<3.6)
[2025-01-30 11:45] LABS: CPK CREATINE PHOSPHOKINASE 111 U/L (46-171)
[2025-01-30] MEDS ORDERED: HOME MED LIST COMPLETE! XX SCH (12:35)
[2025-01-30] MEDS: METOPROLOL 5 MG/5 ML VIAL IV SCH (12:35)
[2025-01-30 12:40] LABS: AMPHETAMINES LEVEL URINE NEGATIVE (NEGATIVE)
[2025-01-30 12:41] LABS: BARBITURATES URINE NEGATIVE (NEGATIVE); BENZODIAZEPINES URINE NEGATIVE (NEGATIVE); COCAINE METABOLITE URINE NEGATIVE (NEGATIVE)
[2025-01-30 12:42] LABS: METHADONE URINE NEGATIVE (NEGATIVE); OPIATES URINE NEGATIVE (NEGATIVE); PHENCYCLIDINE URINE NEGATIVE (NEGATIVE)
[2025-01-30 12:51] LABS: CANNABINOIDS URINE POSITIVE (NEGATIVE)
[2025-01-30] MEDS: AZITHROMYCIN 250 MG TABLET PO ONE (12:55)
[2025-01-30] MEDS: cefTRIAXone SOD 1 GM in DEXTROSE 5% (D5W) ADV/MINI-BAG 50 ML IV ONE (12:55)
[2025-01-30] MEDS: NS (Normal Saline) 0.9% 1,000 ML IV ONE (12:56)
[2025-01-30] MEDS: DIGOXIN INJ 0.5 MG/2 ML AMP IV STA (15:12)
[2025-01-30] MEDS ORDERED: MOM 30 ML SUSPENSION UDC PO PRN (15:15)
[2025-01-30] MEDS ORDERED: MAALOX 30 ML SUSP *UDC PO PRN (15:15)
[2025-01-30] MEDS ORDERED: ACETAMINOPHEN 325 MG TAB PO PRN (15:15)
[2025-01-30] MEDS ORDERED: IPRATROPIUM 0.5 MG/ALBUTEROL 2.5 MG INH SOL UD 3 ML NEB PRN (15:40)
[2025-01-30 17:01] VITALS: BP 142/69; TEMP 97.3; O2SAT 94
[2025-01-30] MEDS: METOPROLOL TART 25 MG TABLET PO SCH (18:39)
[2025-01-30] MEDS: IPRATROPIUM 0.5 MG/ALBUTEROL 2.5 MG INH SOL UD 3 ML NEB SCH (20:02)
[2025-01-30 20:38] VITALS: BP 98/58; TEMP 99.6; O2SAT 95
[2025-01-30] MEDS: DOCUSATE SODIUM 100 MG CAPSULE PO SCH (20:51)
[2025-01-30] MEDS: PANTOPRAZOLE 40MG VIAL IV SCH (21:01)
[2025-01-30] MEDS: ENOXAPARIN 80 MG/0.8 ML SYRINGE (J1650 PER 10MG) SC SCH (21:02)
[2025-01-30] MEDS: DOXYCYCLINE HYCLATE 100 MG TABLET PO SCH (21:02)
[2025-01-31 00:24] VITALS: BP 100/74; TEMP 99; O2SAT 96
[2025-01-31] MEDS: cefTRIAXone SOD 2 GM in DEXTROSE 5% (D5W) ADV/MINI-BAG 50 ML IV SCH (00:33)
[2025-01-31] MEDS: DIGOXIN INJ 0.5 MG/2 ML AMP IV SCH (00:33)
[2025-01-31 04:14] VITALS: BP 122/74; TEMP 97.6; O2SAT 96
[2025-01-31 06:31] LABS: BASO # 0.0 10^3/uL (0.0-0.2); BASO % 0.2 % (0.0-1.0); EOS # 0.0 10^3/uL (0.0-0.5); EOS % 0.4 % (0.0-3.0); LYMPH # 0.8 10^3/uL (1.5-5.0); LYMPH % 8.5 % (24.0-44.0); MONO # 1.0 10^3/uL (0.0-0.8); MONO % 10.3 % (2.0-8.0); NEUTROPHILS # 7.8 10^3/uL (1.5-8.5); NEUTROPHILS % 80.0 % (36.0-66.0); PLATELET COUNT, AUTOMATED 176 10^3/uL (150-450)
[2025-01-31 06:36] LABS: CALCIUM LEVEL 8.0 MG/DL (8.3-10.6); CARBON DIOXIDE LEVEL 25 MMOL/L (20-31); CHLORIDE LEVEL 107 MMOL/L (98-107); CREATININE FOR GFR 0.62 MG/DL (0.70-1.30); GLOMERULAR FILTRATION RATE > 90.0 (>49); MAGNESIUM LEVEL 1.5 MG/DL (1.8-2.4); POTASSIUM SERUM 3.5 MMOL/L (3.5-5.1); SODIUM LEVEL 139 MMOL/L (136-145)
[2025-01-31] MEDS ORDERED: CYCLOBENZAPRINE 5 MG TABLET PO PRN (07:40)
[2025-01-31 08:00] VITALS: BP 111/61; TEMP 97.9; O2SAT 95
[2025-01-31] MEDS: APIXABAN 5 MG TAB PO SCH (09:15)
[2025-01-31] MEDS: MAGNESIUM OXIDE 400 MG TAB PO SCH (09:16)
[2025-01-31] MEDS: MAG SULF 1GM/100ML (MAG RUN) 1 GM in IV 1 EA IV SCH (09:16)
[2025-01-31] MEDS ORDERED: METOPROLOL TART 25 MG TABLET PO SCH (12:00)
[2025-01-31] MEDS: METOPROLOL TART 25 MG TABLET PO SCH (12:00)
[2025-01-31 12:33] VITALS: BP 115/63; TEMP 97.5; O2SAT 98
[2025-01-31 16:00] VITALS: BP 177/72; TEMP 98.4; O2SAT 98
[2025-01-31] MEDS ORDERED: ELIQ5TAB PO (19:35)
[2025-01-31] MEDS ORDERED: COLA100C5 PO (19:35)
[2025-01-31] MEDS ORDERED: METO1TAB87 PO (19:35)
[2025-01-31] MEDS ORDERED: MAGN400T33 PO (19:35)
[2025-01-31] MEDS ORDERED: ACET32TAB PO (19:38)
[2025-01-31 20:46] VITALS: BP 109/62; TEMP 97.9; O2SAT 20; O2SAT 99
[2025-02-01 00:01] VITALS: BP 112/66; TEMP 98.2; O2SAT 97
[2025-02-01 04:14] VITALS: BP 107/57; TEMP 98.6; O2SAT 97
[2025-02-01 05:43] LABS: BASO # 0.0 10^3/uL (0.0-0.2); BASO % 0.4 % (0.0-1.0); EOS # 0.1 10^3/uL (0.0-0.5); EOS % 2.1 % (0.0-3.0); LYMPH # 0.9 10^3/uL (1.5-5.0); LYMPH % 15.4 % (24.0-44.0); MONO # 0.9 10^3/uL (0.0-0.8); MONO % 15.4 % (2.0-8.0); NEUTROPHILS # 3.7 10^3/uL (1.5-8.5); NEUTROPHILS % 66.0 % (36.0-66.0); PLATELET COUNT, AUTOMATED 177 10^3/uL (150-450)
[2025-02-01 06:08] LABS: CALCIUM LEVEL 8.1 MG/DL (8.3-10.6); CARBON DIOXIDE LEVEL 26 MMOL/L (20-31); CHLORIDE LEVEL 108 MMOL/L (98-107); CREATININE FOR GFR 0.64 MG/DL (0.70-1.30); GLOMERULAR FILTRATION RATE > 90.0 (>49); MAGNESIUM LEVEL 1.6 MG/DL (1.8-2.4); POTASSIUM SERUM 3.5 MMOL/L (3.5-5.1); SODIUM LEVEL 141 MMOL/L (136-145)
[2025-02-01 06:51] VITALS: BP 127/63; TEMP 97.3; O2SAT 99
[2025-02-01 08:19] VITALS: BP 107/57; TEMP 98; O2SAT 99
[2025-02-01] MEDS: MAG SULF 1GM/100ML (MAG RUN) 1 GM in IV 1 EA IV SCH (09:27)
[2025-02-01 11:55] VITALS: BP 117/63
[2025-02-01 11:58] VITALS: BP 122/80; TEMP 97.7; O2SAT 96
== END 2025-02-01 13:35 | disposition home or self-care (01) | DRG 92 ==
LOC: EDBD 09:04 → M ED 09:04 → M ED INP 15:11 → M PCU 16:56
PROVIDERS: ADMIT Internal Medicine; ATTEND Internal Medicine
PROC: B246ZZZ Ultrasonography of Right and Left Heart (ICD-10-PCS; principal; 2025-02-01)
DX: R29.6 Repeated falls (principal); E87.1 Hypo-osmolality and hyponatremia; I48.91 Unspecified atrial fibrillation; I25.10 Atherosclerotic heart disease of native coronary artery without angina pectoris; Z95.2 Presence of prosthetic heart valve; R91.8 Other nonspecific abnormal finding of lung field; J44.9 Chronic obstructive pulmonary disease, unspecified; S22.41XG Multiple fractures of ribs, right side, subsequent encounter for fracture with delayed healing; J47.9 Bronchiectasis, uncomplicated; K80.20 Calculus of gallbladder without cholecystitis without obstruction; G40.909 Epilepsy, unspecified, not intractable, without status epilepticus; K44.9 Diaphragmatic hernia without obstruction or gangrene; K21.9 Gastro-esophageal reflux disease without esophagitis; W19.XXXA Unspecified fall, initial encounter; Y92.9 Unspecified place or not applicable; Y93.9 Activity, unspecified; F17.210 Nicotine dependence, cigarettes, uncomplicated; Z79.01 Long term (current) use of anticoagulants; Z79.899 Other long term (current) drug therapy

== ENCOUNTER 2025-02-08 10:45 | Observation (INO) | payer OTHER, MEDICARE ==
[~2025-02-08 10:45] MED LIST changes: +ACET32TAB PO; +COLA100C5 PO; +ELIQ5TAB PO; +MAGN400T33 PO; +METO1TAB87 PO; +THIAMINE 100 MG TAB PO SCH
[2025-02-08] MEDS: ACETAMINOPHEN *IV* 1,000 MG in IV 1 EA IV ONE (11:28)
[2025-02-08 11:52] LABS: BASO # 0.0 10^3/uL (0.0-0.2); BASO % 0.4 % (0.0-1.0); EOS # 0.0 10^3/uL (0.0-0.5); EOS % 0.4 % (0.0-3.0); LYMPH # 1.1 10^3/uL (1.5-5.0); LYMPH % 16.1 % (24.0-44.0); MONO # 0.6 10^3/uL (0.0-0.8); MONO % 8.5 % (2.0-8.0); NEUTROPHILS # 4.9 10^3/uL (1.5-8.5); NEUTROPHILS % 73.9 % (36.0-66.0); PLATELET COUNT, AUTOMATED 338 10^3/uL (150-450)
[2025-02-08 12:10] LABS: C REACTIVE PROTEIN QUANTITATIV 0.76 MG/DL (<1.0); CALCIUM LEVEL 8.7 MG/DL (8.3-10.6); CARBON DIOXIDE LEVEL 28 MMOL/L (20-31); CHLORIDE LEVEL 102 MMOL/L (98-107); CREATININE FOR GFR 0.77 MG/DL (0.70-1.30); GLOMERULAR FILTRATION RATE > 90.0 (>49); POTASSIUM SERUM 4.6 MMOL/L (3.5-5.1); SODIUM LEVEL 137 MMOL/L (136-145)
[2025-02-08] MEDS ORDERED: ACET-910 PO (13:17)
[2025-02-08] MEDS ORDERED: ELIQ5TAB PO (13:17)
[2025-02-08] MEDS ORDERED: MM S100C PO (13:17)
[2025-02-08] MEDS ORDERED: MAGN400T35 PO (13:17)
[2025-02-08] MEDS ORDERED: METO1TAB87 PO (13:17)
[2025-02-08] MEDS ORDERED: HOME MED LIST COMPLETE! XX SCH (13:20)
[2025-02-08] MEDS ORDERED: ACETAMINOPHEN 325 MG TAB PO PRN (13:55)
[2025-02-08] MEDS: MULTIVITAMINS/MINERALS THERAP 1 TAB PO SCH (14:47)
[2025-02-08] MEDS: FOLIC ACID 1 MG TAB PO SCH (14:47)
[2025-02-08] MEDS: THIAMINE 200MG 2ML VIAL IM ONE (14:55)
[2025-02-08 16:40] VITALS: BP 121/72; TEMP 98.3; O2SAT 96
[2025-02-08 17:05] VITALS: BP 121/72
[2025-02-08] MEDS: CYCLOBENZAPRINE 5 MG TABLET PO PRN (17:22)
[2025-02-08] MEDS: ACETAMINOPHEN *IV* 1,000 MG in IV 1 EA IV SCH (18:13)
[2025-02-08 20:00] VITALS: BP 116/67; TEMP 98.1; O2SAT 95
[2025-02-08] MEDS ORDERED: ACETAMINOPHEN *IV* 1,000 MG in IV 1 EA IV SCH (20:00)
[2025-02-08] MEDS: DOCUSATE SODIUM 100 MG CAPSULE PO SCH (20:40)
[2025-02-08] MEDS: APIXABAN 5 MG TAB PO SCH (20:40)
[2025-02-08] MEDS: DICLOFENAC EPOLAMINE 1.3% PATCH TOP SCH (20:40)
[2025-02-08 22:00] VITALS: BP 116/67
[2025-02-09 04:00] VITALS: BP 135/77; TEMP 97.9; O2SAT 95
[2025-02-09 06:11] LABS: PLATELET COUNT, AUTOMATED 312 10^3/uL (150-450)
[2025-02-09 06:18] VITALS: BP 135/77
[2025-02-09 06:31] LABS: CALCIUM LEVEL 8.1 MG/DL (8.3-10.6); CARBON DIOXIDE LEVEL 28 MMOL/L (20-31); CHLORIDE LEVEL 106 MMOL/L (98-107); CREATININE FOR GFR 0.73 MG/DL (0.70-1.30); GLOMERULAR FILTRATION RATE > 90.0 (>49); MAGNESIUM LEVEL 1.8 MG/DL (1.8-2.4); POTASSIUM SERUM 4.3 MMOL/L (3.5-5.1); SODIUM LEVEL 141 MMOL/L (136-145)
[2025-02-09] MEDS: THIAMINE 100 MG TAB PO SCH (09:13)
[2025-02-09] MEDS: traMADol 50 MG TAB PO PRN (09:14)
[2025-02-09] MEDS: FLUZONE HIGH DOSE (65+) 0.5 ML SYRINGE (25-26) IM.IMMUN ONE (09:16)
[2025-02-09 12:12] VITALS: BP 103/58; TEMP 99.6; O2SAT 94
[2025-02-09] MEDS ORDERED: METO1TAB32 PO (14:42)
== END 2025-02-09 16:18 ==
LOC: M ED 10:45 → EDBD 10:45 → M ED INP 10:46 → M MS4PR 16:27
PROVIDERS: ADMIT Student in an Organized Health Care Education/Training Program; ATTEND Student in an Organized Health Care Education/Training Program
DX: S32.301A Unspecified fracture of right ilium, initial encounter for closed fracture (principal); I25.10 Atherosclerotic heart disease of native coronary artery without angina pectoris; I48.91 Unspecified atrial fibrillation; J44.9 Chronic obstructive pulmonary disease, unspecified; K21.9 Gastro-esophageal reflux disease without esophagitis; F17.210 Nicotine dependence, cigarettes, uncomplicated; Z95.2 Presence of prosthetic heart valve; G40.909 Epilepsy, unspecified, not intractable, without status epilepticus; R29.6 Repeated falls; R10.21 Pelvic and perineal pain right side; Z71.6 Tobacco abuse counseling; Z79.01 Long term (current) use of anticoagulants; Z79.899 Other long term (current) drug therapy; W19.XXXA Unspecified fall, initial encounter; Y92.9 Unspecified place or not applicable; Y93.9 Activity, unspecified; Z23 Encounter for immunization

== ENCOUNTER 2025-02-09 14:39 | Inpatient (IN) | payer MEDICARE, OTHER ==
[~2025-02-09] VITALS: Ht 182.9 cm; Wt 64.3 kg
[~2025-02-09 14:39] MED LIST changes: +ACET-910 PO; +MAGN400T35 PO; +MM S100C PO; -THIAMINE 100 MG TAB PO SCH
[2025-02-09] MEDS ORDERED: METO1TAB32 PO (14:42)
[2025-02-09] MEDS ORDERED: BISACODYL 10 MG SUPP PR PRN (15:35)
[2025-02-09] MEDS ORDERED: ONDANSETRON 4MG ORAL DISINTEGRATING TAB PO PRN (15:35)
[2025-02-09] MEDS ORDERED: SIMETHICONE 80MG CHEW TAB PO PRN (15:35)
[2025-02-09] MEDS ORDERED: BISACODYL 5 MG TAB PO PRN (15:35)
[2025-02-09] MEDS ORDERED: MAALOX 30 ML SUSP *UDC PO PRN (15:35)
[2025-02-09] MEDS ORDERED: MOM 30 ML SUSPENSION UDC PO PRN (15:35)
[2025-02-09 16:15] VITALS: BP 120/62; TEMP 97.9; O2SAT 95
[2025-02-09] MEDS: ACETAMINOPHEN *IV* 1,000 MG in IV 1 EA IV SCH (18:31)
[2025-02-09 19:30] VITALS: BP 125/67
[2025-02-09 20:00] VITALS: BP 125/67; TEMP 98.2; O2SAT 92
[2025-02-09] MEDS: SENNOSIDES/DOCUSATE SODIUM 8.6 MG/50MG TAB PO SCH (21:10)
[2025-02-09] MEDS: DICLOFENAC EPOLAMINE 1.3% PATCH TOP SCH (21:10)
[2025-02-09] MEDS: MAGNESIUM OXIDE 400 MG TAB PO SCH (21:10)
[2025-02-09] MEDS: APIXABAN 5 MG TAB PO SCH (21:11)
[2025-02-10 04:00] VITALS: BP 126/78; TEMP 97.9; O2SAT 93
[2025-02-10 07:11] LABS: BASO # 0.0 10^3/uL (0.0-0.2); BASO % 0.6 % (0.0-1.0); EOS # 0.1 10^3/uL (0.0-0.5); EOS % 1.4 % (0.0-3.0); LYMPH # 0.6 10^3/uL (1.5-5.0); LYMPH % 8.4 % (24.0-44.0); MONO # 0.4 10^3/uL (0.0-0.8); MONO % 6.6 % (2.0-8.0); NEUTROPHILS # 5.5 10^3/uL (1.5-8.5); NEUTROPHILS % 82.7 % (36.0-66.0); PLATELET COUNT, AUTOMATED 297 10^3/uL (150-450)
[2025-02-10] MEDS: FOLIC ACID 1 MG TAB PO SCH (07:25)
[2025-02-10] MEDS: OMEPRAZOLE 20MG CAP PO SCH (07:25)
[2025-02-10] MEDS: MULTIVITAMINS/MINERALS THERAP 1 TAB PO SCH (07:26)
[2025-02-10] MEDS: METOPROLOL SUCC. 25 MG *XL* TAB PO SCH (07:27)
[2025-02-10 07:32] LABS: ALT/SGPT 11 U/L (7.0-40); AST/SGOT 17 U/L (<34); CALCIUM LEVEL 8.5 MG/DL (8.3-10.6); CARBON DIOXIDE LEVEL 28 MMOL/L (20-31); CHLORIDE LEVEL 104 MMOL/L (98-107); CREATININE FOR GFR 0.67 MG/DL (0.70-1.30); GLOMERULAR FILTRATION RATE > 90.0 (>49); POTASSIUM SERUM 4.3 MMOL/L (3.5-5.1); SODIUM LEVEL 137 MMOL/L (136-145)
[2025-02-10] MEDS: ACETAMINOPHEN 500 MG TAB PO SCH (11:53)
[2025-02-10 12:00] VITALS: BP 110/70; TEMP 98; O2SAT 94
[2025-02-10 20:25] VITALS: BP 141/70; TEMP 98.4; O2SAT 96
[2025-02-10 23:00] VITALS: BP 141/70
[2025-02-11] VITALS (7 sets, daily range): BP systolic 120–128; BP diastolic 63–73; TEMP 97.7–98.8; O2SAT 92–98
[2025-02-11] MEDS: MIRALAX *UNIT DOSE* 17 GM PACKET PO SCH (08:18)
[2025-02-12 04:00] VITALS: BP 135/76; TEMP 97.7; O2SAT 97
[2025-02-12 09:00] VITALS: BP 135/76
[2025-02-12 12:00] VITALS: BP 121/69; TEMP 98; O2SAT 93
[2025-02-12 20:01] VITALS: BP 112/64; TEMP 97.4; O2SAT 98
[2025-02-12] MEDS: CYCLOBENZAPRINE 5 MG TABLET PO PRN (20:27)
[2025-02-12 22:15] VITALS: BP 112/64
[2025-02-13 04:00] VITALS: BP 121/71; TEMP 97.4; O2SAT 98
[2025-02-13 08:00] VITALS: BP 116/70
[2025-02-13 12:00] VITALS: BP 118/65; TEMP 97.7; O2SAT 96
[2025-02-13 20:00] VITALS: BP 104/58; TEMP 97.5; O2SAT 98
[2025-02-14 04:00] VITALS: BP 109/67; TEMP 98.1; O2SAT 95
[2025-02-14 12:00] VITALS: BP 114/57; TEMP 96.9; O2SAT 97
[2025-02-14] MEDS ORDERED: OXYC-517 PO (16:26)
[2025-02-14] MEDS ORDERED: THERTAB19 PO (16:26)
[2025-02-14] MEDS ORDERED: METO1TAB32 PO (16:26)
[2025-02-14] MEDS ORDERED: OMEP-173 PO (16:26)
[2025-02-14] MEDS ORDERED: ELIQ5TAB PO (16:26)
[2025-02-14] MEDS ORDERED: DICL1PAT6 TOP (16:26)
[2025-02-14 20:00] VITALS: BP 104/58; TEMP 96.7; O2SAT 100
[2025-02-14] MEDS: traZODone 50 MG TAB PO PRN (23:28)
[2025-02-15 04:19] VITALS: BP 111/75; TEMP 98.6; O2SAT 93
[2025-02-15 08:07] VITALS: BP 126/75
[2025-02-15 12:00] VITALS: BP 134/66; TEMP 97.3; O2SAT 98
== END 2025-02-15 12:30 | disposition home health service (06) | DRG 561 ==
LOC: M PM&R 16:15
PROVIDERS: ADMIT Physical Medicine & Rehabilitation; ATTEND Physical Medicine & Rehabilitation
DX: S32.301D Unspecified fracture of right ilium, subsequent encounter for fracture with routine healing (principal); I25.10 Atherosclerotic heart disease of native coronary artery without angina pectoris; I48.91 Unspecified atrial fibrillation; J44.9 Chronic obstructive pulmonary disease, unspecified; K21.9 Gastro-esophageal reflux disease without esophagitis; F17.210 Nicotine dependence, cigarettes, uncomplicated; Z95.2 Presence of prosthetic heart valve; G40.909 Epilepsy, unspecified, not intractable, without status epilepticus; R29.6 Repeated falls; F10.20 Alcohol dependence, uncomplicated; R10.21 Pelvic and perineal pain right side; Z71.6 Tobacco abuse counseling; Z79.01 Long term (current) use of anticoagulants; Z79.899 Other long term (current) drug therapy; Z23 Encounter for immunization